=== PATIENT | female | born 1950 | race Caucasian/White ===

== ENCOUNTER → 2021-04-11 | Outpatient (CLI) | payer MEDICARE ==
[2021-04-11 15:46] LABS: U Amphetamine Screen Not Detected; U Barbituate Screen Not Detected; U Benzodiazapine Screen Not Detected; U Buprenorphine Screen Not Detected; U Cannabinoids Screen Not Detected; U Cocaine Screen Not Detected; U Methadone Screen Not Detected; U Methamphetamine Screen Not Detected; U Opiates Screen Not Detected; U Oxycodone Screen Not Detected; U Phencyclidine Screen Not Detected; U Propoxyphene Screen Not Detected
== END | disposition home or self-care (01) ==
LOC: LAB 12:45 → LAB SHORT 12:45
PROVIDERS: Family Medicine
DX: Z51.81 Encounter for therapeutic drug level monitoring (principal); Z79.891 Long term (current) use of opiate analgesic

== ENCOUNTER → 2021-10-27 | Outpatient (CLI) | payer MEDICARE, BC ==
[2021-10-27 11:51] LABS: U Amphetamine Screen Not Detected; U Barbituate Screen Not Detected; U Benzodiazapine Screen Not Detected; U Buprenorphine Screen Not Detected; U Cannabinoids Screen Not Detected; U Cocaine Screen Not Detected; U Methadone Screen Not Detected; U Methamphetamine Screen Not Detected; U Opiates Screen DETECTED; U Oxycodone Screen Not Detected; U Phencyclidine Screen Not Detected; U Propoxyphene Screen Not Detected
== END | disposition home or self-care (01) ==
LOC: LAB SHORT 10:05
PROVIDERS: Family Medicine
DX: Z51.81 Encounter for therapeutic drug level monitoring (principal); Z79.899 Other long term (current) drug therapy

== ENCOUNTER → 2022-02-03 | Outpatient (CLI) | payer MEDICARE, BC ==
[2022-02-03 18:37] LABS: Free Thyroxine 1.03 ng/dL (0.70-1.60)
[2022-02-03 18:42] LABS: Thyroid Stimulating Hormone 0.521 uIU/mL (0.360-4.800)
== END | disposition home or self-care (01) ==
LOC: LAB 10:45 → LAB SHORT 10:45 → LAB FUT 02-03 13:25 → EDSTATUS 02-03 13:25
PROVIDERS: Family Medicine
DX: E03.9 Hypothyroidism, unspecified (principal)
CPT/HCPCS: 84439; 84443

== ENCOUNTER → 2022-04-06 | Outpatient (CLI) | payer MEDICARE, BC ==
[2022-04-06 15:35] LABS: Percent Saturation 6.5 % (15.0-50.0)
[2022-04-06 16:03] LABS: BASOPHILS ABSOLUTE AUTO 0.09 K/mm3 (0.00-0.23); BASOPHILS PERCENT AUTO 1 % (0-2); EOSINOPHILS ABSOLUTE AUTO 0.28 K/mm3 (0.00-0.68); EOSINOPHILS PERCENT AUTO 5 % (0-6); Hematocrit 37.1 % (33.0-51.0); Hemoglobin 11.6 g/dL (11.5-16.0); IMMATURE GRAN ABSOLUTE AUTO 0.02 K/mm3 (0.00-0.10); IMMATURE GRAN PERCENT AUTO 0 % (0-1); LYMPHOCYTES ABSOLUTE AUTO 1.28 K/mm3 (0.84-5.20); LYMPHOCYTES PERCENT AUTO 21 % (21-46); MONOCYTES ABSOLUTE AUTO 0.59 K/mm3 (0.16-1.47); MONOCYTES PERCENT AUTO 10 % (4-13); Mean Corpuscular HGB 26.5 pg (26.0-34.0); Mean Corpuscular HGB Conc 31.3 g/dL (31.5-36.5); Mean Corpuscular Volume 85 fL (80-100); Mean Platelet Volume 11.1 fL (9.1-12.4); NEUTROPHILS ABSOLUTE AUTO 3.96 K/mm3 (1.96-9.15); NEUTROPHILS PERCENT AUTO 64 % (41-73); Platelet Count 429 K/mm3 (150-400); RDW Coefficient Variation 15.5 % (11.7-14.2); RDW Standard Deviation 47.9 fL (35.1-46.3); Red Blood Cell Count 4.38 M/mm3 (3.80-5.20); White Blood Cell Count 6.22 K/mm3 (4.00-11.30)
== END | disposition home or self-care (01) ==
LOC: LAB 13:03 → LAB SHORT 13:03
PROVIDERS: Family Medicine
DX: D50.9 Iron deficiency anemia, unspecified (principal); E03.9 Hypothyroidism, unspecified; R53.83 Other fatigue
CPT/HCPCS: 82728; 83540; 83550; 85025

== ENCOUNTER 2022-06-08 12:50 | Day surgery (SDC) | payer MEDICARE, BC ==
[~2022-06-08] VITALS: Ht 170.2 cm; Wt 98.3 kg
[2022-06-08] MEDS ORDERED: FLUO10 (13:45)
[2022-06-08] MEDS ORDERED: METO25ER (13:46)
[2022-06-08] MEDS ORDERED: LOSA25 (13:46)
[2022-06-08] MEDS ORDERED: PRAM.5 (13:47)
[2022-06-08] MEDS ORDERED: ACETAMIN-CODE12.5 M3 (13:47)
[2022-06-08] MEDS ORDERED: PREG100 (13:47)
[2022-06-08] MEDS ORDERED: FURO20 (13:47)
[2022-06-08] MEDS ORDERED: TIZA4 (13:48)
[2022-06-08] MEDS ORDERED: AMBIEN10 MG (13:48)
== END 2022-06-08 15:33 | disposition home or self-care (01) ==
LOC: ORSCSDS 12:50
PROVIDERS: Internal Medicine Gastroenterology
PROC: 0DB68ZX Excision of Stomach, Via Natural or Artificial Opening Endoscopic, Diagnostic (ICD-10-PCS; principal; 2022-06-08 14:30)
PROC: 0DB88ZX Excision of Small Intestine, Via Natural or Artificial Opening Endoscopic, Diagnostic (ICD-10-PCS; principal; 2022-06-08 14:30)
DX: D50.9 Iron deficiency anemia, unspecified (principal); R10.11 Right upper quadrant pain; Z98.84 Bariatric surgery status; K29.70 Gastritis, unspecified, without bleeding; Z79.899 Other long term (current) drug therapy
CPT/HCPCS: 88305; 88342; J0330; J0461; J2405; J2704; J7120

== ENCOUNTER → 2022-09-10 | Outpatient (CLI) | payer MEDICARE, BC ==
[~2022-09-10] MED LIST: ACETAMIN-CODE12.5 M3; AMBIEN10 MG; FLUO10; FURO20; LOSA25; METO25ER; PRAM.5; PREG100; TIZA4
== END ==
LOC: PLD 12:39 → LAB SHORT 12:39
DX: D48.5 Neoplasm of uncertain behavior of skin (principal)
CPT/HCPCS: 88305

== ENCOUNTER 2022-12-13 14:23 | Inpatient (IN) | payer MEDICARE, BC ==
[~2022-12-13] VITALS: Ht 170.2 cm; Wt 76.6 kg
[~2022-12-13 14:23] MED LIST changes: -Acetaminophen650 M1 PO; -FURO20 PO; -HYDROCODONE-AC1 EAC7 PO; -LEVOFLOXACIN250 M1 PO; -METO50ER PO; -NYSTRIT TOP; -PHOS-NAK PO; -PREGABALIN100 MG PO; -Prozac40 MG PO; -TRAZ100 PO; -VALSARTAN160 MG PO; -VISBIOME 112.51 EACH PO; -ZANAFLEX413 PO
[2022-12-13] MEDS ORDERED: ZANAFLEX413 PO (14:47)
[2022-12-13] MEDS ORDERED: PREGABALIN100 MG PO (14:47)
[2022-12-13] MEDS ORDERED: NYSTRIT TOP (14:48)
[2022-12-13] MEDS ORDERED: VALSARTAN160 MG PO (14:48)
[2022-12-13] MEDS ORDERED: TRAZ100 PO (14:48)
[2022-12-13] MEDS ORDERED: METO50ER PO (14:49)
[2022-12-13] MEDS ORDERED: HYDROCODONE-AC1 EAC7 PO (14:49)
[2022-12-13 17:15] LABS: Source, Urine Straight Cath
[2022-12-13 17:18] LABS: Appearance, Urine Hazy (Clear); Bilirubin, Urine Neg (Neg); Blood, Urine 1+ (Neg); Color, Urine Yellow (P-Yellow); Glucose Qualitative, Urine Neg (Neg); Ketones, Urine Neg (Neg); Leukocyte Esterase, Urine 2+ (Neg); Nitrite, Urine Pos (Neg); Protein, Urine 2+ (Neg); Urobilinogen, Urine NORM (Normal)
[2022-12-13 17:30] LABS: White Blood Cells, Urine 25-50 /hpf (0-5)
[2022-12-13 17:31] LABS: Bacteria Many /hpf; Hyaline Casts 0-2 /lpf (0-2); Squamous Epithelial Cells Rare /hpf (Few)
[2022-12-13] MEDS ORDERED: FURO20 PO (20:36)
[2022-12-13] MEDS ORDERED: Prozac40 MG PO (20:42)
[2022-12-13 22:01] VITALS: BP 117/77
[2022-12-13 22:07] LABS: Thyroid Stimulating Hormone 0.217 uIU/mL (0.360-4.800)
--- NOTE | 2022-12-14 03:33 | NUR ---
SHIFT SUMMARY NOC ADMIT FROM ED WITH DX OF CLARA/UTI. PT EXPERIENCED GROUND LEVEL FALL YESTERDAY AFTER HAVING DIZZYNESS/WEAKNESS FOR PAST 3 WEEKS. PT FELL AND BRACED WITH R ARM/HAND. IMAGING WAS NEGATIVE FOR FX. PT HAS HX OF MS SINCE 1996 AND HAS N/T IN ALL EXTREMETIES. PT ALSO HAS HX OF DVT AND D DIMER OF 3230 AND HAS LOWER VENOUS DUPLEX BL SCHEDULED FOR TODAY. PALLIATIVE CARE AND PT/OT CONSULTS ALSO SCHEDULED. PT POTASSIUM WAS 2.7 AND POOR RENAL FUNCTION LABS. PT IS A/O X 3-4 CAN BE FORGETFUL AT TIMES. PT IS 2PA TO BSC AND IS UNSTEADY OF FEET. PT HAS NS INFUSING @ 100 MLS/HR. PT DISCHARGE PENDING DIAGNOSTIC TEST AND LABS AFTER FLUID RECUSITATION AND POTASSIUM REPLACEMENT. DR QUINN FOLLOWS PT. PT IS CURRENTLY RESTING WITH BED ALARM ON, BED IN LOWEST POSITION, AND CALL LIGHT WITHIN REACH.
[2022-12-14 03:54] VITALS: BP 88/58
[2022-12-14 04:01] VITALS: BP 126/71
[2022-12-14 05:33] LABS: Albumin, Blood 3.1 g/dL (3.4-5.0); Anion Gap 5 mmol/L (6-16); Blood Urea Nitrogen 50 mg/dL (8-24); Bun/Creatinine Ratio 23.4 (12.0-20.0); CO2, Blood 24 mmol/L (21-32); Calcium, Blood 7.7 mg/dL (8.5-10.1); Chloride, Blood 115 mmol/L (98-108); Creatinine, Blood 2.14 mg/dL (0.40-1.00); Glomerular Filtration Rate 24 (60-); Glucose, Blood 107 mg/dL (70-99); Phosphorus, Blood 4.4 mg/dL (2.5-4.9); Potassium, Blood 3.8 mmol/L (3.5-5.5); Sodium, Blood 144 mmol/L (136-145)
[2022-12-14 07:46] VITALS: BP 94/60
--- NOTE | 2022-12-14 09:35 | NUR ---
pt laying in bed watching tv, a/ox3, pleasant and cooperative with care, follows commands well, denies pain at this time, lungs are clear t/o, resp even and unlabored, no cough noted, hrr, +1 edema noted to b/l le, ppp faint, cap refill <3sec, vs stable, afebrile, iv site to left fa, site has slight puffiness, and stops infusing, will place second iv later, +1 edema noted to b/l le, voids without diff, skin frail with bruising, coccyx is red but blanchable, has a right shoulder fx, arm is sore and can't move, refugio, call light in reach, Dr. Yang in to see pt, will keep one more day, may go home tomorrow.
[2022-12-14 19:19] VITALS: BP 123/78
--- NOTE | 2022-12-14 19:20 | NUR ---
Pt has had neck pain, provided rolled towel under neck for support which helped a bit, lost iv x2, infiltrated, charge nurse was not able to place power glide as veins are too small, notified Dr. she ok to stop fluid and change abx to oral, no further changes this shift, makes needs known, call light in reach.
--- NOTE | 2022-12-15 04:26 | NUR ---
SHIFT SUMMARY NO ACUTE CHANGES THIS SHIFT. PT CALLS WELL AND MAKES HER NEEDS KNOWN. SLEPT THROUGHOUT THE NIGHT COMFORTABLY. EAGER TO GO HOME. WILL REPORT TO ONCOMING NURSE.
[2022-12-15 06:04] LABS: Albumin, Blood 2.5 g/dL (3.4-5.0); Anion Gap 5 mmol/L (6-16); Blood Urea Nitrogen 29 mg/dL (8-24); Bun/Creatinine Ratio 22.5 (12.0-20.0); CO2, Blood 22 mmol/L (21-32); Chloride, Blood 117 mmol/L (98-108); Creatinine, Blood 1.29 mg/dL (0.40-1.00); Glomerular Filtration Rate 45 (60-); Glucose, Blood 87 mg/dL (70-99); Phosphorus, Blood 2.2 mg/dL (2.5-4.9); Potassium, Blood 3.6 mmol/L (3.5-5.5); Sodium, Blood 144 mmol/L (136-145)
[2022-12-15 06:25] VITALS: BP 90/67
[2022-12-15 07:41] VITALS: BP 93/76
[2022-12-15] MEDS ORDERED: Acetaminophen650 M1 PO (08:39)
[2022-12-15] MEDS ORDERED: LEVOFLOXACIN250 M1 PO (08:40)
[2022-12-15] MEDS ORDERED: VISBIOME 112.51 EACH PO (08:44)
[2022-12-15] MEDS ORDERED: PHOS-NAK PO (08:44)
--- NOTE | 2022-12-15 10:20 | NUR ---
PT AWAKE DURING SHIFT REPORT, SITTING UP IN BED. PT REQUESTED ASSIST TO BTHRM; SBA USING FWW. NO IV ACCESS AT START OF SHIFT. PT'S MEDS CHANGED TO PO FOR D/C HOME TODAY. D/C ORDERS PLACED. MEDS FAXED TO [facility], PER PT REQUEST. D/C INSTRUCTIONS AND MEDICATIONS REVIEWED WITH PT; VERBALIZED UNDERSTANDING. PT ABLE TO DRESS HERSELF AND NOTIFIED OF D/C. PT CALLED FOR ASSIST TO GO OUT VIA W/C WHEN AT ENTRANCE. ALL BELONGINGS WENT WITH PT.
== END 2022-12-15 09:50 | disposition home health service (06) | DRG 683 ==
LOC: ER 14:23 → MEDS 20:00 → ENPENDDIS 12-15 08:08 → MEDS 12-15 09:50
PROVIDERS: Emergency Medicine; Nurse Practitioner Acute Care; ADMIT Internal Medicine
DX: N17.9 Acute kidney failure, unspecified (principal); I47.1 Supraventricular tachycardia; I47.20 Ventricular tachycardia, unspecified; N39.0 Urinary tract infection, site not specified; Z51.5 Encounter for palliative care; Z66 Do not resuscitate; N18.31 Chronic kidney disease, stage 3a; I95.9 Hypotension, unspecified; I12.9 Hypertensive chronic kidney disease with stage 1 through stage 4 chronic kidney disease, or unspecified chronic kidney disease; G35 Multiple sclerosis; E86.1 Hypovolemia; R79.1 Abnormal coagulation profile; M25.531 Pain in right wrist; I87.2 Venous insufficiency (chronic) (peripheral); R63.4 Abnormal weight loss; B96.20 Unspecified Escherichia coli [E. coli] as the cause of diseases classified elsewhere; D63.1 Anemia in chronic kidney disease; R13.10 Dysphagia, unspecified; E87.6 Hypokalemia; D50.9 Iron deficiency anemia, unspecified; K25.9 Gastric ulcer, unspecified as acute or chronic, without hemorrhage or perforation; W18.30XA Fall on same level, unspecified, initial encounter; Z87.891 Personal history of nicotine dependence; Z68.25 Body mass index [BMI] 25.0-25.9, adult; Z96.611 Presence of right artificial shoulder joint; Z86.718 Personal history of other venous thrombosis and embolism; Z98.84 Bariatric surgery status; Z98.1 Arthrodesis status; Z79.899 Other long term (current) drug therapy; Z79.2 Long term (current) use of antibiotics; Z79.01 Long term (current) use of anticoagulants; Z79.891 Long term (current) use of opiate analgesic
CPT/HCPCS: 36415; 71045; 73090; 73110; 76770; 80069; 81001; 82550; 84443; 87077; 87086; 87186; 93005; 93010; 93970; 94760; 96361; 96365; 96375; 97110; 97166; 97535; 99285-25; A9270; J0696; J1644; J3480; J7030; P9612

== ENCOUNTER → 2022-12-13 | Outpatient (CLI) | payer MEDICARE, BC ==
[~2022-12-13] MED LIST changes: +Acetaminophen650 M1 PO; +FURO20 PO; +HYDROCODONE-AC1 EAC7 PO; +LEVOFLOXACIN250 M1 PO; +METO50ER PO; +NYSTRIT TOP; +PHOS-NAK PO; +PREGABALIN100 MG PO; +Prozac40 MG PO; +TRAZ100 PO; +VALSARTAN160 MG PO; +VISBIOME 112.51 EACH PO; +ZANAFLEX413 PO
[2022-12-13 13:26] LABS: BASOPHILS ABSOLUTE AUTO 0.07 K/mm3 (0.00-0.23); BASOPHILS PERCENT AUTO 1 % (0-2); EOSINOPHILS ABSOLUTE AUTO 0.13 K/mm3 (0.00-0.68); EOSINOPHILS PERCENT AUTO 1 % (0-6); Hematocrit 42.2 % (33.0-51.0); Hemoglobin 14.1 g/dL (11.5-16.0); IMMATURE GRAN ABSOLUTE AUTO 0.05 K/mm3 (0.00-0.10); IMMATURE GRAN PERCENT AUTO 1 % (0-1); LYMPHOCYTES ABSOLUTE AUTO 1.85 K/mm3 (0.84-5.20); LYMPHOCYTES PERCENT AUTO 20 % (21-46); MONOCYTES ABSOLUTE AUTO 0.58 K/mm3 (0.16-1.47); MONOCYTES PERCENT AUTO 6 % (4-13); Mean Corpuscular HGB 30.1 pg (26.0-34.0); Mean Corpuscular HGB Conc 33.4 g/dL (31.5-36.5); Mean Corpuscular Volume 90 fL (80-100); Mean Platelet Volume 10.4 fL (9.1-12.4); NEUTROPHILS ABSOLUTE AUTO 6.64 K/mm3 (1.96-9.15); NEUTROPHILS PERCENT AUTO 71 % (41-73); Platelet Count 322 K/mm3 (150-400); RDW Coefficient Variation 13.3 % (11.7-14.2); RDW Standard Deviation 43.8 fL (35.1-46.3); Red Blood Cell Count 4.68 M/mm3 (3.80-5.20); White Blood Cell Count 9.32 K/mm3 (4.00-11.30)
[2022-12-13 13:44] LABS: Albumin, Blood 3.7 g/dL (3.4-5.0); Albumin/Globulin Ratio 1.1 (0.8-1.8); Bilirubin, Total 0.4 mg/dL (0.1-1.0); Bun/Creatinine Ratio 14.7 (12.0-20.0); Calcium, Blood 8.4 mg/dL (8.5-10.1); Creatinine, Blood 4.09 mg/dL (0.40-1.00); Globulin, Blood 3.3 g/dL (2.2-4.0); Potassium, Blood 2.7 mmol/L (3.5-5.5)
== END | disposition home or self-care (01) ==
LOC: LAB 13:21 → LAB SHORT 13:21
PROVIDERS: Physician Assistant
DX: R55 Syncope and collapse (principal)
CPT/HCPCS: 80053; 84484; 85025; 85379

== ENCOUNTER → 2022-12-28 | Outpatient (CLI) | payer MEDICARE, BC ==
[~2022-12-28] MED LIST changes: +Acetaminophen650 M1 PO; +FURO20 PO; +HYDROCODONE-AC1 EAC7 PO; +LEVOFLOXACIN250 M1 PO; +METO50ER PO; +NYSTRIT TOP; +PHOS-NAK PO; +PREGABALIN100 MG PO; +Prozac40 MG PO; +TRAZ100 PO; +VALSARTAN160 MG PO; +VISBIOME 112.51 EACH PO; +ZANAFLEX413 PO
[2022-12-28 11:09] LABS: BASOPHILS ABSOLUTE AUTO 0.07 K/mm3 (0.00-0.23); BASOPHILS PERCENT AUTO 1 % (0-2); EOSINOPHILS ABSOLUTE AUTO 0.15 K/mm3 (0.00-0.68); EOSINOPHILS PERCENT AUTO 3 % (0-6); Hematocrit 41.3 % (33.0-51.0); Hemoglobin 13.7 g/dL (11.5-16.0); IMMATURE GRAN ABSOLUTE AUTO 0.01 K/mm3 (0.00-0.10); IMMATURE GRAN PERCENT AUTO 0 % (0-1); LYMPHOCYTES ABSOLUTE AUTO 1.28 K/mm3 (0.84-5.20); LYMPHOCYTES PERCENT AUTO 22 % (21-46); MONOCYTES ABSOLUTE AUTO 0.31 K/mm3 (0.16-1.47); MONOCYTES PERCENT AUTO 5 % (4-13); Mean Corpuscular HGB 30.6 pg (26.0-34.0); Mean Corpuscular HGB Conc 33.2 g/dL (31.5-36.5); Mean Corpuscular Volume 92 fL (80-100); Mean Platelet Volume 10.1 fL (9.1-12.4); NEUTROPHILS ABSOLUTE AUTO 4.09 K/mm3 (1.96-9.15); NEUTROPHILS PERCENT AUTO 69 % (41-73); Platelet Count 270 K/mm3 (150-400); RDW Coefficient Variation 14.5 % (11.7-14.2); RDW Standard Deviation 48.7 fL (35.1-46.3); Red Blood Cell Count 4.47 M/mm3 (3.80-5.20); White Blood Cell Count 5.91 K/mm3 (4.00-11.30)
[2022-12-28 11:25] LABS: Albumin, Blood 3.7 g/dL (3.4-5.0); Bilirubin, Total 0.5 mg/dL (0.1-1.0); Bun/Creatinine Ratio 10.9 (12.0-20.0); Calcium, Blood 8.7 mg/dL (8.5-10.1); Creatinine, Blood 1.19 mg/dL (0.40-1.00); Globulin, Blood 3.6 g/dL (2.2-4.0); Potassium, Blood 3.3 mmol/L (3.5-5.5); Total Protein, Blood 7.3 g/dL (6.4-8.2)
== END | disposition home or self-care (01) ==
LOC: LAB SHORT 11:05 → LAB 11:05
PROVIDERS: Family Medicine
DX: N18.4 Chronic kidney disease, stage 4 (severe) (principal)
CPT/HCPCS: 80053; 85025

== ENCOUNTER 2023-04-08 15:34 | Emergency (ER) | payer MEDICARE, BC ==
[~2023-04-08] VITALS: Ht 170.2 cm; Wt 75.8 kg
[2023-04-08] MEDS ORDERED: OXAYDO5 M1 PO (17:47)
[2023-04-08] MEDS ORDERED: DOC250 PO (17:49)
[2023-04-08 19:39] VITALS: BP 97/66
== END 2023-04-08 19:40 | disposition home or self-care (01) ==
LOC: ER 15:34
DX: S82.61XA Displaced fracture of lateral malleolus of right fibula, initial encounter for closed fracture (principal); W18.30XA Fall on same level, unspecified, initial encounter; Z79.899 Other long term (current) drug therapy; Z87.891 Personal history of nicotine dependence
CPT/HCPCS: 27788; 73610; 96372-59; 99283-25; A9270; J3010

== ENCOUNTER 2023-12-07 14:14 | Inpatient (IN) | payer MEDICARE, BC ==
[2023-12-07] VITALS (13 sets, daily range): BP systolic 82–137; BP diastolic 70–112
[~2023-12-07] VITALS: Ht 167.6 cm; Wt 64.0 kg
[~2023-12-07 14:14] MED LIST changes: +DOC250 PO; +OXAYDO5 M1 PO
[2023-12-07] MEDS ORDERED: NS IV ONE (14:40)
[2023-12-07] MEDS ORDERED: FOSPHENYTOIN PE IV ONE (14:40)
[2023-12-07 14:42] LABS: BASOPHILS ABSOLUTE AUTO 0.12 K/mm3 (0.00-0.23); BASOPHILS PERCENT AUTO 1 % (0-2); EOSINOPHILS ABSOLUTE AUTO 0.18 K/mm3 (0.00-0.68); EOSINOPHILS PERCENT AUTO 1 % (0-6); Hematocrit 42.7 % (33.0-51.0); Hemoglobin 13.6 g/dL (11.5-16.0); IMMATURE GRAN ABSOLUTE AUTO 0.09 K/mm3 (0.00-0.10); IMMATURE GRAN PERCENT AUTO 1 % (0-1); LYMPHOCYTES ABSOLUTE AUTO 3.35 K/mm3 (0.84-5.20); LYMPHOCYTES PERCENT AUTO 19 % (21-46); MONOCYTES ABSOLUTE AUTO 0.45 K/mm3 (0.16-1.47); MONOCYTES PERCENT AUTO 3 % (4-13); Mean Corpuscular HGB 30.1 pg (26.0-34.0); Mean Corpuscular HGB Conc 31.9 g/dL (31.5-36.5); Mean Corpuscular Volume 95 fL (80-100); Mean Platelet Volume 9.6 fL (9.1-12.4); NEUTROPHILS ABSOLUTE AUTO 13.55 K/mm3 (1.96-9.15); NEUTROPHILS PERCENT AUTO 76 % (41-73); Platelet Count 487 K/mm3 (150-400); RDW Coefficient Variation 14.9 % (11.7-14.2); RDW Standard Deviation 52.7 fL (35.1-46.3); Red Blood Cell Count 4.52 M/mm3 (3.80-5.20); White Blood Cell Count 17.74 K/mm3 (4.00-11.30)
[2023-12-07 15:00] LABS: Ethanol (Alcohol), Blood, Med <3 mg/dL
[2023-12-07 15:03] LABS: Alanine Aminotransfer (ALT/SGP 67 U/L (12-78); Albumin, Blood 3.8 g/dL (3.4-5.0); Albumin/Globulin Ratio 1.2 (0.8-1.8); Alk Phos 149 U/L (50-136); Anion Gap 17 mmol/L (3-11); Aspartate Aminotrans (AST/SGOT 56 U/L (12-37); Bilirubin, Total 0.5 mg/dL (0.1-1.0); Blood Urea Nitrogen 21 mg/dL (8-24); Bun/Creatinine Ratio 13.8 (12.0-20.0); CO2, Blood 14 mmol/L (21-32); Calcium, Blood 8.7 mg/dL (8.5-10.1); Chloride, Blood 108 mmol/L (98-108); Creatinine, Blood 1.52 mg/dL (0.40-1.00); Globulin, Blood 3.3 g/dL (2.2-4.0); Glomerular Filtration Rate 36 (60-); Glucose, Blood 283 mg/dL (70-99); Sodium, Blood 135 mmol/L (136-145); Total Protein, Blood 7.1 g/dL (6.4-8.2)
[2023-12-07 15:50] LABS: U Amphetamine Screen Not Detected; U Barbituate Screen Not Detected; U Benzodiazapine Screen Not Detected; U Buprenorphine Screen Not Detected; U Cannabinoids Screen Not Detected; U Cocaine Screen Not Detected; U Methadone Screen Not Detected; U Methamphetamine Screen Not Detected; U Opiates Screen Not Detected; U Oxycodone Screen Not Detected; U Phencyclidine Screen Not Detected
[2023-12-07] MEDS ORDERED: NS 1,000 ML IV SCH ×2 (15:50→17:35)
[2023-12-07] MEDS ORDERED: Acetaminophen 500 MG Tab PO ONE (15:50)
[2023-12-07 15:53] LABS: Source, Urine Straight Cath
[2023-12-07 15:56] LABS: Appearance, Urine Cloudy (Clear); Bilirubin, Urine Neg (Neg); Blood, Urine 2+ (Neg); Color, Urine Yellow (P-Yellow); Glucose Qualitative, Urine Neg (Neg); Ketones, Urine Neg (Neg); Leukocyte Esterase, Urine 1+ (Neg); Nitrite, Urine Neg (Neg); Protein, Urine 4+ (Neg); Urobilinogen, Urine NORM (Normal)
[2023-12-07 16:03] LABS: Bacteria Many /hpf; Squamous Epithelial Cells Many /hpf (Few)
[2023-12-07 16:04] LABS: Amorphous Light (0-Heavy); Red Blood Cells, Urine 0-2 /hpf (0-2)
[2023-12-07] MEDS ORDERED: CHOLESTYRAMI239.4 G1 PO (16:14)
[2023-12-07] MEDS ORDERED: PRAMIPEXOLE D0.25 M1 PO (16:14)
[2023-12-07] MEDS ORDERED: CALCITRIOL0.25 MC4 PO (16:14)
[2023-12-07] MEDS ORDERED: MIRT15ST PO (16:15)
[2023-12-07] MEDS ORDERED: TOPROL XL50 MG PO (16:15)
[2023-12-07] MEDS ORDERED: Ondansetron HCl 2 MG / ML 2ML Vial IV PRN (17:35)
[2023-12-07] MEDS ORDERED: Acetaminophen 325 MG TABLET PO PRN (17:35)
[2023-12-07] MEDS ORDERED: LORazepam 2 MG/ML 1ML Injection IV ONE (18:00)
[2023-12-07] MEDS ORDERED: NS 1,000 ML IV ONE ×2 (18:00→18:20)
[2023-12-07] MEDS ORDERED: levETIRAcetam 500 MG in NS 100 ML IV SCH (18:00)
[2023-12-07] MEDS ORDERED: LORazepam 2 MG/ML 1ML Injection IV PRN (18:00)
--- NOTE | 2023-12-07 18:04 | NUR ---
Telephone report from CATRINA Cordova RN. Pt will be coming to PCU 9 shortly. MRI pending.
[2023-12-07] MEDS ORDERED: Mirtazapine 15 MG SoluTab PO ONE (20:25)
[2023-12-07] MEDS ORDERED: Pramipexole DI-HCL 0.25 MG Tab PO SCH (21:00)
[2023-12-07] MEDS ORDERED: Pregabalin 50 MG Capsule PO SCH (21:00)
[2023-12-07] MEDS ORDERED: Heparin Sodium,Porcine 5,000 UNIT/0.5 ML SDV SC SCH (21:00)
[2023-12-07] MEDS ORDERED: TraZODone HCl 100 MG Tab PO SCH (21:00)
[2023-12-07] MEDS ORDERED: MIRTAZAPINE 7.5 MG PO SCH (21:00)
[2023-12-07] MEDS ORDERED: Mirtazapine 15 MG Tab PO SCH (21:00)
[2023-12-08] VITALS (32 sets, daily range): BP systolic 53–188; BP diastolic 33–102
[2023-12-08] MEDS ORDERED: Prozac20 MG PO (04:48)
[2023-12-08 06:08] LABS: Hemoglobin 11.9 g/dL (11.5-16.0); Mean Corpuscular HGB 29.6 pg (26.0-34.0); Mean Corpuscular HGB Conc 32.2 g/dL (31.5-36.5); Mean Corpuscular Volume 92 fL (80-100); Platelet Count 388 K/mm3 (150-400); RDW Coefficient Variation 15.6 % (11.7-14.2); RDW Standard Deviation 52.7 fL (35.1-46.3); Red Blood Cell Count 4.02 M/mm3 (3.80-5.20); White Blood Cell Count 9.14 K/mm3 (4.00-11.30)
[2023-12-08 06:35] LABS: Bun/Creatinine Ratio 14.8 (12.0-20.0); Calcium, Blood 8.1 mg/dL (8.5-10.1); Creatinine, Blood 1.42 mg/dL (0.40-1.00); Potassium, Blood 3.8 mmol/L (3.5-5.5)
--- NOTE | 2023-12-08 06:41 | NUR ---
SHIFT SUMMARY PATIENT ALERT AND ORIENTED X3, WAS CONFUSED AT BEGINNING OF SHIFT BUT MENTATION HAS BEEN CLEARING THE NIGHT HAS GONE ON. PATIENT IS WEAK AND UNSTEADY ON HER FEET, REQUIRING A 2 PERSON ASSIST TO THE BEDSIDE COMMODE. PATIENT IS ON ROOM AIR WITH SPO2 >90%. VITAL SIGNS STABLE, SINUS RHYTHM ON TELE. WILL CONTINUE TO MONITOR. CALL LIGHT WITHIN REACH.
[2023-12-08] MEDS ORDERED: Enoxaparin 40 MG/0.4 ML SYR SC SCH (09:00)
[2023-12-08] MEDS ORDERED: TiZANidine HCl 4 MG Tab PO SCH (09:00)
[2023-12-08] MEDS ORDERED: Calcitriol 0.25 MCG Cap PO SCH (09:00)
[2023-12-08] MEDS ORDERED: FLUoxetine HCL 20 MG CAP PO SCH (09:00)
[2023-12-08] MEDS ORDERED: Metoprolol Succinate 50 MG TABCR PO SCH (09:00)
[2023-12-08] MEDS ORDERED: Lactated Ringer's 1,000 ML IV ONE ×2 (09:08→09:10)
[2023-12-08] MEDS ORDERED: CefTRIAXone Sodium 1,000 MG in NS 100 ML IV SCH (09:22)
[2023-12-08] MEDS ORDERED: Cosyntropin 0.25 MG / ML 1ML Vial IV ONE (09:25)
[2023-12-08] MEDS ORDERED: NS 500 ML IV ONE (10:15)
--- NOTE | 2023-12-08 10:26 | NUR ---
AM NOTE AT APPROXIMATELY 0849 PT BEGAN COMPLAINING OF DIZZINESS. BP WAS TAKEN AND WAS 69/57, BP RETAKEN ON OTHER ARM WAS SHOWN TO BE 58/47. DR. NAIDU WAS CALLED AND PRESENTED TO ROOM, PT WAS PLACED IN TRENDELENBERG POSITION AND 1L BOLUS WAS STARTED. PT'S MENTATION HAD CHANGED TO DROWSY AND DIFFICULT TO WAKE. BP'S REMAINED SOFT. WITH BOLUS PT BEGAN TO REPORT FEELING BETTER AND APPEARED TO BE MORE WAKEFUL. WAS ALSO NOTIFIED BY TELE THAT PT HAD QTC PROLONGATION AT 6.06. PER BALAJI AGUILERA TO BE HELD. EKG COMPLETED. LABS DRAWN. PT CURRENTLY GETTING ECHO.
--- NOTE | 2023-12-08 12:00 | NUR ---
Pt is quite alert, oriented, and appropriate in conversation. Vital signs are stable. NS infusing now at 100 cc/hour. Bill at the bedside. Pt states she is not very hungry. States 50 pound weight loss since September this year.
[2023-12-08] MEDS ORDERED: Calcium Chloride 10% 1,000 MG in NS 50 ML IV SCH (13:00)
[2023-12-08] MEDS ORDERED: VALPROATE SODIUM IV SCH (13:00)
[2023-12-08] MEDS ORDERED: NS IV SCH (13:00)
[2023-12-08 13:33] LABS: Free Thyroxine 1.1 ng/dL (0.70-1.60); Triiodothyronine, Free 1.2 pg/mL (2.18-3.98)
--- NOTE | 2023-12-08 13:33 | NUR ---
Pt repositioned. B/P remains stable, and the pt is feeling well. She requested that the wick be removed, next time she would prefer to use the BSC. Assisted to reposition to her right side.
--- NOTE | 2023-12-08 14:20 | NUR ---
Pt continues to be alert, oriented and mentating well. Her vital signs remain stable.
--- NOTE | 2023-12-08 14:22 | NUR ---
MRI pending. sales service technician states they requested stat medical records re: her loop recorder from [facility] in [place], [place] in order to proceed.
[2023-12-08] MEDS ORDERED: NS 250 ML IV PRN (17:40)
--- NOTE | 2023-12-08 18:07 | NUR ---
SHIFT SUMMARY NO ACUTE CHANGES SINCE AM NOTE. PT HAS REMAINED A&O X4, BP REMAINED STABLE, NO C/O DIZZINESS, SOB, OR CP. PUREWICK IN PLACE, DRAINING CLEAR YELLOW URINE. SPO2 >90% ON RA. PT IS RESTING COMFORTABLY, CALL LIGHT WITHIN REACH, BED IN LOWEST POSITION, BREATHING EVEN AND UNLABORED.
[2023-12-09] VITALS (12 sets, daily range): BP systolic 85–159; BP diastolic 64–99
[2023-12-09 05:09] LABS: BASOPHILS ABSOLUTE AUTO 0.05 K/mm3 (0.00-0.23); BASOPHILS PERCENT AUTO 1 % (0-2); EOSINOPHILS ABSOLUTE AUTO 0.06 K/mm3 (0.00-0.68); EOSINOPHILS PERCENT AUTO 1 % (0-6); Hematocrit 33.2 % (33.0-51.0); Hemoglobin 10.4 g/dL (11.5-16.0); IMMATURE GRAN ABSOLUTE AUTO 0.04 K/mm3 (0.00-0.10); IMMATURE GRAN PERCENT AUTO 0 % (0-1); LYMPHOCYTES ABSOLUTE AUTO 2.31 K/mm3 (0.84-5.20); LYMPHOCYTES PERCENT AUTO 21 % (21-46); MONOCYTES ABSOLUTE AUTO 0.71 K/mm3 (0.16-1.47); MONOCYTES PERCENT AUTO 7 % (4-13); Mean Corpuscular HGB 29.5 pg (26.0-34.0); Mean Corpuscular HGB Conc 31.3 g/dL (31.5-36.5); Mean Corpuscular Volume 94 fL (80-100); Mean Platelet Volume 10.2 fL (9.1-12.4); NEUTROPHILS ABSOLUTE AUTO 7.81 K/mm3 (1.96-9.15); NEUTROPHILS PERCENT AUTO 71 % (41-73); Platelet Count 330 K/mm3 (150-400); RDW Coefficient Variation 16.1 % (11.7-14.2); RDW Standard Deviation 55.7 fL (35.1-46.3); Red Blood Cell Count 3.52 M/mm3 (3.80-5.20); White Blood Cell Count 10.98 K/mm3 (4.00-11.30)
[2023-12-09 05:56] LABS: Valproic Acid 41.3 ug/mL (50.0-100.0)
[2023-12-09 05:57] LABS: Alanine Aminotransfer (ALT/SGP 34 U/L (12-78); Albumin, Blood 2.9 g/dL (3.4-5.0); Albumin/Globulin Ratio 1.1 (0.8-1.8); Alk Phos 101 U/L (50-136); Anion Gap 13 mmol/L (3-11); Aspartate Aminotrans (AST/SGOT 21 U/L (12-37); Bilirubin, Total 0.2 mg/dL (0.1-1.0); Blood Urea Nitrogen 18 mg/dL (8-24); Bun/Creatinine Ratio 11.8 (12.0-20.0); CO2, Blood 18 mmol/L (21-32); Calcium, Blood 8.1 mg/dL (8.5-10.1); Chloride, Blood 118 mmol/L (98-108); Creatinine, Blood 1.53 mg/dL (0.40-1.00); Globulin, Blood 2.7 g/dL (2.2-4.0); Glomerular Filtration Rate 36 (60-); Glucose, Blood 78 mg/dL (70-99); Potassium, Blood 3.2 mmol/L (3.5-5.5); Sodium, Blood 146 mmol/L (136-145); Total Protein, Blood 5.6 g/dL (6.4-8.2)
--- NOTE | 2023-12-09 06:35 | NUR ---
SHIFT SUMMARY PATIENT ALERT AND ORIENTED X4. HAD NO COMPLAINTS OF PAIN OR SHORTNESS OF BREATH. ON ROOM AIR WITH SPO2 >90%. VITAL SIGNS STABLE, SINUS RHYTHM ON TELE. NO ACUTE ISSUES NOTED OVERNIGHT. WILL CONTINUE TO MONITOR. CALL LIGHT WITHIN REACH.
[2023-12-09] MEDS ORDERED: Potassium Chloride 10 Meq Tablet SA PO ONE (07:00)
--- NOTE | 2023-12-09 07:50 | NUR ---
AM ASSESSMENT: Pt resting in bed. Wakes to verbal stimulus. LS clear, HR reg. BT positive. Denies CP or SOB. BP stable this am. Pt is A/O x4. Updated on plan of care. Denies questions. WIll continue to monitor, call light in reach.
[2023-12-09] MEDS ORDERED: Divalproex Sodium 125 MG CAP PO SCH (09:00)
[2023-12-09] MEDS ORDERED: FLUoxetine HCL 20 MG CAP PO SCH (09:00)
[2023-12-09] MEDS ORDERED: Lactated Ringer's 1,000 ML IV ONE ×2 (11:01→11:10)
[2023-12-09 11:25] LABS: Bun/Creatinine Ratio 11.3 (12.0-20.0); Calcium, Blood 7.7 mg/dL (8.5-10.1); Creatinine, Blood 1.5 mg/dL (0.40-1.00); Potassium, Blood 3.9 mmol/L (3.5-5.5)
[2023-12-09 11:37] LABS: Hematocrit 27.2 % (33.0-51.0); Hemoglobin 8.8 g/dL (11.5-16.0)
[2023-12-09 12:34] LABS: BASOPHILS ABSOLUTE AUTO 0.05 K/mm3 (0.00-0.23); BASOPHILS PERCENT AUTO 1 % (0-2); EOSINOPHILS ABSOLUTE AUTO 0.11 K/mm3 (0.00-0.68); EOSINOPHILS PERCENT AUTO 1 % (0-6); Hematocrit 27.3 % (33.0-51.0); Hemoglobin 8.6 g/dL (11.5-16.0); IMMATURE GRAN ABSOLUTE AUTO 0.03 K/mm3 (0.00-0.10); IMMATURE GRAN PERCENT AUTO 0 % (0-1); LYMPHOCYTES PERCENT AUTO 20 % (21-46); MONOCYTES ABSOLUTE AUTO 0.58 K/mm3 (0.16-1.47); MONOCYTES PERCENT AUTO 7 % (4-13); Mean Corpuscular HGB 30.3 pg (26.0-34.0); Mean Corpuscular HGB Conc 31.5 g/dL (31.5-36.5); Mean Corpuscular Volume 96 fL (80-100); Mean Platelet Volume 10.2 fL (9.1-12.4); NEUTROPHILS PERCENT AUTO 72 % (41-73); Platelet Count 267 K/mm3 (150-400); RDW Coefficient Variation 16.1 % (11.7-14.2); RDW Standard Deviation 56.8 fL (35.1-46.3); Red Blood Cell Count 2.84 M/mm3 (3.80-5.20); White Blood Cell Count 8.67 K/mm3 (4.00-11.30)
[2023-12-09 12:38] LABS: Bun/Creatinine Ratio 12.2 (12.0-20.0); Calcium, Blood 7.4 mg/dL (8.5-10.1); Creatinine, Blood 1.48 mg/dL (0.40-1.00)
--- NOTE | 2023-12-09 16:37 | NUR ---
[facility] visit conducted. I visited with patient's spouse in the hallway yesterday and with the patient today. We talk about how the patient was deeply concerned about her yesterday but today some friends from [place] arrived to help both of them through this season. Patient is so pleasant and thoughtful. She talks at length about her life; the places they have lived the careers they have had and the friends they have met along the way. She tells me about her hobbies and the places that inspire and fill her. I normalize her fears and feelings, and provide therapeutic listening and a calming presence. Patient voices her appreciation for the visit.
[2023-12-09 17:29] LABS: Hematocrit 32.9 % (33.0-51.0); Hemoglobin 10.5 g/dL (11.5-16.0)
--- NOTE | 2023-12-09 18:10 | NUR ---
SHIFT SUMMARY: Pt was hypotensive this afternoon and required a 1L bolus of LR. This brought BP back up to within normal range. Pt was not symptomatic with the low BP. Denied dizziness or lightheadedness. Pt had EEG today as wall as CT scan of chest, abd and pelvis. No s/s of siezure activity today. No other changes. Stable at this time. Will report to night RN.
[2023-12-09] MEDS ORDERED: TraZODone HCl 50 MG Tab PO SCH (21:00)
[2023-12-09] MEDS ORDERED: Lactobacil 2-S.Thermo-Bifido 1 1 Cap PO SCH (21:00)
[2023-12-10] VITALS (10 sets, daily range): BP systolic 117–185; BP diastolic 70–117
[2023-12-10 04:11] LABS: Hematocrit 34.5 % (33.0-51.0); Hemoglobin 11.1 g/dL (11.5-16.0)
--- NOTE | 2023-12-10 06:04 | NUR ---
SHIFT SUMMARY NO ACUTE CHANGES THIS SHIFT. VSS. REMAINS AXO4, NO SEIZURE LIKE EVENTS THIS SHIFT. BP STABLE. REMAINS ON RA. QT ACCORDING TO TELE IS 470. CONTINUING TO AVOID PROLONGING AGENTS. PT HAS RESTED OFF AND ON THIS SHIFT. HAS HAD A FEW LOOSE STOOLS AND OTHERWISE NOT CALLED MUCH. BED ALARM ON AND CALL LIGHT WTHIN REACH.
[2023-12-10 08:03] LABS: Calcium, Blood 8.4 mg/dL (8.5-10.1); Creatinine, Blood 1.43 mg/dL (0.40-1.00); Potassium, Blood 4.2 mmol/L (3.5-5.5)
[2023-12-10] MEDS ORDERED: TiZANidine HCl 4 MG Tab PO SCH (09:00)
--- NOTE | 2023-12-10 09:42 | NUR ---
PT TO MRI AT THIS TIME.
--- NOTE | 2023-12-10 10:56 | NUR ---
AM NOTE: THIS RN ASSUMED CARE OF PT AT APPROX 0700. PT ALERT, ORIENTED X4 THIS AM. ABLE TO CALL APPROPRIATELY & COMMUNICATE NEEDS. UP TO CHAIR FOR BREAKFAST. HR 80'S, SINUS ON TELE. SBP 170'S, MD AWARE. DENIES CHEST PAIN/PRESSURE. SPO2 >95% ON RA, DENIES SOB. MRI COMPLETED THIS AM. PT W/ VISITORS AT BEDSIDE AT THIS TIME. SEE ASSESSMENT FOR FURTHER DETAILS. CALL LIGHT IN REACH.
[2023-12-10 12:16] LABS: Stool Occult Bld Immuno 1 Negative (NEGATIVE)
[2023-12-10 17:08] LABS: Bun/Creatinine Ratio 15.7 (12.0-20.0); Calcium, Blood 8.8 mg/dL (8.5-10.1); Creatinine, Blood 1.59 mg/dL (0.40-1.00); Potassium, Blood 4.3 mmol/L (3.5-5.5)
--- NOTE | 2023-12-10 17:35 | NUR ---
END OF SHIFT NOTE: NO ACUTE EVENTS THIS SHIFT. PT LETHARGIC THIS AFTERNOON. ORIENTED X4, ABLE TO CALL APPROPRIATELY & COMMUNICATE NEEDS. HR 70-80'S, SINUS ON TELE. SBP 140-170'S. SPO2 >95% ON RA. MRI COMPLETED THIS SHIFT. NO S/SX OF SEIZURE ACTIVITY. PT ABLE TO WORK W/ PHYSICAL THERAPY THIS AFTERNOON & AMBULATE W/ FWW INTO HALLWAY. ABLE TO REPOSITION IN BED INDEPENDENTLY, 1P SBA TO BATHROOM. ADEQUATE PO INTAKE THIS SHIFT. DENIES N/V. NO OTHER NEEDS AT THIS TIME. PT RESTING IN BED W/ CALL LIGHT IN REACH.
--- NOTE | 2023-12-10 17:55 | NUR ---
PHYSICIAN CONTACT: PT'S SBP 180'S THIS EVENING. CALL TO MD NAIDU. ORDERS RECEIVED TO START METOPROLOL NOW, SEE EMAR.
[2023-12-10] MEDS ORDERED: Metoprolol Tartrate 25 MG Tab PO SCH ×2 (18:00→21:00)
--- NOTE | 2023-12-10 18:31 | NUR ---
PT MOVED FROM PCU-9 TO PCU-15.
[2023-12-10] MEDS ORDERED: HydrALAZINE HCl 20 MG / ML 1ML Vial IV ONE (21:15)
[2023-12-11 03:40] VITALS: BP 146/85
--- NOTE | 2023-12-11 04:47 | NUR ---
SHIFT SUMMARY PATIENT ALERT AND ORIENTED x4. ABLE TO MAKE NEEDS KNOWN TO STAFF. NO SEIZURE LIKE ACTIVITY NOTED THIS SHIFT. TELE READING SR 70s DURING THE NIGHT. PATIENT HYPERTENSIVE BUT RESPONDED WELL TO OT PRN DOSE OF HYDRALAZINE. REMAINED ON RA WITH SPO2 >90%. PATIENT AMBULATING INTO BATHROOM STANDBY ASSIST USING A WALKER. NO OTHER SIGNIFICANT CHANGES DURING THE NIGHT. WILL REPORT TO DAY SHIFT RN.
[2023-12-11 06:52] LABS: Albumin, Blood 2.9 g/dL (3.4-5.0); Albumin/Globulin Ratio 1.1 (0.8-1.8); Bilirubin, Total 0.3 mg/dL (0.1-1.0); Bun/Creatinine Ratio 15.9 (12.0-20.0); Calcium, Blood 8.3 mg/dL (8.5-10.1); Creatinine, Blood 1.38 mg/dL (0.40-1.00); Globulin, Blood 2.6 g/dL (2.2-4.0); Potassium, Blood 3.7 mmol/L (3.5-5.5); Total Protein, Blood 5.5 g/dL (6.4-8.2)
[2023-12-11 07:01] LABS: BASOPHILS ABSOLUTE AUTO 0.05 K/mm3 (0.00-0.23); BASOPHILS PERCENT AUTO 1 % (0-2); EOSINOPHILS ABSOLUTE AUTO 0.37 K/mm3 (0.00-0.68); EOSINOPHILS PERCENT AUTO 6 % (0-6); Hematocrit 34.5 % (33.0-51.0); Hemoglobin 11.2 g/dL (11.5-16.0); IMMATURE GRAN ABSOLUTE AUTO 0.03 K/mm3 (0.00-0.10); IMMATURE GRAN PERCENT AUTO 1 % (0-1); LYMPHOCYTES ABSOLUTE AUTO 1.71 K/mm3 (0.84-5.20); LYMPHOCYTES PERCENT AUTO 29 % (21-46); MONOCYTES ABSOLUTE AUTO 0.47 K/mm3 (0.16-1.47); MONOCYTES PERCENT AUTO 8 % (4-13); Mean Corpuscular HGB 30.1 pg (26.0-34.0); Mean Corpuscular HGB Conc 32.5 g/dL (31.5-36.5); Mean Corpuscular Volume 93 fL (80-100); Mean Platelet Volume 10.2 fL (9.1-12.4); NEUTROPHILS ABSOLUTE AUTO 3.22 K/mm3 (1.96-9.15); NEUTROPHILS PERCENT AUTO 55 % (41-73); Platelet Count 312 K/mm3 (150-400); RDW Coefficient Variation 16.6 % (11.7-14.2); RDW Standard Deviation 56.2 fL (35.1-46.3); Red Blood Cell Count 3.72 M/mm3 (3.80-5.20); White Blood Cell Count 5.85 K/mm3 (4.00-11.30)
[2023-12-11 07:34] VITALS: BP 142/90
[2023-12-11] MEDS ORDERED: FentaNYL Citrate 50 MCG/ML 2 ML Injection IV PRN (09:00)
--- NOTE | 2023-12-11 10:18 | NUR ---
UPDATE PROVIDED TO PT'S , FAINA. DISCUSSED POTENTIAL DISCHARGE THIS PM. FAINA WILL BE PT'S RIDE HOME, REQUESTS CALL WHEN DISCHARGE IS NEAR.
--- NOTE | 2023-12-11 10:36 | NUR ---
AM NOTE: THIS RN ASSUMED CARE OF PT AT APPROX 0700. PT ALERT, ORIENTED X4 THIS AM. ABLE TO CALL APPROPRIATELY & COMMUNICATE NEEDS. C/O HEADACHE W/ 04/18 PAIN, MEDICATED PER EMAR. HR 80'S, SINUS ON TELE. SBP 140'S, DENIES CHEST PAIN/PRESSURE. SPO2 >95% ON RA, DENIES SOB. PER MD, PLANS TO POSSIBLY DISCHARGE THIS AFTERNOON IF MIGRAINE RESOLVES. UP TO BATHROOM W/ FWW & SBA, 1 BM. NO OTHER NEEDS AT THIS TIME, CALL LIGHT IN REACH.
[2023-12-11 11:55] VITALS: BP 144/89
[2023-12-11] MEDS ORDERED: DIVA500ER PO (13:59)
[2023-12-11] MEDS ORDERED: VISBIOME 112.51 EACH PO (14:00)
[2023-12-11] MEDS ORDERED: Cefpodoxime Pr100 MG PO (14:02)
--- NOTE | 2023-12-11 15:23 | NUR ---
DISCHARGE NOTE: PT WAS DISCHARGED AT 1500. NO ACUTE EVENTS THIS SHIFT PRIOR TO DISCHARGE. PT STATES HEADACHE HAS RESOLVED FOLLOWING MEDICATION ADMINISTRATION PER EMAR. VSS. POWERGLIDE REMOVED W/O DIFFICULTY. DISCHARGE INSTRUCTIONS REVIEWED W/ PATIENT AND FAMILY BY THIS RN; PT EXPRESSES UNDERSTANDING. EDUCATION PROVIDED. PT ASSISTED W/ CHANGING BY FAMILY MEMBER PER PT REQUEST. WHEELED OUT TO PRIVATE VEHICLE BY STAFF W/ ALL PERSONAL BELONGINGS.
== END 2023-12-11 15:08 | disposition home or self-care (01) | DRG 100 ==
LOC: ER 14:14 → MEDS 14:15 → PCU 18:32
PROVIDERS: Emergency Medicine; Family Medicine; Internal Medicine; Nurse Practitioner Acute Care; Student in an Organized Health Care Education/Training Program; ADMIT Family Medicine
PROC: 3E033XZ Introduction of Vasopressor into Peripheral Vein, Percutaneous Approach (ICD-10-PCS; principal; 2023-12-08)
PROC: 30233N1 Transfusion of Nonautologous Red Blood Cells into Peripheral Vein, Percutaneous Approach (ICD-10-PCS; 2023-12-08)
DX: G40.409 Other generalized epilepsy and epileptic syndromes, not intractable, without status epilepticus (principal); G92.8 Other toxic encephalopathy; E87.20 Acidosis, unspecified; N39.0 Urinary tract infection, site not specified; I47.20 Ventricular tachycardia, unspecified; N18.30 Chronic kidney disease, stage 3 unspecified; Z66 Do not resuscitate; D63.1 Anemia in chronic kidney disease; E83.51 Hypocalcemia; I95.9 Hypotension, unspecified; G35 Multiple sclerosis; R94.31 Abnormal electrocardiogram [ECG] [EKG]; I12.9 Hypertensive chronic kidney disease with stage 1 through stage 4 chronic kidney disease, or unspecified chronic kidney disease; D50.9 Iron deficiency anemia, unspecified; E04.9 Nontoxic goiter, unspecified; Z86.718 Personal history of other venous thrombosis and embolism; Z79.899 Other long term (current) drug therapy; Z87.891 Personal history of nicotine dependence; Z98.890 Other specified postprocedural states
CPT/HCPCS: 36415; 70450; 70551; 71045; 71260; 74177; 80048; 80053; 80164; 80400; 81001; 82274; 82330; 82533; 82550; 82947; 83735; 84439; 84443; 84481; 85014; 85018; 85025; 85027; 86850; 86900; 86901; 86923; 87077; 87086; 87186; 93005; 93010; 93306; 94762; 95819; 96361; 96365; 96367; 96372; 96375; 97112; 97116; 97162; 99285-25; A9270; G0378; J0360; J0696; J0834; J1644; J1953; J3010; J7030; J7040; J7050; J7120; Q2009; Q9967

== ENCOUNTER → 2023-12-16 | Outpatient (CLI) | payer MEDICARE, BC ==
[~2023-12-16] MED LIST changes: +CALCITRIOL0.25 MC4 PO; +CHOLESTYRAMI239.4 G1 PO; +Cefpodoxime Pr100 MG PO; +DIVA500ER PO; +MIRT15ST PO; +PRAMIPEXOLE D0.25 M1 PO; +Prozac20 MG PO; +TOPROL XL50 MG PO
[2023-12-16 16:59] LABS: Source, Urine Clean Catch
[2023-12-16 18:45] LABS: Appearance, Urine Cloudy (Clear); Bilirubin, Urine Neg (Neg); Blood, Urine 4+ (Neg); Color, Urine Yellow (P-Yellow); Glucose Qualitative, Urine Neg (Neg); Ketones, Urine 1+ (Neg); Leukocyte Esterase, Urine 3+ (Neg); Nitrite, Urine Neg (Neg); Protein, Urine 2+ (Neg); Urobilinogen, Urine NORM (Normal)
[2023-12-16 19:04] LABS: Bacteria Many /hpf; Hyaline Casts 0-2 /lpf (0-2); Yeast/Fungi Urine Many /hpf
[2023-12-16 19:05] LABS: Calcium Oxalate Crystals Mod /hpf; Squamous Epithelial Cells Mod /hpf (Few); White Blood Cells, Urine 50-100 /hpf (0-5)
== END ==
LOC: LAB SHORT 10:30 → LAB 10:30
PROVIDERS: Nurse Practitioner Family
DX: N39.0 Urinary tract infection, site not specified (principal)
CPT/HCPCS: 81001; 87086

== ENCOUNTER → 2024-04-05 | Outpatient (CLI) | payer MEDICARE, BC ==
[2024-04-06 14:44] LABS: Adenovirus F 40/41 Not Detected (NOT DETECT); Astrovirus Not Detected (NOT DETECT); Campylobacter Sp Not Detected (NOT DETECT); Cryptosporidium Not Detected (NOT DETECT); Cyclospora Cayetanensis Not Detected (NOT DETECT); E. Coli O157 Not Detected (NOT DETECT); Entamoeba Histolytica Not Detected (NOT DETECT); Enteroaggregative E. coli-EAEC Not Detected (NOT DETECT); Enteropathogenic E. coli-EPEC Not Detected (NOT DETECT); Enterotoxigenic E. coli-ETEC Not Detected (NOT DETECT); Giardia Lamblia Not Detected (NOT DETECT); Norovirus GI/GII Not Detected (NOT DETECT); Plesiomonas Shigelloides Not Detected (NOT DETECT); Rotavirus A Not Detected (NOT DETECT); Salmonella Sp Not Detected (NOT DETECT); Sapovirus Not Detected (NOT DETECT); Shiga Toxin-prod E. coli-STEC Not Detected (NOT DETECT); Shigella/Enteroin E. coli-EIEC Not Detected (NOT DETECT); Vibrio Cholerae Not Detected (NOT DETECT); Vibrio Sp Not Detected (NOT DETECT); Yersinia Enterocolitica Not Detected (NOT DETECT)
[2024-04-09 12:23] LABS: PANCREATIC ELASTASE,FECAL 61 ug/g (>=100)
== END ==
LOC: LAB 20:00 → LAB SHORT 20:00
PROVIDERS: Internal Medicine Endocrinology, Diabetes & Metabolism
DX: K52.9 Noninfective gastroenteritis and colitis, unspecified (principal)
CPT/HCPCS: 82653; 87507

== ENCOUNTER 2024-04-23 04:35 | Emergency (ER) | payer MEDICARE, BC ==
[~2024-04-23] VITALS: Ht 170.2 cm; Wt 59.0 kg
[2024-04-23] MEDS ORDERED: Ondansetron HCl 2 MG / ML 2ML Vial IV PRN (04:55)
[2024-04-23] MEDS ORDERED: Ipratropium/Albuterol SulF 2.5-0.5MG/3 ML Amp INH ONE (05:15)
[2024-04-23 05:49] LABS: Albumin, Blood 3.3 g/dL (3.4-5.0); Albumin/Globulin Ratio 0.9 (0.8-1.8); Bilirubin, Total 0.5 mg/dL (0.1-1.0); Bun/Creatinine Ratio 16.8 (12.0-20.0); Creatinine, Blood 1.31 mg/dL (0.40-1.00); Globulin, Blood 3.6 g/dL (2.2-4.0); Potassium, Blood 4.7 mmol/L (3.5-5.5); Total Protein, Blood 6.9 g/dL (6.4-8.2)
[2024-04-23] MEDS ORDERED: Ondansetron HCl 2 MG / ML 2ML Vial IV ONE (06:20)
[2024-04-23] MEDS ORDERED: Morphine Sulfate 4 MG/1 ML Injection IV ONE (06:20)
[2024-04-23] MEDS ORDERED: NS 1,000 ML IV SCH ×2 (06:20→10:50)
[2024-04-23 06:36] LABS: BASOPHILS ABSOLUTE AUTO 0.07 K/mm3 (0.00-0.23); BASOPHILS PERCENT AUTO 1 % (0-2); EOSINOPHILS ABSOLUTE AUTO 0.29 K/mm3 (0.00-0.68); EOSINOPHILS PERCENT AUTO 4 % (0-6); Hematocrit 30.7 % (33.0-51.0); Hemoglobin 9.9 g/dL (11.5-16.0); IMMATURE GRAN ABSOLUTE AUTO 0.02 K/mm3 (0.00-0.10); IMMATURE GRAN PERCENT AUTO 0 % (0-1); LYMPHOCYTES ABSOLUTE AUTO 1.81 K/mm3 (0.84-5.20); LYMPHOCYTES PERCENT AUTO 27 % (21-46); MONOCYTES ABSOLUTE AUTO 0.64 K/mm3 (0.16-1.47); MONOCYTES PERCENT AUTO 9 % (4-13); Mean Corpuscular HGB 30.7 pg (26.0-34.0); Mean Corpuscular HGB Conc 32.2 g/dL (31.5-36.5); Mean Corpuscular Volume 95 fL (80-100); Mean Platelet Volume 10.3 fL (9.1-12.4); NEUTROPHILS ABSOLUTE AUTO 3.95 K/mm3 (1.96-9.15); NEUTROPHILS PERCENT AUTO 58 % (41-73); Platelet Count 292 K/mm3 (150-400); RDW Coefficient Variation 14.3 % (11.7-14.2); RDW Standard Deviation 49.5 fL (35.1-46.3); Red Blood Cell Count 3.23 M/mm3 (3.80-5.20); White Blood Cell Count 6.78 K/mm3 (4.00-11.30)
[2024-04-23] MEDS ORDERED: Prochlorperazine Edisylate 10 mg Vial IV ONE (07:35)
[2024-04-23 08:04] LABS: Source, Urine Clean Catch
[2024-04-23 08:12] LABS: Appearance, Urine Clear (Clear); Bilirubin, Urine Neg (Neg); Blood, Urine Neg (Neg); Color, Urine Yellow (P-Yellow); Glucose Qualitative, Urine Neg (Neg); Ketones, Urine Neg (Neg); Leukocyte Esterase, Urine Neg (Neg); Nitrite, Urine Neg (Neg); Protein, Urine 1+ (Neg); Specific Gravity, Urine 1.015 (1.003-1.022); Urobilinogen, Urine NORM (Normal)
[2024-04-23] MEDS ORDERED: Doxycycline Hyclate 100 MG TAB PO ONE ×2 (08:45→13:20)
[2024-04-23] MEDS ORDERED: DOXY100 PO ×2 (08:52)
[2024-04-23 13:15] VITALS: BP 101/90
[2024-05-25] MEDS ORDERED: OMEP20ER PO ×2 (07:27)
[2024-05-25] MEDS ORDERED: BACLOFEN10 M4 PO ×2 (07:31)
[2024-05-25] MEDS ORDERED: ONDANSETRON ODT16 MG PO ×2 (07:44)
[2024-05-25] MEDS ORDERED: ZONI100 PO ×2 (07:45)
[2024-05-25] MEDS ORDERED: LOSARTAN POTASS25 M2 PO ×2 (07:48)
[2024-05-25] MEDS ORDERED: DOXEPIN HCL3 MG PO ×2 (07:50)
[2024-05-29] MEDS ORDERED: PANT40 PO ×2 (12:40)
[2024-05-29] MEDS ORDERED: FOLIC ACID0.8 MG PO ×2 (16:01)
[2024-05-29] MEDS ORDERED: LEVE500 PO ×2 (16:01)
== END 2024-04-23 13:29 | disposition home or self-care (01) ==
LOC: ER 04:35
PROVIDERS: Student in an Organized Health Care Education/Training Program
DX: A04.8 Other specified bacterial intestinal infections (principal); I12.9 Hypertensive chronic kidney disease with stage 1 through stage 4 chronic kidney disease, or unspecified chronic kidney disease; N18.30 Chronic kidney disease, stage 3 unspecified; Z87.891 Personal history of nicotine dependence; Z79.899 Other long term (current) drug therapy
CPT/HCPCS: 71045; 74177; 80053; 83690; 85025; 93005; 93010; 96361; 96374-59; 96375; 99285-25; A9270; J0780; J2270; J2405; J7030; Q9967

== ENCOUNTER 2024-05-24 06:52 | Inpatient (IN) | payer MEDICARE, BC ==
[2024-05-24] VITALS (7 sets, daily range): BP systolic 95–189; BP diastolic 59–105
[~2024-05-24] VITALS: Ht 170.2 cm; Wt 62.2 kg
[~2024-05-24 06:52] MED LIST changes: +DOXY100 PO
[2024-05-24] MEDS ORDERED: Ondansetron HCl 2 MG / ML 2ML Vial IV ONE (07:05)
[2024-05-24 07:09] LABS: BASOPHILS ABSOLUTE AUTO 0.07 K/mm3 (0.00-0.23); BASOPHILS PERCENT AUTO 1 % (0-2); EOSINOPHILS ABSOLUTE AUTO 0.13 K/mm3 (0.00-0.68); EOSINOPHILS PERCENT AUTO 2 % (0-6); Hemoglobin 10.3 g/dL (11.5-16.0); IMMATURE GRAN ABSOLUTE AUTO 0.02 K/mm3 (0.00-0.10); IMMATURE GRAN PERCENT AUTO 0 % (0-1); LYMPHOCYTES ABSOLUTE AUTO 1.71 K/mm3 (0.84-5.20); LYMPHOCYTES PERCENT AUTO 30 % (21-46); MONOCYTES PERCENT AUTO 11 % (4-13); Mean Corpuscular HGB 29.9 pg (26.0-34.0); Mean Corpuscular HGB Conc 31.2 g/dL (31.5-36.5); Mean Corpuscular Volume 96 fL (80-100); Mean Platelet Volume 10.2 fL (9.1-12.4); NEUTROPHILS ABSOLUTE AUTO 3.11 K/mm3 (1.96-9.15); NEUTROPHILS PERCENT AUTO 55 % (41-73); Platelet Count 297 K/mm3 (150-400); RDW Coefficient Variation 14.7 % (11.7-14.2); RDW Standard Deviation 50.9 fL (35.1-46.3); Red Blood Cell Count 3.45 M/mm3 (3.80-5.20); White Blood Cell Count 5.64 K/mm3 (4.00-11.30)
[2024-05-24] MEDS ORDERED: FentaNYL Citrate 50 MCG/ML 2 ML Injection IV ONE (07:20)
[2024-05-24 07:36] LABS: Albumin, Blood 3.2 g/dL (3.4-5.0); Bilirubin, Total 0.3 mg/dL (0.1-1.0); Bun/Creatinine Ratio 14.2 (12.0-20.0); Calcium, Blood 8.9 mg/dL (8.5-10.1); Creatinine, Blood 1.62 mg/dL (0.40-1.00); Globulin, Blood 3.1 g/dL (2.2-4.0); Potassium, Blood 4.1 mmol/L (3.5-5.5); Total Protein, Blood 6.3 g/dL (6.4-8.2)
[2024-05-24] MEDS ORDERED: Morphine Sulfate 4 MG/1 ML Injection IV ONE (07:50)
[2024-05-24] MEDS ORDERED: Ketorolac Tromethamine 30mg Vial IV ONE (07:50)
[2024-05-24] MEDS ORDERED: Atropine/Scopalam/Hyoscam/PB 5 ML UDC PO ONE (08:25)
[2024-05-24 08:50] LABS: Beta-hydroxybutyrate 10.5 mg/dL (0.2-2.8); Ethanol (Alcohol), Blood, Med <3 mg/dL
[2024-05-24 09:21] LABS: Base Excess Venous -10.2 mmol/L; Bicarbonate Venous 16.7 mmol/L (24.0-30.0); PCO2 Venous 38.3 mmHg (38-42); pH Blood Venous 7.25 (7.34-7.37)
[2024-05-24 09:54] LABS: Source, Urine Clean Catch
[2024-05-24 09:56] LABS: Appearance, Urine Clear (Clear); Bilirubin, Urine Neg (Neg); Blood, Urine Neg (Neg); Color, Urine Yellow (P-Yellow); Glucose Qualitative, Urine Neg (Neg); Ketones, Urine Neg (Neg); Leukocyte Esterase, Urine Neg (Neg); Nitrite, Urine Neg (Neg); Protein, Urine 1+ (Neg); Specific Gravity, Urine 1.015 (1.003-1.022); Urobilinogen, Urine NORM (Normal)
[2024-05-24] MEDS ORDERED: HYDROmorphone HCl/Pf 1MG SYR IV ONE (10:15)
[2024-05-24] MEDS ORDERED: Mag Hydrox/AL Hydrox/Simeth 30 ML UDC PO ONE (10:25)
[2024-05-24] MEDS ORDERED: Pantoprazole Sodium 40 MG Injection IV ONE (10:25)
[2024-05-24] MEDS ORDERED: Nitroglycerin 0.4 MG SUBL SL ONE (12:30)
[2024-05-24] MEDS ORDERED: Nitroglycerin/D5W 250 ML IV SCH (12:30)
[2024-05-24] MEDS ORDERED: Aspirin 325 MG Tab PO ONE (12:30)
[2024-05-24 12:34] LABS: Base Excess Venous -7.4 mmol/L; Bicarbonate Venous 18.9 mmol/L (24.0-30.0); PCO2 Venous 33.5 mmHg (38-42); pH Blood Venous 7.35 (7.34-7.37)
[2024-05-24 13:04] LABS: Anti-Xa UFH, PHA Monitoring <0.10 IU/mL; Prothrombin Time Results 10.7 Sec (9.7-11.5)
[2024-05-24] MEDS ORDERED: Heparin Sodium,Porcine/0.5 NS 500 ML IV SCH (13:40)
[2024-05-24] MEDS ORDERED: NS 1,000 ML IV SCH (13:40)
[2024-05-24] MEDS ORDERED: Heparin Sodium 5000 Units/ML 1ML MDV IV ONE (13:40)
[2024-05-24] MEDS ORDERED: FLU VACC TS2024-25(6MOS UP)/PF 45 MCG/0.5 ML SYRINGE IM SCH (13:40)
[2024-05-24] MEDS ORDERED: Ondansetron HCl 2 MG / ML 2ML Vial IV PRN (13:40)
[2024-05-24] MEDS ORDERED: Prochlorperazine Edisylate 10 mg Vial IV PRN (14:00)
[2024-05-24] MEDS ORDERED: NS 1,000 ML IV ONE (14:52)
[2024-05-24] MEDS ORDERED: Nitroglycerin 1 INCH/GM PKT TOP SCH (15:55)
[2024-05-24] MEDS ORDERED: Pantoprazole Sodium 40 MG Tab PO SCH (16:30)
--- NOTE | 2024-05-24 18:33 | NUR ---
SHIFT SUMMARY: - LETHARGIC UPON ADMISSION, AROUSABLE TO VERBAL STIMULI - VERY ANXIOUS AND SCATTERED WHILE AWAKE - COMPLAINING OF HIP PAIN ON ARRIVAL TO PCU BUT IS UNABLE TO VERBALIZE QUANTITY OR QUALITY OF PAIN BEFORE FALLING BACK ASLEEP. - HTN NOTED, LAST BP - PUREWICK IN PLACE - HEPARIN GTT - ELEVATED TROPONINS - NPO @ MIDNIGHT - CARDIOLOGY TO SEE PATIENT IN AM - ENDORSES NAUSEA. NO VOMITING OR DIARRHEA SINCE ARRIVAL FROM ED
--- NOTE | 2024-05-24 19:45 | NUR ---
ATTEMPTED TO NOTIFY RESIDENT OF HEPARIN GTT RUNNING ON PT WITH C/O BLACK STOOLS. NO ANSWER AT THIS TIME. INSPECTOR MACHINED PARTS NOTIFIED.
[2024-05-24] MEDS ORDERED: TraZODone HCl 100 MG Tab PO SCH (21:00)
[2024-05-24] MEDS ORDERED: Pramipexole DI-HCL 0.25 MG Tab PO SCH (21:00)
[2024-05-24] MEDS ORDERED: Divalproex Sodium 500 MG TABCR PO SCH (21:00)
[2024-05-24 21:14] LABS: Hematocrit 26.7 % (33.0-51.0); Hemoglobin 8.4 g/dL (11.5-16.0)
[2024-05-24 21:25] LABS: Base Excess Venous -8.8 mmol/L; Bicarbonate Venous 17.2 mmol/L (24.0-30.0); PCO2 Venous 43.7 mmHg (38-42); pH Blood Venous 7.24 (7.34-7.37)
--- NOTE | 2024-05-24 21:43 | NUR ---
ATTEMPTED TO NOTIFY RESIDENT OF HEMAGLOBIN TREND AND CRITICAL PH, NO ANSWER AT THIS TIME.
--- NOTE | 2024-05-24 22:37 | NUR ---
ATTEMPTED TO NOTIFY RESIDENT, NO ANSWER.
[2024-05-25] VITALS (18 sets, daily range): BP systolic 58–181; BP diastolic 37–106
--- NOTE | 2024-05-25 00:14 | NUR ---
PT'S MAP 44, NITRO PAST REMOVED, PT PLACED IN [place], RESIDENT NOTIFIED. REPEATED VITALS.
[2024-05-25 00:28] LABS: Hematocrit 27.1 % (33.0-51.0); Hemoglobin 8.4 g/dL (11.5-16.0)
[2024-05-25 04:10] LABS: Base Excess Venous -7.9 mmol/L; Bicarbonate Venous 18.4 mmol/L (24.0-30.0); PCO2 Venous 38.6 mmHg (38-42); pH Blood Venous 7.29 (7.34-7.37)
[2024-05-25 04:16] LABS: BASOPHILS ABSOLUTE AUTO 0.04 K/mm3 (0.00-0.23); BASOPHILS PERCENT AUTO 1 % (0-2); EOSINOPHILS ABSOLUTE AUTO 0.15 K/mm3 (0.00-0.68); EOSINOPHILS PERCENT AUTO 3 % (0-6); Hematocrit 26.2 % (33.0-51.0); Hemoglobin 8.2 g/dL (11.5-16.0); IMMATURE GRAN ABSOLUTE AUTO 0.02 K/mm3 (0.00-0.10); IMMATURE GRAN PERCENT AUTO 0 % (0-1); LYMPHOCYTES ABSOLUTE AUTO 1.18 K/mm3 (0.84-5.20); LYMPHOCYTES PERCENT AUTO 22 % (21-46); MONOCYTES ABSOLUTE AUTO 0.41 K/mm3 (0.16-1.47); MONOCYTES PERCENT AUTO 8 % (4-13); Mean Corpuscular HGB 29.3 pg (26.0-34.0); Mean Corpuscular HGB Conc 31.3 g/dL (31.5-36.5); Mean Corpuscular Volume 94 fL (80-100); Mean Platelet Volume 10.2 fL (9.1-12.4); NEUTROPHILS ABSOLUTE AUTO 3.51 K/mm3 (1.96-9.15); NEUTROPHILS PERCENT AUTO 66 % (41-73); Platelet Count 264 K/mm3 (150-400); RDW Coefficient Variation 14.5 % (11.7-14.2); RDW Standard Deviation 49.5 fL (35.1-46.3); White Blood Cell Count 5.31 K/mm3 (4.00-11.30)
[2024-05-25 04:35] LABS: Albumin, Blood 2.7 g/dL (3.4-5.0); Albumin/Globulin Ratio 1.2 (0.8-1.8); Bilirubin, Total 0.3 mg/dL (0.1-1.0); Bun/Creatinine Ratio 12.2 (12.0-20.0); Calcium, Blood 7.6 mg/dL (8.5-10.1); Creatinine, Blood 1.47 mg/dL (0.40-1.00); Globulin, Blood 2.3 g/dL (2.2-4.0)
[2024-05-25] MEDS ORDERED: Dose Adjust by Pharmacy XX STA (04:48)
[2024-05-25] MEDS ORDERED: Potassium Chl 20MEQ/Water100ML 100 ML IV ONE (05:45)
[2024-05-25 06:08] LABS: Magnesium, Blood 1.8 mg/dL (1.6-2.4)
--- NOTE | 2024-05-25 06:40 | NUR ---
SHIFT SUMMARY NEURO: WNL, AT BASELINE WEAKNESS D/T HX OF MS. DECREASED MENTATION NOTED AFTER NITRO ADMINISTRATION ACCOMPANIED WITH LOW BLOOD PRESSURES. LUNGS: PERIODS OF SLEEP APNEA, OTHERWISE WNL CARDIAC: HEPARIN GTT RUNNING. PT HAS INTERMITTENT JAW PAIN. TROPONINS PEAKED. BLE +2 EDEMA. SEVERE HYPOTENSION WITH NITRO PASTE ADMINISTRATION- PROVIDER AWARE. DAMATI TO BEDSIDE, PCI CONSENT OBTAINED AND PLACED IN CHART. GI/: PT REPORTS DARK STOOLS A FEW DAYS AGO AND CONSTAND ABD PAIN. HGB TRENDED THIS SHIFT. PT HAS BEEN NPO SINCE MIDNIGHT. PUREWICK IN PLACE, DRAINING YELLOW URINE. SKIN: SCATTERED BRUISING
[2024-05-25] MEDS ORDERED: OMEP20ER PO (07:27)
[2024-05-25] MEDS ORDERED: BACLOFEN10 M4 PO (07:31)
[2024-05-25] MEDS ORDERED: TIZANIDINE HCL213 PO (07:35)
[2024-05-25] MEDS ORDERED: ONDANSETRON ODT16 MG PO (07:44)
[2024-05-25] MEDS ORDERED: ZONI100 PO (07:45)
[2024-05-25] MEDS ORDERED: LOSARTAN POTASS25 M2 PO (07:48)
[2024-05-25] MEDS ORDERED: DOXEPIN HCL3 MG PO (07:50)
--- NOTE | 2024-05-25 08:15 | NUR ---
AM ASSESSMENT: Pt resting in bed with at bedside. States that she is having some Abd pain, describes it as a burning pain as well as some jaw pain that she describes as an ache. Will notify physician and treat per orders. LS clear. HR reg. Bt positive. Pulses palp. +2 edema in BLE. States that this swelling is a lot worse then normal for her. Pt speach is slow, states that he feels it is slurred. Pt states this is because her mouth is dry. No facial droop, smile equal. Pupiles equal and reactive. Pt is oriented x 4. Pt order for NPO being changed and patient given some ice chips and water. Speech seems to improve. Call light in reach. Will monitor.
[2024-05-25] MEDS ORDERED: HYDROmorphone HCl/Pf 1MG SYR IV PRN (08:25)
[2024-05-25] MEDS ORDERED: Lactated Ringer's 1,000 ML IV SCH (08:25)
[2024-05-25] MEDS ORDERED: LevETIRAcetam 500 MG Tab PO SCH (09:00)
[2024-05-25] MEDS ORDERED: Calcitriol 0.25 MCG Cap PO SCH (09:00)
[2024-05-25] MEDS ORDERED: Aspirin 81 MG TabEC PO SCH (09:00)
[2024-05-25] MEDS ORDERED: Potassium Chl 20MEQ/Water100ML 100 ML IV SCH (09:00)
[2024-05-25] MEDS ORDERED: Metoprolol Succinate 25 MG TABCR PO SCH (09:00)
[2024-05-25] MEDS ORDERED: Sodium Bicarb 8.4% Inj 75 MEQ in Sodium Chloride 0.45% 1,000 ML IV SCH (12:30)
--- NOTE | 2024-05-25 18:20 | NUR ---
SHIFT SUMMARY: Pt resting in bed. Has had c/o jaw and abd pain on and off throughout the shift. Medicated per orders. BP has improved since this AM. HR has remained in NSR, no changes on tele. Plan for stress test tomorrow. NPO after midnight. Pt denies questions and verbalized understanding of this. WIll report to night RN.
[2024-05-26 03:06] VITALS: BP 101/64
[2024-05-26 04:31] LABS: Base Excess Venous -1.9 mmol/L; Bicarbonate Venous 22.8 mmol/L (24.0-30.0); PCO2 Venous 38.8 mmHg (38-42); pH Blood Venous 7.38 (7.34-7.37)
[2024-05-26 04:49] LABS: BASOPHILS ABSOLUTE AUTO 0.03 K/mm3 (0.00-0.23); BASOPHILS PERCENT AUTO 0 % (0-2); EOSINOPHILS ABSOLUTE AUTO 0.32 K/mm3 (0.00-0.68); EOSINOPHILS PERCENT AUTO 4 % (0-6); Hematocrit 26.9 % (33.0-51.0); Hemoglobin 8.6 g/dL (11.5-16.0); IMMATURE GRAN ABSOLUTE AUTO 0.02 K/mm3 (0.00-0.10); IMMATURE GRAN PERCENT AUTO 0 % (0-1); LYMPHOCYTES ABSOLUTE AUTO 1.22 K/mm3 (0.84-5.20); LYMPHOCYTES PERCENT AUTO 16 % (21-46); MONOCYTES ABSOLUTE AUTO 0.59 K/mm3 (0.16-1.47); MONOCYTES PERCENT AUTO 8 % (4-13); Mean Corpuscular HGB 29.4 pg (26.0-34.0); Mean Corpuscular Volume 92 fL (80-100); Mean Platelet Volume 10.1 fL (9.1-12.4); NEUTROPHILS ABSOLUTE AUTO 5.28 K/mm3 (1.96-9.15); NEUTROPHILS PERCENT AUTO 71 % (41-73); Platelet Count 276 K/mm3 (150-400); RDW Coefficient Variation 14.6 % (11.7-14.2); RDW Standard Deviation 49.5 fL (35.1-46.3); Red Blood Cell Count 2.93 M/mm3 (3.80-5.20); White Blood Cell Count 7.46 K/mm3 (4.00-11.30)
--- NOTE | 2024-05-26 05:12 | NUR ---
SHIFT SUMMARY PT A&O X4, ABLE TO MAKE NEEDS KNOWN. VSS, AFEBRILE, SPO2 >93% ON RA WHILE AWAKE, PT DESAT TO 88% WHILE ASLEEP SO 1-3L NC WAS APPLIED TO KEEP SPO2 >92%. PT NPO AT MIDNIGHT FOR STRESS TEST ON 05/26. PT HAD SOME COMPLAINT OF ABDOMINAL, NECK, AND JAW PAIN, MEDICATED PER EMAR. PT DENIES SOB OR CP/ PRESSURE. PW IN PLACE. NO ACUTE EVENTS THIS SHIFT. PT IS RESTING QUIETLY IN BED, BREATHING IS EVEN AND UNLABORED, CALL LIGHT IN REACH.
[2024-05-26 05:19] LABS: Bun/Creatinine Ratio 16.3 (12.0-20.0); Creatinine, Blood 1.41 mg/dL (0.40-1.00); Potassium, Blood 4.1 mmol/L (3.5-5.5)
[2024-05-26 07:20] VITALS: BP 148/97
[2024-05-26] MEDS ORDERED: Losartan Potassium 25 MG Tab PO SCH (09:00)
[2024-05-26] MEDS ORDERED: Regadenoson 0.4 MG/5 ML SYRINGE ONE (13:29)
[2024-05-26] MEDS ORDERED: Caffeine Citrated 60 MG/3 ML Vial ONE (13:30)
[2024-05-26 16:47] VITALS: BP 152/103
--- NOTE | 2024-05-26 18:32 | NUR ---
Summary. Assumed care at approximately 1430. Physical exam agrees with previous assessment. Pt alert and oriented, rested in bed this afternoon. Taken to complete cardiac stress test with nuclear medicine at 1500 this afternoon. Results reported to Dr. Valdovinos. Pt remains painful, PRN pain meds given. No acute events this afternoon. See chart for further details.
[2024-05-26 19:56] VITALS: BP 156/96
[2024-05-27 00:09] VITALS: BP 141/88
[2024-05-27 04:07] VITALS: BP 136/82
[2024-05-27 04:36] LABS: Base Excess Venous 3.1 mmol/L; Bicarbonate Venous 26.9 mmol/L (24.0-30.0); pH Blood Venous 7.46 (7.34-7.37)
[2024-05-27 05:04] LABS: Bun/Creatinine Ratio 20.7 (12.0-20.0); Calcium, Blood 8.3 mg/dL (8.5-10.1); Creatinine, Blood 1.4 mg/dL (0.40-1.00); Potassium, Blood 4.5 mmol/L (3.5-5.5)
--- NOTE | 2024-05-27 06:21 | NUR ---
SHIFT SUMMARY ASSUMED CARE OF PT AT 1900. PT A&O4, COOPERATIVE IN CARE AND ABLE TO EXPRESS SELF APPROPRIATELY. VSS AND ONLY COMPLAINED OF JAW AND ABDOMINAL PAIN THAT PT STATES IS FROM A GASTRIC ULCER OTHERWISE NO ACUTE EVENTS OVERNIGHT. PT'S BED IN LOWEST POSITION AND CALL LIGHT WITHIN REACH.
[2024-05-27 07:15] VITALS: BP 146/83
[2024-05-27] MEDS ORDERED: HYDROcodone 5-APAP 325 TAB PO PRN (10:05)
[2024-05-27 12:22] VITALS: BP 145/96
--- NOTE | 2024-05-27 12:41 | NUR ---
ASSUMPTION OF CARE PT ALERT AND ORIENTED TO ALL, SHE IS CALM, COOPERATIVE TO CARE, SHE IS ABLE TO EXPRESS NEEDS. SCATTERED BRUISING T/O. SINUS RHYTHM, 80'S, SBP 140'S, DENIES CP/PRESSURE, NUMB/TINGLING OF THE BLE. L/S CLEAR T/O, 02 >92% ON RA. PT REPORTS PAIN/NUMB/TINGLING OF BLE, ELEVATED WITH PILLOWS, AND PAIN OF STOMACH, MEDICATED PER EMAR. PROVIDER TO BESIDE TO DISCUSS PLAN OF CARE WITH PT. STATUS CHANGE TO MED NO TELE. PT/OT TO WORK WITH PT TO REGAIN BASELINE STRENGTH, AND DISCHARGE TO SNF FOR REHAB. CHANGED IV PAIN MEDS TO PO MEDS. PT AGREEABLE TO PLAN, NO QUESTIONS OR CONCERNS AT THIS TIME. WILL MONITOR PT.
[2024-05-27 16:48] VITALS: BP 155/97
--- NOTE | 2024-05-27 17:30 | NUR ---
SHIFT SUMMARY PT ALERT AND ORIENTED TO ALL. HR IN THE 80'S, SBP STABLE, O2 >92% ON RA. PT MEDICAL STATUS WITH NO TELE. PT TO STAY AND WORK WITH PT/OT AND THEN DISCHARGE TO SNF FOR REHAB. PT AGREEABLE TO PLAN. NO ACUTE CHANGES T/O SHIFT. SHE DENIES QUESTIONS OR CONCERNS AT THIS TIME. WILL CONTINUE TO MONIITOR AND REPORT TO TAP OUT OPERATOR RN.
[2024-05-27 22:00] VITALS: BP 138/95
[2024-05-28 04:11] LABS: Base Excess Venous 3.8 mmol/L; Bicarbonate Venous 27.9 mmol/L (24.0-30.0); PCO2 Venous 30.7 mmHg (38-42); pH Blood Venous 7.54 (7.34-7.37)
--- NOTE | 2024-05-28 04:38 | NUR ---
SHIFT SUMMARY 73 YR F ADMITTED ON 05/24/24. DNR. NO ACUTE CHANGES THIS SHIFT. PT IS A&O X 4 AND PLEASANT AND COOPERATIVE WITH CARE. PER LAB, PT HAD A CRITICAL PH LEVEL OF 7.54 @ 0400. RESIDENT NOTIFIED. PT HAS SLEPT FOR MOST OF THIS SHIFT. PLAN IS FOR DISCHARGE TO SNF FOR REHAB.
[2024-05-28 04:47] VITALS: BP 145/90
[2024-05-28 04:57] LABS: BASOPHILS ABSOLUTE AUTO 0.04 K/mm3 (0.00-0.23); BASOPHILS PERCENT AUTO 1 % (0-2); EOSINOPHILS ABSOLUTE AUTO 0.29 K/mm3 (0.00-0.68); EOSINOPHILS PERCENT AUTO 6 % (0-6); Hematocrit 27.1 % (33.0-51.0); Hemoglobin 8.7 g/dL (11.5-16.0); IMMATURE GRAN ABSOLUTE AUTO 0.02 K/mm3 (0.00-0.10); IMMATURE GRAN PERCENT AUTO 0 % (0-1); LYMPHOCYTES ABSOLUTE AUTO 1.31 K/mm3 (0.84-5.20); LYMPHOCYTES PERCENT AUTO 26 % (21-46); MONOCYTES ABSOLUTE AUTO 0.51 K/mm3 (0.16-1.47); MONOCYTES PERCENT AUTO 10 % (4-13); Mean Corpuscular HGB 29.8 pg (26.0-34.0); Mean Corpuscular HGB Conc 32.1 g/dL (31.5-36.5); Mean Corpuscular Volume 93 fL (80-100); Mean Platelet Volume 10.7 fL (9.1-12.4); NEUTROPHILS ABSOLUTE AUTO 2.81 K/mm3 (1.96-9.15); NEUTROPHILS PERCENT AUTO 57 % (41-73); Platelet Count 270 K/mm3 (150-400); RDW Coefficient Variation 14.4 % (11.7-14.2); RDW Standard Deviation 48.7 fL (35.1-46.3); Red Blood Cell Count 2.92 M/mm3 (3.80-5.20); White Blood Cell Count 4.98 K/mm3 (4.00-11.30)
[2024-05-28 05:24] LABS: Bun/Creatinine Ratio 23.8 (12.0-20.0); Calcium, Blood 8.4 mg/dL (8.5-10.1); Creatinine, Blood 1.43 mg/dL (0.40-1.00); Potassium, Blood 4.2 mmol/L (3.5-5.5)
--- NOTE | 2024-05-28 05:45 | NUR ---
TRANSFER FROM PCU TO SURGICAL FLOOR PT ARRIVED FROM PCU VIA HOSPITAL BED AT APPROX 0445. VBG PH 7.54, PROVIDER NOTIFIED PRIOR TO UNIT TRANSFER BY COMMUNITY WORKER. PT A/OX4 WITH VSS. DENIES PAIN/DISCOMFORT, SOB, CP, N/V. LUNG SOUNDS CLEAR. PT CURRENTLY UP IN BED DRINKING HOT TEA WITH CALL LIGHT IN REACH. PLAN TO WORK WITH THERAPY TODAY AND POSSIBLE D/C TO SNF WHEN ABLE. WILL CONTINUE TO CARE FOR PATIENT UNTIL SHIFT CHANGE AND REPORT GIVEN TO ONCOMING RN.
[2024-05-28 07:05] VITALS: BP 119/81
[2024-05-28 13:54] LABS: Percent Saturation 8.6 % (15.0-50.0)
[2024-05-28 14:24] VITALS: BP 105/73
[2024-05-28 19:21] VITALS: BP 114/80
[2024-05-28] MEDS ORDERED: TraZODone HCl 50 MG Tab PO SCH (21:00)
--- NOTE | 2024-05-29 04:42 | NUR ---
SHIFT SUMMARY PT WITH ABD PAIN S/T NSTEMI. PT REPORTS, "I AM FEELING SO MUCH BETTER THAN BEFORE". PAIN MANAGED UTILIZING NPIS AND PER EMAR. SBA USING FWW TO BATHROOM. A&OX4. APPROPRIATE & PLEASANT. PT ABLE TO REST DURING SHIFT. PT VOICED UNDERSTANDING OF PLAN OF CARE. DENIES QUESTIONS/CONCERNS AT THIS TIME.
[2024-05-29 05:13] LABS: Bun/Creatinine Ratio 26.1 (12.0-20.0); Calcium, Blood 8.5 mg/dL (8.5-10.1); Creatinine, Blood 1.65 mg/dL (0.40-1.00)
[2024-05-29 07:06] VITALS: BP 122/82
--- NOTE | 2024-05-29 11:02 | NUR ---
PHYS THERAPY IN TO SEE PT.
[2024-05-29] MEDS ORDERED: Iron Dextran 50 MG / ML 2ML Vial IV ONE (12:00)
[2024-05-29] MEDS ORDERED: PANT40 PO (12:40)
[2024-05-29] MEDS ORDERED: Iron Dextran 975 MG in NS 250 ML IV ONE (13:30)
--- NOTE | 2024-05-29 14:27 | NUR ---
pt tolerated infed test dose w/o difficulty.
[2024-05-29] MEDS ORDERED: FOLIC ACID0.8 MG PO (16:01)
[2024-05-29] MEDS ORDERED: LEVE500 PO (16:01)
[2024-05-29 16:11] VITALS: BP 169/98
[2024-05-29 16:12] VITALS: BP 154/92
--- NOTE | 2024-05-29 16:54 | NUR ---
DISCHARGED REVIEWED DC INSTRUCTIONS W/PT; VERBALIZED UNDERSTANDING. PRESCRIPTIONS FAXED TO [facility] PER PT REQUEST. PT VSS. PT LEFT UNIT IN WC W/POSSESSIONS AND DC PAPERWORK IN HAND; MET SPOUSE OUTSIDE.
== END 2024-05-29 16:50 | disposition home or self-care (01) | DRG 280 ==
LOC: ER 06:52 → PCU 13:36 → SURS 05-28 05:12
PROVIDERS: Family Medicine; Nurse Practitioner Acute Care; Student in an Organized Health Care Education/Training Program; ADMIT Internal Medicine
DX: I21.4 Non-ST elevation (NSTEMI) myocardial infarction (principal); G92.8 Other toxic encephalopathy; E87.20 Acidosis, unspecified; I47.10 Supraventricular tachycardia, unspecified; E87.3 Alkalosis; N39.0 Urinary tract infection, site not specified; Z66 Do not resuscitate; G35 Multiple sclerosis; G70.00 Myasthenia gravis without (acute) exacerbation; I12.9 Hypertensive chronic kidney disease with stage 1 through stage 4 chronic kidney disease, or unspecified chronic kidney disease; E87.6 Hypokalemia; E03.9 Hypothyroidism, unspecified; E87.5 Hyperkalemia; R10.9 Unspecified abdominal pain; G40.909 Epilepsy, unspecified, not intractable, without status epilepticus; D63.1 Anemia in chronic kidney disease; N18.32 Chronic kidney disease, stage 3b; Z90.710 Acquired absence of both cervix and uterus; Z90.49 Acquired absence of other specified parts of digestive tract; Z98.890 Other specified postprocedural states; Z98.84 Bariatric surgery status; Z79.899 Other long term (current) drug therapy; Z87.19 Personal history of other diseases of the digestive system; Z86.718 Personal history of other venous thrombosis and embolism
CPT/HCPCS: 36415; 51798; 74177; 78452; 80048; 80053; 80320; 82010; 82272; 82607; 82728; 82746; 82803; 83540; 83550; 83605; 83690; 83735; 83930; 83970; 84100; 84439; 84443; 84484; 85014; 85018; 85025; 85520; 85610; 85730; 86850; 86900; 86901; 87086; 93005; 93010; 93017; 96374-59; 96375; 97110; 97116; 97162; 97165; 97530; 99285-25; A9270; A9500; G0480; J0706; J0780; J1170; J1644; J1750; J1885; J2270; J2405; J2470; J2785; J3010; J3480; J7030; J7050; J7120; Q9967

== ENCOUNTER → 2024-08-21 | Outpatient (CLI) | payer BC ==
[~2024-08-21] MED LIST changes: +BACLOFEN10 M4 PO; +DOXEPIN HCL3 MG PO; +FOLIC ACID0.8 MG PO; +LEVE500 PO; +LOSARTAN POTASS25 M2 PO; +OMEP20ER PO; +ONDANSETRON ODT16 MG PO; +PANT40 PO; +TIZANIDINE HCL213 PO; +ZONI100 PO
[2024-08-24 16:25] LABS: FAT, FECAL - NEUTRAL Normal (Normal); FAT, FECAL - SPLIT Increased (Normal)
[2024-08-25 11:12] LABS: PANCREATIC ELASTASE,FECAL 312 ug/g (>=100)
== END | disposition home or self-care (01) ==
LOC: LAB SHORT 21:45 → LAB 21:45
PROVIDERS: Physician Assistant
DX: E04.2 Nontoxic multinodular goiter (principal)
CPT/HCPCS: 82653; 82705

== ENCOUNTER → 2024-09-08 | Outpatient (CLI) | payer MEDICARE, BC | END | disposition home or self-care (01) | LOC: LAB 11:59 → LAB SHORT 11:59 | PROVIDERS: Physician Assistant | DX: R19.7 Diarrhea, unspecified (principal) | CPT/HCPCS: 82710 ==

== ENCOUNTER 2024-10-10 09:34 | Emergency (ER) | payer MEDICARE, BC ==
[~2024-10-10] VITALS: Ht 170.2 cm; Wt 54.4 kg
[2024-10-10 10:19] LABS: BASOPHILS ABSOLUTE AUTO 0.11 K/mm3 (0.00-0.23); BASOPHILS PERCENT AUTO 2 % (0-2); EOSINOPHILS ABSOLUTE AUTO 0.18 K/mm3 (0.00-0.68); EOSINOPHILS PERCENT AUTO 3 % (0-6); Hematocrit 34.5 % (33.0-51.0); IMMATURE GRAN ABSOLUTE AUTO 0.01 K/mm3 (0.00-0.10); IMMATURE GRAN PERCENT AUTO 0 % (0-1); LYMPHOCYTES PERCENT AUTO 22 % (21-46); MONOCYTES ABSOLUTE AUTO 0.62 K/mm3 (0.16-1.47); MONOCYTES PERCENT AUTO 11 % (4-13); Mean Corpuscular HGB 30.7 pg (26.0-34.0); Mean Corpuscular HGB Conc 31.9 g/dL (31.5-36.5); Mean Corpuscular Volume 96 fL (80-100); Mean Platelet Volume 9.7 fL (9.1-12.4); NEUTROPHILS ABSOLUTE AUTO 3.34 K/mm3 (1.96-9.15); NEUTROPHILS PERCENT AUTO 61 % (41-73); Platelet Count 306 K/mm3 (150-400); RDW Coefficient Variation 14.1 % (11.7-14.2); RDW Standard Deviation 49.4 fL (35.1-46.3); Red Blood Cell Count 3.58 M/mm3 (3.80-5.20); White Blood Cell Count 5.46 K/mm3 (4.00-11.30)
[2024-10-10 10:35] LABS: Albumin/Globulin Ratio 1.2 (0.8-1.8); Bilirubin, Total 0.5 mg/dL (0.1-1.0); Bun/Creatinine Ratio 14.9 (12.0-20.0); Calcium, Blood 8.7 mg/dL (8.5-10.1); Creatinine, Blood 1.01 mg/dL (0.40-1.00); Globulin, Blood 3.4 g/dL (2.2-4.0); Potassium, Blood 4.5 mmol/L (3.5-5.5); Total Protein, Blood 7.4 g/dL (6.4-8.2)
[2024-10-10] MEDS ORDERED: HYDROcodone 5-APAP 325 TAB PO ONE (11:25)
[2024-10-10] MEDS ORDERED: HYDROCODONE-AC1 EA10 PO (11:27)
[2024-10-10 11:30] VITALS: BP 160/98
== END 2024-10-10 11:55 | disposition home or self-care (01) ==
LOC: ER 09:34
PROVIDERS: Emergency Medicine
DX: R07.89 Other chest pain (principal); I12.9 Hypertensive chronic kidney disease with stage 1 through stage 4 chronic kidney disease, or unspecified chronic kidney disease; N18.30 Chronic kidney disease, stage 3 unspecified; I25.2 Old myocardial infarction; G40.909 Epilepsy, unspecified, not intractable, without status epilepticus; Z79.899 Other long term (current) drug therapy; Z87.891 Personal history of nicotine dependence
CPT/HCPCS: 71046; 80053; 83880; 84484; 85025; 93005; 93010; 99285-25; A9270

== ENCOUNTER → 2024-10-18 | Outpatient (CLI) | payer MEDICARE, BC ==
[~2024-10-18] MED LIST changes: +HYDROCODONE-AC1 EA10 PO
[2024-10-20 16:21] LABS: GIARDIA ANTIGEN BY EIA Negative (Negative)
[2024-10-20 16:22] LABS: CRYPTOSPORIDIUM ANTIGEN BY EIA Negative (Negative)
[2024-10-25 17:56] LABS: OVA AND PARASITE,FECAL INTERP Negative (Negative)
== END ==
LOC: LAB SHORT 13:40 → LAB 13:40
PROVIDERS: Physician Assistant
DX: R19.7 Diarrhea, unspecified (principal); R63.4 Abnormal weight loss
CPT/HCPCS: 87015; 87045; 87046; 87081; 87177; 87205; 87209; 87328; 87329; 87899

== ENCOUNTER → 2024-11-06 | Outpatient (CLI) | payer MEDICARE, BC ==
[2024-11-06 15:12] LABS: Appearance, Urine Clear (Clear); Bilirubin, Urine Neg (Neg); Blood, Urine Neg (Neg); Color, Urine Amber (P-Yellow); Glucose Qualitative, Urine Neg (Neg); Ketones, Urine Neg (Neg); Leukocyte Esterase, Urine 1+ (Neg); Nitrite, Urine Pos (Neg); Protein, Urine 2+ (Neg); Urobilinogen, Urine NORM (Normal)
[2024-11-06 15:30] LABS: Bacteria Many /hpf; Red Blood Cells, Urine 0-2 /hpf (0-2); Squamous Epithelial Cells Few /hpf (Few)
== END | disposition home or self-care (01) ==
LOC: LAB 11:00 → LAB SHORT 11:00
PROVIDERS: Hospitalist
DX: N18.31 Chronic kidney disease, stage 3a (principal); R39.9 Unspecified symptoms and signs involving the genitourinary system
CPT/HCPCS: 81001; 87077; 87086; 87186

== ENCOUNTER → 2024-11-21 | Outpatient (CLI) | payer MEDICARE, BC ==
[~2024-11-21] MED LIST changes: +ALPR1 PO; +AUBAGIO14 MG PO; +CREON DR 12,001 EACH PO; +FURO40 PO; +LOPE2C PO; +NUMBCREAM38 GM TOP; +ONDA4ODT MM; +POTA10T PO; +RIFA550T2 PO; +TIZA4 PO; +VITAMIN D5000 UNIT PO
[2024-11-21 13:46] LABS: Campylobacter Sp Not Detected (NOT DETECT); Cryptosporidium Not Detected (NOT DETECT); E. Coli O157 Not Detected (NOT DETECT); Enteroaggregative E. coli-EAEC Not Detected (NOT DETECT); Enteropathogenic E. coli-EPEC Not Detected (NOT DETECT); Enterotoxigenic E. coli-ETEC Not Detected (NOT DETECT); Plesiomonas Shigelloides Not Detected (NOT DETECT); Salmonella Sp Not Detected (NOT DETECT); Shiga Toxin-prod E. coli-STEC Not Detected (NOT DETECT); Shigella/Enteroin E. coli-EIEC Not Detected (NOT DETECT); Vibrio Cholerae Not Detected (NOT DETECT); Vibrio Sp Not Detected (NOT DETECT); Yersinia Enterocolitica Not Detected (NOT DETECT)
[2024-11-21 13:47] LABS: Adenovirus F 40/41 Not Detected (NOT DETECT); Astrovirus Not Detected (NOT DETECT); Cyclospora Cayetanensis Not Detected (NOT DETECT); Entamoeba Histolytica Not Detected (NOT DETECT); Giardia Lamblia Not Detected (NOT DETECT); Norovirus GI/GII Not Detected (NOT DETECT); Rotavirus A Not Detected (NOT DETECT); Sapovirus Not Detected (NOT DETECT)
[2024-11-23 14:38] LABS: FAT, FECAL - NEUTRAL Normal (Normal); FAT, FECAL - SPLIT Increased (Normal)
== END | disposition home or self-care (01) ==
LOC: LAB SHORT 00:30 → LAB 00:30
PROVIDERS: Nurse Practitioner Family
DX: K86.89 Other specified diseases of pancreas (principal); R19.7 Diarrhea, unspecified; R63.4 Abnormal weight loss
CPT/HCPCS: 82705; 87507

== ENCOUNTER 2024-12-14 05:45 | Day surgery (SDC) | payer MEDICARE, BC ==
[~2024-12-14] VITALS: Ht 170.2 cm; Wt 49.7 kg
[2024-12-14] VITALS (14 sets, daily range): BP systolic 99–135; BP diastolic 65–86
[2024-12-14] MEDS ORDERED: ZENPEP DR 25,01 EAC1 PO (06:32)
[2024-12-14] MEDS ORDERED: CeFAZolin Sodium 2,000 MG in NS 100 ML IV SCH (06:55)
[2024-12-14] MEDS ORDERED: Lactated Ringer's 1,000 ML IV SCH (06:55)
[2024-12-14] MEDS ORDERED: Bupivacaine 0.5% HCl 5 MG/ML 30MLVIAL ONE (07:11)
[2024-12-14] MEDS ORDERED: Etomidate 2MG / ML 10ML Vial ONE (07:24)
[2024-12-14] MEDS ORDERED: FentaNYL Citrate 50 MCG/ML 2 ML Injection ONE ×2 (07:27→07:34)
[2024-12-14] MEDS ORDERED: propofoL 20 ML IV ONE (07:34)
[2024-12-14] MEDS ORDERED: Ondansetron HCl 2 MG / ML 2ML Vial ONE (07:43)
[2024-12-14] MEDS ORDERED: Dexamethasone Sod Phos 10 MG/ML 1ML VIAL ONE (07:43)
[2024-12-14] MEDS ORDERED: FentaNYL Citrate 50 MCG/ML 2 ML Injection IV PRN ×2 (07:50→07:55)
[2024-12-14] MEDS ORDERED: HYDROmorphone HCl/Pf 1MG SYR IV PRN (07:50)
[2024-12-14] MEDS ORDERED: Morphine Sulfate 4 MG/1 ML Injection IV PRN (07:50)
[2024-12-14] MEDS ORDERED: Ondansetron HCl 2 MG / ML 2ML Vial IV PRN (07:55)
[2024-12-14] MEDS ORDERED: Albuterol 2.5 MG/3 ML VIAL INH PRN (07:55)
[2024-12-14] MEDS ORDERED: Sugammadex Sodium 200 MG/2ML SDV (100 MG/ML) ONE (08:46)
--- NOTE | 2024-12-14 09:30 | NUR ---
PATIENT ARRIVED TO ROOM 210 FROM PACU, REPORT RECEIVED FROM DONAL MANE. PATIENT IS A/OX4 AND DENIES ANY PAIN OR NAUSEA AT THIS TIME. INCISION TO LLQ ABDOMEN WELL APPROXIMATED AND CLOSED WITH TOPICAL ADHESIVE. PATIENT ORIENTED TO ROOM AND USE OF CALL LIGHT. SCD'S APPLIED AND SAFETY DISCUSSED.
[2024-12-14] MEDS ORDERED: OxyCODONE 5 mg/Acetamin 325 mg TABLET PO PRN (10:10)
[2024-12-14] MEDS ORDERED: TiZANidine HCl 4 MG Tab PO PRN (10:30)
[2024-12-14] MEDS ORDERED: Ondansetron 4 MG SoluTab MM PRN (10:30)
[2024-12-14] MEDS ORDERED: TraZODone HCl 50 MG Tab PO PRN (10:30)
[2024-12-14] MEDS ORDERED: Loperamide HCl 2 MG Cap PO PRN (10:30)
[2024-12-14] MEDS ORDERED: TraMADol HCl 50 MG Tab PO PRN (10:35)
[2024-12-14] MEDS ORDERED: Midazolam HCl 1MG / ML 2ML Vial ONE (10:35)
[2024-12-14] MEDS ORDERED: Acetaminophen 500 MG Tab PO PRN (10:35)
[2024-12-14] MEDS ORDERED: [UNRECOGNIZED DRUG - REMARK] PO SCH ×2 (12:30→13:00)
--- NOTE | 2024-12-14 16:37 | NUR ---
PATIENT A/OX4, UP WITH FWW AND SBA TO RESTROOM. INGUINAL HERNIA REPAIR THIS AM WITH DR PEDROZA, LLQ INCISION REMAINS C/D/I. VSS, ON RA. PATIENT TOLERATING REGULAR DIET. IMMODIUM GIVEN TO TREAT CHRONIC DIARRHEA, NO BM TODAY. PERCOCET GIVEN TO TREAT PAIN WITH STATED CONTROL. HEEL PRICKER AT BEDSIDE TO DISCUSS DIET AND SIGNIFICANT WEIGHT LOSS. USES CALL LIGHT APPROPRIATELY FOR ASSISTANCE, ABLE TO MAKE NEEDS KNOWN.
[2024-12-14] MEDS ORDERED: LevETIRAcetam 500 MG Tab PO SCH (21:00)
[2024-12-14] MEDS ORDERED: DiphenhydrAMINE HCL 25 MG Cap PO ONE (23:50)
[2024-12-15 00:19] VITALS: BP 100/71
[2024-12-15 04:10] VITALS: BP 76/58
[2024-12-15 04:31] VITALS: BP 91/54
--- NOTE | 2024-12-15 04:56 | NUR ---
SHIFT SUMMARY AYALA WAS ALERT AND FULLY ORIENED ON ASSESSMENT. PT PAIN MODERATELY WELL CONTROLLED. INCISION SITE C/D/I. SBA TO BR, VOIDING APPROPRIATELY. PULSES PRESENT ALL DISTAL EXTS. PT HYPOTENSIVE THIS MORNING, CONTINUING TO MONITOR. NO OTHER EVENTS TONIGHT.
[2024-12-15 07:42] VITALS: BP 116/84
[2024-12-15] MEDS ORDERED: Cholecalciferol 1000 Unit Tablet (=25MCG) PO SCH (09:00)
[2024-12-15] MEDS ORDERED: Furosemide 40 MG Tab PO SCH (09:00)
[2024-12-15] MEDS ORDERED: Metoprolol Succinate 50 MG TABCR PO SCH (09:00)
[2024-12-15] MEDS ORDERED: Potassium Chloride 10 Meq Tablet SA PO SCH (09:00)
[2024-12-15] MEDS ORDERED: TERIFLUNOMIDE 14 MG TAB PO SCH ×2 (09:00→11:30)
[2024-12-15] MEDS ORDERED: DiphenhydrAMINE HCL 25 MG Cap PO ONE (10:20)
--- NOTE | 2024-12-15 16:32 | NUR ---
DISCHARGE PT DISCHARGED HOME WITH SPOUSE. ALL BELONGINGS WITH PT AND EDUCATION PROVIDED.
[2024-12-16] MEDS ORDERED: Calcitriol 0.25 MCG Cap PO SCH (09:00)
[2024-12-17 10:59] LABS: 5-HIAA URINE - PER VOLUME 1.2 mg/L; 5-HIAA URINE - RATIO TO CRT 6 mg/gCR (0-14); CREATININE, URINE - PER VOLUME 21 mg/dL; HOURS COLLECTED 24 hr; TOTAL VOLUME Not Provided mL
[2024-12-18 09:55] LABS: CHROMOGRANIN IN SERUM 321 ng/mL (0-187)
[2024-12-18 10:01] LABS: GASTRIN 35 pg/mL (0-100)
[2024-12-20 14:46] LABS: SEROTONIN,SERUM 58 ng/mL (50-220)
== END 2024-12-15 16:31 | disposition home or self-care (01) ==
LOC: ORSCMMR 05:45 → ORD 07:30 → ORSCMMR 07:30 → SURS 09:26 → ORSCMMR 09:26 → SURS 13:24 → ORSCMMR 12-15 16:31 → SURS 12-15 16:31
PROVIDERS: Surgery
PROC: 0YU60JZ Supplement Left Inguinal Region with Synthetic Substitute, Open Approach (ICD-10-PCS; principal; 2024-12-14 07:30)
DX: K40.90 Unilateral inguinal hernia, without obstruction or gangrene, not specified as recurrent (principal); I12.9 Hypertensive chronic kidney disease with stage 1 through stage 4 chronic kidney disease, or unspecified chronic kidney disease; N18.9 Chronic kidney disease, unspecified; I25.2 Old myocardial infarction; G47.33 Obstructive sleep apnea (adult) (pediatric); G40.909 Epilepsy, unspecified, not intractable, without status epilepticus; Z79.899 Other long term (current) drug therapy
CPT/HCPCS: 36415; 82941; 83497; 84260; 86316; 94760; 97112; 97161; A9270; C1781; J0690; J1100; J2250; J2405; J2704; J3010; J7120

== ENCOUNTER 2025-02-21 02:24 | Day surgery (SDC) | payer MEDICARE, BC ==
[~2025-02-21 02:24] MED LIST changes: +ZENPEP DR 25,01 EAC1 PO
[2025-02-21 20:28] LABS: Alanine Aminotransfer (ALT/SGP 58 U/L (12-78); Albumin, Blood 2.9 g/dL (3.4-5.0); Albumin/Globulin Ratio 1.1 (0.8-1.8); Anion Gap 11 mmol/L (3-11); Aspartate Aminotrans (AST/SGOT 58 U/L (12-37); Bilirubin, Total 0.5 mg/dL (0.1-1.0); Blood Urea Nitrogen 35 mg/dL (8-24); CO2, Blood 20 mmol/L (21-32); Calcium, Blood 7.4 mg/dL (8.5-10.1); Chloride, Blood 111 mmol/L (98-108); Creatinine, Blood 1.92 mg/dL (0.40-1.00); Globulin, Blood 2.6 g/dL (2.2-4.0); Glucose, Blood 84 mg/dL (70-99); Magnesium, Blood 1.1 mg/dL (1.6-2.4); Phosphorus, Blood 5.2 mg/dL (2.5-4.9); Potassium, Blood 3.3 mmol/L (3.5-5.5); Sodium, Blood 139 mmol/L (136-145); Total Protein, Blood 5.5 g/dL (6.4-8.2); Triglycerides 63 mg/dL (30-160)
--- NOTE | 2025-02-22 13:53 | NUR ---
PICC insertion record and lab results from yesterday faxed to [facility].
== END 2025-02-21 17:45 | disposition home or self-care (01) ==
LOC: ATC 02:24
PROVIDERS: Hospitalist
DX: R63.4 Abnormal weight loss (principal); K86.81 Exocrine pancreatic insufficiency; N18.4 Chronic kidney disease, stage 4 (severe); E87.6 Hypokalemia; E03.9 Hypothyroidism, unspecified; Z68.1 Body mass index [BMI] 19.9 or less, adult; Z87.891 Personal history of nicotine dependence; Z79.82 Long term (current) use of aspirin; Z79.899 Other long term (current) drug therapy; Z91.018 Allergy to other foods; Z91.09 Other allergy status, other than to drugs and biological substances; Z90.49 Acquired absence of other specified parts of digestive tract
CPT/HCPCS: 36569; 80053; 83735; 84100; 84478; C1751

== ENCOUNTER → 2025-02-26 | Outpatient (CLI) | payer MEDICARE, BC ==
[2025-02-26 17:58] LABS: BASOPHILS ABSOLUTE AUTO 0.06 K/mm3 (0.00-0.23); BASOPHILS PERCENT AUTO 1 % (0-2); EOSINOPHILS ABSOLUTE AUTO 0.08 K/mm3 (0.00-0.68); EOSINOPHILS PERCENT AUTO 2 % (0-6); Hematocrit 25.5 % (33.0-51.0); Hemoglobin 8.0 g/dL (11.5-16.0); IMMATURE GRAN ABSOLUTE AUTO 0.02 K/mm3 (0.00-0.10); IMMATURE GRAN PERCENT AUTO 0 % (0-1); LYMPHOCYTES ABSOLUTE AUTO 0.96 K/mm3 (0.84-5.20); LYMPHOCYTES PERCENT AUTO 19 % (21-46); MONOCYTES ABSOLUTE AUTO 0.64 K/mm3 (0.16-1.47); MONOCYTES PERCENT AUTO 13 % (4-13); Mean Corpuscular HGB Conc 31.4 g/dL (31.5-36.5); Mean Corpuscular Volume 97 fL (80-100); NEUTROPHILS ABSOLUTE AUTO 3.18 K/mm3 (1.96-9.15); NEUTROPHILS PERCENT AUTO 64 % (41-73); NRBC ABSOLUTE 0.00 K/mm3 (0.00-0.02); NRBC Auto 0.0 /100 WBC (0.0-0.2); Platelet Count 214 K/mm3 (150-400); RDW Coefficient Variation 14.4 % (11.7-14.2); RDW Standard Deviation 50.7 fL (35.1-46.3)
[2025-02-26 18:51] LABS: Alanine Aminotransfer (ALT/SGP 99 U/L (12-78); Albumin, Blood 2.7 g/dL (3.4-5.0); Albumin/Globulin Ratio 1.1 (0.8-1.8); Anion Gap 8 mmol/L (3-11); Aspartate Aminotrans (AST/SGOT 122 U/L (12-37); Bilirubin, Total 0.3 mg/dL (0.1-1.0); Blood Urea Nitrogen 34 mg/dL (8-24); CO2, Blood 25 mmol/L (21-32); Calcium, Blood 7.4 mg/dL (8.5-10.1); Chloride, Blood 109 mmol/L (98-108); Creatinine, Blood 2.17 mg/dL (0.40-1.00); Globulin, Blood 2.5 g/dL (2.2-4.0); Glucose, Blood 92 mg/dL (70-99); Magnesium, Blood 2.0 mg/dL (1.6-2.4); Phosphorus, Blood 3.0 mg/dL (2.5-4.9); Potassium, Blood 4.5 mmol/L (3.5-5.5); Sodium, Blood 137 mmol/L (136-145); Total Protein, Blood 5.2 g/dL (6.4-8.2); Triglycerides 95 mg/dL (30-160)
== END ==
LOC: LAB 13:18 → LAB SHORT 13:18
PROVIDERS: Hospitalist
DX: I12.9 Hypertensive chronic kidney disease with stage 1 through stage 4 chronic kidney disease, or unspecified chronic kidney disease (principal)
CPT/HCPCS: 80053; 83735; 84100; 84478; 85025

== ENCOUNTER → 2025-03-06 | Outpatient (CLI) | payer MEDICARE, BC ==
[2025-03-06 15:19] LABS: BASOPHILS ABSOLUTE AUTO 0.08 K/mm3 (0.00-0.23); BASOPHILS PERCENT AUTO 1 % (0-2); EOSINOPHILS ABSOLUTE AUTO 0.13 K/mm3 (0.00-0.68); EOSINOPHILS PERCENT AUTO 2 % (0-6); Hematocrit 25.3 % (33.0-51.0); Hemoglobin 7.7 g/dL (11.5-16.0); IMMATURE GRAN ABSOLUTE AUTO 0.04 K/mm3 (0.00-0.10); IMMATURE GRAN PERCENT AUTO 1 % (0-1); LYMPHOCYTES ABSOLUTE AUTO 1.10 K/mm3 (0.84-5.20); LYMPHOCYTES PERCENT AUTO 19 % (21-46); MONOCYTES ABSOLUTE AUTO 0.55 K/mm3 (0.16-1.47); MONOCYTES PERCENT AUTO 9 % (4-13); Mean Corpuscular HGB Conc 30.4 g/dL (31.5-36.5); Mean Corpuscular Volume 100 fL (80-100); NEUTROPHILS ABSOLUTE AUTO 4.03 K/mm3 (1.96-9.15); NEUTROPHILS PERCENT AUTO 68 % (41-73); NRBC ABSOLUTE 0.00 K/mm3 (0.00-0.02); NRBC Auto 0.0 /100 WBC (0.0-0.2); Platelet Count 232 K/mm3 (150-400); RDW Coefficient Variation 13.9 % (11.7-14.2); RDW Standard Deviation 50.4 fL (35.1-46.3)
[2025-03-06 15:37] LABS: Alanine Aminotransfer (ALT/SGP 97 U/L (12-78); Albumin, Blood 2.7 g/dL (3.4-5.0); Albumin/Globulin Ratio 0.9 (0.8-1.8); Anion Gap 8 mmol/L (3-11); Aspartate Aminotrans (AST/SGOT 79 U/L (12-37); Bilirubin, Total 0.3 mg/dL (0.1-1.0); Blood Urea Nitrogen 30 mg/dL (8-24); CO2, Blood 30 mmol/L (21-32); Calcium, Blood 7.9 mg/dL (8.5-10.1); Chloride, Blood 104 mmol/L (98-108); Creatinine, Blood 1.71 mg/dL (0.40-1.00); Globulin, Blood 2.9 g/dL (2.2-4.0); Glucose, Blood 75 mg/dL (70-99); Magnesium, Blood 2.2 mg/dL (1.6-2.4); Phosphorus, Blood 4.1 mg/dL (2.5-4.9); Potassium, Blood 4.0 mmol/L (3.5-5.5); Sodium, Blood 138 mmol/L (136-145); Total Protein, Blood 5.6 g/dL (6.4-8.2); Triglycerides 98 mg/dL (30-160)
== END ==
LOC: LAB 13:35 → LAB SHORT 13:35
PROVIDERS: Hospitalist
DX: Z45.2 Encounter for adjustment and management of vascular access device (principal); R63.4 Abnormal weight loss; I12.9 Hypertensive chronic kidney disease with stage 1 through stage 4 chronic kidney disease, or unspecified chronic kidney disease
CPT/HCPCS: 80053; 83735; 84100; 84478; 85025

== ENCOUNTER → 2025-03-12 | Outpatient (CLI) | payer MEDICARE, BC ==
[2025-03-12 14:29] LABS: BASOPHILS ABSOLUTE AUTO 0.04 K/mm3 (0.00-0.23); BASOPHILS PERCENT AUTO 1 % (0-2); EOSINOPHILS ABSOLUTE AUTO 0.10 K/mm3 (0.00-0.68); EOSINOPHILS PERCENT AUTO 2 % (0-6); Hematocrit 25.8 % (33.0-51.0); Hemoglobin 8.0 g/dL (11.5-16.0); IMMATURE GRAN ABSOLUTE AUTO 0.02 K/mm3 (0.00-0.10); IMMATURE GRAN PERCENT AUTO 1 % (0-1); LYMPHOCYTES ABSOLUTE AUTO 0.61 K/mm3 (0.84-5.20); LYMPHOCYTES PERCENT AUTO 14 % (21-46); MONOCYTES ABSOLUTE AUTO 0.39 K/mm3 (0.16-1.47); MONOCYTES PERCENT AUTO 9 % (4-13); Mean Corpuscular HGB Conc 31.0 g/dL (31.5-36.5); Mean Corpuscular Volume 100 fL (80-100); NEUTROPHILS ABSOLUTE AUTO 3.20 K/mm3 (1.96-9.15); NEUTROPHILS PERCENT AUTO 73 % (41-73); NRBC ABSOLUTE 0.00 K/mm3 (0.00-0.02); NRBC Auto 0.0 /100 WBC (0.0-0.2); Platelet Count 253 K/mm3 (150-400); RDW Coefficient Variation 14.5 % (11.7-14.2); RDW Standard Deviation 52.4 fL (35.1-46.3)
[2025-03-12 14:34] LABS: Magnesium, Blood 2.4 mg/dL (1.6-2.4)
[2025-03-12 14:35] LABS: Alanine Aminotransfer (ALT/SGP 70 U/L (12-78); Albumin, Blood 2.9 g/dL (3.4-5.0); Albumin/Globulin Ratio 1.0 (0.8-1.8); Anion Gap 9 mmol/L (3-11); Aspartate Aminotrans (AST/SGOT 53 U/L (12-37); Bilirubin, Total 0.3 mg/dL (0.1-1.0); Blood Urea Nitrogen 42 mg/dL (8-24); CO2, Blood 27 mmol/L (21-32); Calcium, Blood 8.0 mg/dL (8.5-10.1); Chloride, Blood 105 mmol/L (98-108); Creatinine, Blood 1.50 mg/dL (0.40-1.00); Globulin, Blood 2.9 g/dL (2.2-4.0); Glucose, Blood 116 mg/dL (70-99); Phosphorus, Blood 4.8 mg/dL (2.5-4.9); Potassium, Blood 3.8 mmol/L (3.5-5.5); Sodium, Blood 137 mmol/L (136-145); Total Protein, Blood 5.8 g/dL (6.4-8.2); Triglycerides 108 mg/dL (30-160)
== END ==
LOC: LAB SHORT 10:35 → LAB 10:35
PROVIDERS: Hospitalist
DX: Z45.2 Encounter for adjustment and management of vascular access device (principal); N18.4 Chronic kidney disease, stage 4 (severe); Z87 Personal history of other diseases and conditions
CPT/HCPCS: 80053; 83735; 84100; 84478; 85025

== ENCOUNTER → 2025-03-19 | Outpatient (CLI) | payer MEDICARE, BC ==
[2025-03-19 10:59] LABS: BASOPHILS ABSOLUTE AUTO 0.06 K/mm3 (0.00-0.23); BASOPHILS PERCENT AUTO 1 % (0-2); EOSINOPHILS ABSOLUTE AUTO 0.25 K/mm3 (0.00-0.68); EOSINOPHILS PERCENT AUTO 4 % (0-6); Hematocrit 25.8 % (33.0-51.0); Hemoglobin 7.9 g/dL (11.5-16.0); IMMATURE GRAN ABSOLUTE AUTO 0.06 K/mm3 (0.00-0.10); IMMATURE GRAN PERCENT AUTO 1 % (0-1); LYMPHOCYTES ABSOLUTE AUTO 1.09 K/mm3 (0.84-5.20); LYMPHOCYTES PERCENT AUTO 19 % (21-46); MONOCYTES ABSOLUTE AUTO 1.03 K/mm3 (0.16-1.47); MONOCYTES PERCENT AUTO 18 % (4-13); Mean Corpuscular HGB Conc 30.6 g/dL (31.5-36.5); Mean Corpuscular Volume 99 fL (80-100); NEUTROPHILS ABSOLUTE AUTO 3.19 K/mm3 (1.96-9.15); NEUTROPHILS PERCENT AUTO 56 % (41-73); NRBC ABSOLUTE 0.00 K/mm3 (0.00-0.02); NRBC Auto 0.0 /100 WBC (0.0-0.2); Platelet Count 327 K/mm3 (150-400); RDW Coefficient Variation 14.4 % (11.7-14.2); RDW Standard Deviation 52.1 fL (35.1-46.3)
[2025-03-19 11:04] LABS: Prothrombin Time Results 10.2 Sec (9.7-11.5)
[2025-03-19 11:09] LABS: Alanine Aminotransfer (ALT/SGP 35 U/L (12-78); Albumin, Blood 2.1 g/dL (3.4-5.0); Albumin/Globulin Ratio 0.6 (0.8-1.8); Anion Gap 8 mmol/L (3-11); Aspartate Aminotrans (AST/SGOT 33 U/L (12-37); Bilirubin, Total 0.2 mg/dL (0.1-1.0); Blood Urea Nitrogen 41 mg/dL (8-24); CO2, Blood 31 mmol/L (21-32); Calcium, Blood 8.3 mg/dL (8.5-10.1); Chloride, Blood 103 mmol/L (98-108); Creatinine, Blood 1.67 mg/dL (0.40-1.00); Globulin, Blood 3.8 g/dL (2.2-4.0); Glucose, Blood 95 mg/dL (70-99); Magnesium, Blood 2.5 mg/dL (1.6-2.4); Phosphorus, Blood 3.4 mg/dL (2.5-4.9); Potassium, Blood 4.5 mmol/L (3.5-5.5); Sodium, Blood 137 mmol/L (136-145); Total Protein, Blood 5.9 g/dL (6.4-8.2); Triglycerides 169 mg/dL (30-160)
== END | disposition home or self-care (01) ==
LOC: LAB SHORT 09:15 → LAB 09:15
PROVIDERS: Hospitalist
DX: Z45.2 Encounter for adjustment and management of vascular access device (principal); I12.9 Hypertensive chronic kidney disease with stage 1 through stage 4 chronic kidney disease, or unspecified chronic kidney disease; N18.4 Chronic kidney disease, stage 4 (severe); E87.6 Hypokalemia
CPT/HCPCS: 80053; 83735; 84100; 84478; 85025; 85610

== ENCOUNTER → 2025-03-26 | Outpatient (CLI) | payer MEDICARE, BC ==
[2025-03-26 19:13] LABS: BASOPHILS ABSOLUTE AUTO 0.04 K/mm3 (0.00-0.23); BASOPHILS PERCENT AUTO 1 % (0-2); EOSINOPHILS ABSOLUTE AUTO 0.10 K/mm3 (0.00-0.68); EOSINOPHILS PERCENT AUTO 1 % (0-6); Hematocrit 26.1 % (33.0-51.0); Hemoglobin 8.2 g/dL (11.5-16.0); IMMATURE GRAN ABSOLUTE AUTO 0.10 K/mm3 (0.00-0.10); IMMATURE GRAN PERCENT AUTO 1 % (0-1); LYMPHOCYTES ABSOLUTE AUTO 1.62 K/mm3 (0.84-5.20); LYMPHOCYTES PERCENT AUTO 19 % (21-46); MONOCYTES ABSOLUTE AUTO 0.75 K/mm3 (0.16-1.47); MONOCYTES PERCENT AUTO 9 % (4-13); Mean Corpuscular HGB Conc 31.4 g/dL (31.5-36.5); Mean Corpuscular Volume 97 fL (80-100); NEUTROPHILS ABSOLUTE AUTO 5.74 K/mm3 (1.96-9.15); NEUTROPHILS PERCENT AUTO 69 % (41-73); NRBC ABSOLUTE 0.00 K/mm3 (0.00-0.02); NRBC Auto 0.0 /100 WBC (0.0-0.2); Platelet Count 630 K/mm3 (150-400); RDW Coefficient Variation 14.3 % (11.7-14.2); RDW Standard Deviation 50.7 fL (35.1-46.3)
[2025-03-26 22:21] LABS: Ferritin, Serum 326 ng/mL (8-252); Magnesium, Blood 2.2 mg/dL (1.6-2.4); Total Iron Binding Capacity 288 ug/dL (250-450)
[2025-03-26 22:22] LABS: Alanine Aminotransfer (ALT/SGP 30 U/L (12-78); Albumin, Blood 2.3 g/dL (3.4-5.0); Albumin/Globulin Ratio 0.6 (0.8-1.8); Anion Gap 12 mmol/L (3-11); Aspartate Aminotrans (AST/SGOT 41 U/L (12-37); Bilirubin, Total 0.3 mg/dL (0.1-1.0); Blood Urea Nitrogen 46 mg/dL (8-24); CO2, Blood 25 mmol/L (21-32); Calcium, Blood 8.3 mg/dL (8.5-10.1); Chloride, Blood 103 mmol/L (98-108); Creatinine, Blood 1.48 mg/dL (0.40-1.00); Globulin, Blood 3.9 g/dL (2.2-4.0); Glucose, Blood 104 mg/dL (70-99); Phosphorus, Blood 4.0 mg/dL (2.5-4.9); Potassium, Blood 4.2 mmol/L (3.5-5.5); Sodium, Blood 136 mmol/L (136-145); Total Protein, Blood 6.2 g/dL (6.4-8.2); Triglycerides 80 mg/dL (30-160)
== END | disposition home or self-care (01) ==
LOC: LAB SHORT 17:12 → LAB 17:12
PROVIDERS: Hospitalist
DX: I12.9 Hypertensive chronic kidney disease with stage 1 through stage 4 chronic kidney disease, or unspecified chronic kidney disease (principal); N18.9 Chronic kidney disease, unspecified; D63.1 Anemia in chronic kidney disease; E53.8 Deficiency of other specified B group vitamins; E87.6 Hypokalemia
CPT/HCPCS: 80053; 82607; 82728; 82746; 83540; 83550; 83735; 84100; 84478; 85025

== ENCOUNTER 2025-04-02 00:28 | Day surgery (SDC) | payer MEDICARE, BC ==
[~2025-04-02 00:28] MED LIST changes: -DIPATR PO; -FAMO20 PO; -FUROSEMIDE40 MG; -TIZANIDINE HCL213
[2025-04-02] MEDS ORDERED: Sod Ferric Gluc Complx/Sucrose 125 MG in NS 100 ML IV SCH (01:00)
[2025-04-02 16:01] VITALS: BP 124/93
== END 2025-04-02 16:57 | disposition home or self-care (01) ==
LOC: ATC 00:28
DX: I12.9 Hypertensive chronic kidney disease with stage 1 through stage 4 chronic kidney disease, or unspecified chronic kidney disease (principal); N18.4 Chronic kidney disease, stage 4 (severe); D63.1 Anemia in chronic kidney disease; E03.9 Hypothyroidism, unspecified; G35 Multiple sclerosis; K52.9 Noninfective gastroenteritis and colitis, unspecified; Z98.84 Bariatric surgery status; Z79.82 Long term (current) use of aspirin; Z79.899 Other long term (current) drug therapy; Z87.891 Personal history of nicotine dependence; Z91.018 Allergy to other foods; Z91.09 Other allergy status, other than to drugs and biological substances; Z90.710 Acquired absence of both cervix and uterus; Z90.49 Acquired absence of other specified parts of digestive tract; E87.6 Hypokalemia; Z45.2 Encounter for adjustment and management of vascular access device
CPT/HCPCS: 80053; 83735; 84100; 84478; 85025; 96365; J2916

== ENCOUNTER → 2025-04-02 | Outpatient (CLI) | payer MEDICARE, BC ==
[~2025-04-02] MED LIST changes: +DIPATR PO; +FAMO20 PO; +FUROSEMIDE40 MG; +TIZANIDINE HCL213
[2025-04-02 12:28] LABS: BASOPHILS ABSOLUTE AUTO 0.04 K/mm3 (0.00-0.23); BASOPHILS PERCENT AUTO 0 % (0-2); EOSINOPHILS ABSOLUTE AUTO 0.16 K/mm3 (0.00-0.68); EOSINOPHILS PERCENT AUTO 2 % (0-6); Hematocrit 25.4 % (33.0-51.0); Hemoglobin 7.8 g/dL (11.5-16.0); IMMATURE GRAN ABSOLUTE AUTO 0.07 K/mm3 (0.00-0.10); IMMATURE GRAN PERCENT AUTO 1 % (0-1); LYMPHOCYTES ABSOLUTE AUTO 1.37 K/mm3 (0.84-5.20); LYMPHOCYTES PERCENT AUTO 14 % (21-46); MONOCYTES ABSOLUTE AUTO 0.79 K/mm3 (0.16-1.47); MONOCYTES PERCENT AUTO 8 % (4-13); Mean Corpuscular HGB Conc 30.7 g/dL (31.5-36.5); Mean Corpuscular Volume 95 fL (80-100); NEUTROPHILS ABSOLUTE AUTO 7.19 K/mm3 (1.96-9.15); NEUTROPHILS PERCENT AUTO 75 % (41-73); NRBC ABSOLUTE 0.00 K/mm3 (0.00-0.02); NRBC Auto 0.0 /100 WBC (0.0-0.2); Platelet Count 603 K/mm3 (150-400); RDW Coefficient Variation 14.6 % (11.7-14.2); RDW Standard Deviation 50.7 fL (35.1-46.3)
[2025-04-02 13:17] LABS: Alanine Aminotransfer (ALT/SGP 14 U/L (12-78); Albumin, Blood 2.1 g/dL (3.4-5.0); Albumin/Globulin Ratio 0.5 (0.8-1.8); Anion Gap 12 mmol/L (3-11); Aspartate Aminotrans (AST/SGOT 18 U/L (12-37); Bilirubin, Total 0.2 mg/dL (0.1-1.0); Blood Urea Nitrogen 32 mg/dL (8-24); CO2, Blood 24 mmol/L (21-32); Calcium, Blood 8.6 mg/dL (8.5-10.1); Chloride, Blood 105 mmol/L (98-108); Creatinine, Blood 1.23 mg/dL (0.40-1.00); Globulin, Blood 4.1 g/dL (2.2-4.0); Glucose, Blood 107 mg/dL (70-99); Magnesium, Blood 2.4 mg/dL (1.6-2.4); Phosphorus, Blood 3.6 mg/dL (2.5-4.9); Potassium, Blood 4.9 mmol/L (3.5-5.5); Sodium, Blood 136 mmol/L (136-145); Total Protein, Blood 6.2 g/dL (6.4-8.2); Triglycerides 123 mg/dL (30-160)
== END ==
LOC: LAB 10:56 → LAB SHORT 10:56
PROVIDERS: Hospitalist
DX: N18.4 Chronic kidney disease, stage 4 (severe) (principal); E87.6 Hypokalemia; Z45.2 Encounter for adjustment and management of vascular access device; K52.9 Noninfective gastroenteritis and colitis, unspecified
CPT/HCPCS: 80053; 83735; 84100; 84478; 85025

== ENCOUNTER 2025-04-04 09:47 | Inpatient (IN) | payer MEDICARE, BC ==
[~2025-04-04] VITALS: Ht 170.2 cm; Wt 60.5 kg
[2025-04-04 11:17] LABS: BASOPHILS ABSOLUTE AUTO 0.05 K/mm3 (0.00-0.23); BASOPHILS PERCENT AUTO 0 % (0-2); EOSINOPHILS ABSOLUTE AUTO 0.16 K/mm3 (0.00-0.68); EOSINOPHILS PERCENT AUTO 1 % (0-6); Hematocrit 28.1 % (33.0-51.0); Hemoglobin 8.9 g/dL (11.5-16.0); IMMATURE GRAN ABSOLUTE AUTO 0.12 K/mm3 (0.00-0.10); IMMATURE GRAN PERCENT AUTO 1 % (0-1); LYMPHOCYTES ABSOLUTE AUTO 0.96 K/mm3 (0.84-5.20); LYMPHOCYTES PERCENT AUTO 7 % (21-46); MONOCYTES ABSOLUTE AUTO 0.70 K/mm3 (0.16-1.47); MONOCYTES PERCENT AUTO 5 % (4-13); Mean Corpuscular HGB Conc 31.7 g/dL (31.5-36.5); Mean Corpuscular Volume 94 fL (80-100); NEUTROPHILS ABSOLUTE AUTO 11.40 K/mm3 (1.96-9.15); NEUTROPHILS PERCENT AUTO 85 % (41-73); NRBC ABSOLUTE 0.00 K/mm3 (0.00-0.02); NRBC Auto 0.0 /100 WBC (0.0-0.2); Platelet Count 668 K/mm3 (150-400); RDW Coefficient Variation 14.9 % (11.7-14.2); RDW Standard Deviation 51.6 fL (35.1-46.3)
[2025-04-04 12:01] LABS: Alanine Aminotransfer (ALT/SGP 16.0 U/L (12-78); Albumin, Blood 2.5 g/dL (3.4-5.0); Albumin/Globulin Ratio 0.5 (0.8-1.8); Anion Gap 12.0 mmol/L (3-11); Aspartate Aminotrans (AST/SGOT 23.0 U/L (12-37); Bilirubin, Total 0.3 mg/dL (0.1-1.0); Blood Urea Nitrogen 30.0 mg/dL (8-24); CO2, Blood 24.0 mmol/L (21-32); Calcium, Blood 9.2 mg/dL (8.5-10.1); Chloride, Blood 103.0 mmol/L (98-108); Creatinine, Blood 1.34 mg/dL (0.40-1.00); Globulin, Blood 4.8 g/dL (2.2-4.0); Glucose, Blood 115.0 mg/dL (70-99); Potassium, Blood 4.7 mmol/L (3.5-5.5); Sodium, Blood 134.0 mmol/L (136-145); Total Protein, Blood 7.3 g/dL (6.4-8.2)
[2025-04-04] MEDS ORDERED: Piperacillin/Tazobactam Sod 3.375 GM in NS 100 ML IV ONE (12:10)
[2025-04-04] MEDS ORDERED: NS 1,000 ML IV SCH (12:10)
[2025-04-04] MEDS ORDERED: HYDROcodone 5-APAP 325 TAB PO ONE (12:25)
[2025-04-04 12:27] LABS: Source, Urine Voided
[2025-04-04 12:36] LABS: Bilirubin, Urine Neg (Neg); Color, Urine Yellow (P-Yellow); Glucose Qualitative, Urine Neg (Neg); Ketones, Urine Neg (Neg); Leukocyte Esterase, Urine 2+ (Neg); Protein, Urine 2+ (Neg); Specific Gravity, Urine 1.010 (1.003-1.022); Urobilinogen, Urine NORM (Normal)
[2025-04-04 12:43] LABS: Red Blood Cells, Urine Not Seen /hpf (0-2)
[2025-04-04 13:33] LABS: Influenza A, PCR NEGATIVE (NEGATIVE); Influenza B, PCR NEGATIVE (NEGATIVE); Resp Syncytial Virus, PCR NEGATIVE (NEGATIVE); SARS-Cov-2 (COVID-19) PCR, MMC NEGATIVE (NEGATIVE)
[2025-04-04] MEDS ORDERED: Vancomycin (Pharmacy Consult) IV SCH (15:15)
[2025-04-04] MEDS ORDERED: Amylase/Lipase/Protease DR Cap 12,000 PO SCH (17:30)
[2025-04-04 18:48] VITALS: BP 162/99
[2025-04-04] MEDS ORDERED: FUROSEMIDE40 MG (20:05)
[2025-04-04] MEDS ORDERED: TIZANIDINE HCL213 (20:09)
[2025-04-04] MEDS ORDERED: DIPATR PO (20:09)
[2025-04-04] MEDS ORDERED: FAMO20 PO (20:15)
[2025-04-04] MEDS ORDERED: Heparin Sodium,Porcine 5,000 UNIT/0.5 ML SDV SC SCH (21:00)
[2025-04-04] MEDS ORDERED: NS 250 ML IV PRN (21:35)
[2025-04-04] MEDS ORDERED: Piperacillin/Tazobactam Sod 4.5 GM in NS 100 ML IV SCH (22:00)
[2025-04-05 04:10] VITALS: BP 130/84
[2025-04-05 06:47] LABS: BASOPHILS ABSOLUTE AUTO 0.06 K/mm3 (0.00-0.23); BASOPHILS PERCENT AUTO 1 % (0-2); EOSINOPHILS ABSOLUTE AUTO 0.17 K/mm3 (0.00-0.68); EOSINOPHILS PERCENT AUTO 2 % (0-6); Hematocrit 25.6 % (33.0-51.0); Hemoglobin 7.9 g/dL (11.5-16.0); IMMATURE GRAN ABSOLUTE AUTO 0.11 K/mm3 (0.00-0.10); IMMATURE GRAN PERCENT AUTO 1 % (0-1); LYMPHOCYTES ABSOLUTE AUTO 1.59 K/mm3 (0.84-5.20); LYMPHOCYTES PERCENT AUTO 16 % (21-46); MONOCYTES ABSOLUTE AUTO 1.01 K/mm3 (0.16-1.47); MONOCYTES PERCENT AUTO 10 % (4-13); Mean Corpuscular HGB Conc 30.9 g/dL (31.5-36.5); Mean Corpuscular Volume 94 fL (80-100); NEUTROPHILS ABSOLUTE AUTO 6.82 K/mm3 (1.96-9.15); NEUTROPHILS PERCENT AUTO 70 % (41-73); NRBC ABSOLUTE 0.00 K/mm3 (0.00-0.02); NRBC Auto 0.0 /100 WBC (0.0-0.2); Platelet Count 581 K/mm3 (150-400); RDW Coefficient Variation 15.3 % (11.7-14.2); RDW Standard Deviation 51.8 fL (35.1-46.3)
[2025-04-05 07:10] LABS: Alanine Aminotransfer (ALT/SGP 18.0 U/L (12-78); Albumin, Blood 2.3 g/dL (3.4-5.0); Albumin/Globulin Ratio 0.5 (0.8-1.8); Anion Gap 10.0 mmol/L (3-11); Aspartate Aminotrans (AST/SGOT 31.0 U/L (12-37); Bilirubin, Total 0.4 mg/dL (0.1-1.0); Blood Urea Nitrogen 26.0 mg/dL (8-24); CO2, Blood 23.0 mmol/L (21-32); Calcium, Blood 8.2 mg/dL (8.5-10.1); Chloride, Blood 109.0 mmol/L (98-108); Creatinine, Blood 1.32 mg/dL (0.40-1.00); Globulin, Blood 4.4 g/dL (2.2-4.0); Glucose, Blood 94.0 mg/dL (70-99); Potassium, Blood 4.5 mmol/L (3.5-5.5); Sodium, Blood 137.0 mmol/L (136-145); Total Protein, Blood 6.7 g/dL (6.4-8.2)
[2025-04-05 07:43] VITALS: BP 123/77
[2025-04-05] MEDS ORDERED: Misc. Tablet PO SCH (09:00)
[2025-04-05 11:43] VITALS: BP 122/80
[2025-04-05 16:50] VITALS: BP 111/82
[2025-04-05 19:33] VITALS: BP 132/88
[2025-04-05 23:49] VITALS: BP 130/88
[2025-04-06 03:37] VITALS: BP 162/97
[2025-04-06 06:12] LABS: BASOPHILS ABSOLUTE AUTO 0.06 K/mm3 (0.00-0.23); BASOPHILS PERCENT AUTO 1 % (0-2); EOSINOPHILS ABSOLUTE AUTO 0.25 K/mm3 (0.00-0.68); EOSINOPHILS PERCENT AUTO 3 % (0-6); Hematocrit 26.2 % (33.0-51.0); Hemoglobin 7.9 g/dL (11.5-16.0); IMMATURE GRAN ABSOLUTE AUTO 0.10 K/mm3 (0.00-0.10); IMMATURE GRAN PERCENT AUTO 1 % (0-1); LYMPHOCYTES ABSOLUTE AUTO 1.59 K/mm3 (0.84-5.20); LYMPHOCYTES PERCENT AUTO 17 % (21-46); MONOCYTES ABSOLUTE AUTO 0.83 K/mm3 (0.16-1.47); MONOCYTES PERCENT AUTO 9 % (4-13); Mean Corpuscular HGB Conc 30.2 g/dL (31.5-36.5); Mean Corpuscular Volume 96 fL (80-100); NEUTROPHILS ABSOLUTE AUTO 6.50 K/mm3 (1.96-9.15); NEUTROPHILS PERCENT AUTO 70 % (41-73); NRBC ABSOLUTE 0.00 K/mm3 (0.00-0.02); NRBC Auto 0.0 /100 WBC (0.0-0.2); Platelet Count 597 K/mm3 (150-400); RDW Coefficient Variation 15.1 % (11.7-14.2); RDW Standard Deviation 53.1 fL (35.1-46.3)
[2025-04-06 06:21] LABS: Anion Gap 11.0 mmol/L (3-11); Blood Urea Nitrogen 20.0 mg/dL (8-24); CO2, Blood 21.0 mmol/L (21-32); Calcium, Blood 8.4 mg/dL (8.5-10.1); Chloride, Blood 110.0 mmol/L (98-108); Creatinine, Blood 1.31 mg/dL (0.40-1.00); Glucose, Blood 82.0 mg/dL (70-99); Potassium, Blood 4.6 mmol/L (3.5-5.5); Sodium, Blood 137.0 mmol/L (136-145)
[2025-04-06 07:13] VITALS: BP 153/93
[2025-04-06 11:07] VITALS: BP 138/91
[2025-04-06 15:29] LABS: Vancomycin, Trough 17.7 ug/mL (5.0-10.0)
[2025-04-06 16:08] VITALS: BP 138/88
[2025-04-06 19:38] VITALS: BP 123/79
[2025-04-07] VITALS (7 sets, daily range): BP systolic 115–154; BP diastolic 75–89
[2025-04-07 05:31] LABS: BASOPHILS ABSOLUTE AUTO 0.04 K/mm3 (0.00-0.23); BASOPHILS PERCENT AUTO 1 % (0-2); EOSINOPHILS ABSOLUTE AUTO 0.28 K/mm3 (0.00-0.68); EOSINOPHILS PERCENT AUTO 4 % (0-6); Hematocrit 23.6 % (33.0-51.0); Hemoglobin 7.2 g/dL (11.5-16.0); IMMATURE GRAN ABSOLUTE AUTO 0.06 K/mm3 (0.00-0.10); IMMATURE GRAN PERCENT AUTO 1 % (0-1); LYMPHOCYTES ABSOLUTE AUTO 1.49 K/mm3 (0.84-5.20); LYMPHOCYTES PERCENT AUTO 21 % (21-46); MONOCYTES ABSOLUTE AUTO 0.71 K/mm3 (0.16-1.47); MONOCYTES PERCENT AUTO 10 % (4-13); Mean Corpuscular HGB Conc 30.5 g/dL (31.5-36.5); Mean Corpuscular Volume 94 fL (80-100); NEUTROPHILS ABSOLUTE AUTO 4.60 K/mm3 (1.96-9.15); NEUTROPHILS PERCENT AUTO 64 % (41-73); NRBC ABSOLUTE 0.00 K/mm3 (0.00-0.02); NRBC Auto 0.0 /100 WBC (0.0-0.2); Platelet Count 571 K/mm3 (150-400); RDW Coefficient Variation 14.9 % (11.7-14.2); RDW Standard Deviation 52.0 fL (35.1-46.3)
[2025-04-07 06:03] LABS: Anion Gap 11.0 mmol/L (3-11); Blood Urea Nitrogen 16.0 mg/dL (8-24); CO2, Blood 22.0 mmol/L (21-32); Calcium, Blood 8.3 mg/dL (8.5-10.1); Chloride, Blood 109.0 mmol/L (98-108); Creatinine, Blood 1.46 mg/dL (0.40-1.00); Glucose, Blood 92.0 mg/dL (70-99); Potassium, Blood 3.8 mmol/L (3.5-5.5); Sodium, Blood 138.0 mmol/L (136-145)
[2025-04-08 04:13] VITALS: BP 103/74
[2025-04-08 05:52] LABS: BASOPHILS ABSOLUTE AUTO 0.05 K/mm3 (0.00-0.23); BASOPHILS PERCENT AUTO 1 % (0-2); EOSINOPHILS ABSOLUTE AUTO 0.30 K/mm3 (0.00-0.68); EOSINOPHILS PERCENT AUTO 4 % (0-6); Hematocrit 24.2 % (33.0-51.0); Hemoglobin 7.6 g/dL (11.5-16.0); IMMATURE GRAN ABSOLUTE AUTO 0.09 K/mm3 (0.00-0.10); IMMATURE GRAN PERCENT AUTO 1 % (0-1); LYMPHOCYTES ABSOLUTE AUTO 1.65 K/mm3 (0.84-5.20); LYMPHOCYTES PERCENT AUTO 20 % (21-46); MONOCYTES ABSOLUTE AUTO 0.71 K/mm3 (0.16-1.47); MONOCYTES PERCENT AUTO 9 % (4-13); Mean Corpuscular HGB Conc 31.4 g/dL (31.5-36.5); Mean Corpuscular Volume 92 fL (80-100); NEUTROPHILS ABSOLUTE AUTO 5.37 K/mm3 (1.96-9.15); NEUTROPHILS PERCENT AUTO 66 % (41-73); NRBC ABSOLUTE 0.00 K/mm3 (0.00-0.02); NRBC Auto 0.0 /100 WBC (0.0-0.2); Platelet Count 624 K/mm3 (150-400); RDW Coefficient Variation 15.0 % (11.7-14.2); RDW Standard Deviation 51.2 fL (35.1-46.3)
[2025-04-08 06:18] LABS: Anion Gap 11.0 mmol/L (3-11); Blood Urea Nitrogen 15.0 mg/dL (8-24); CO2, Blood 24.0 mmol/L (21-32); Calcium, Blood 8.6 mg/dL (8.5-10.1); Chloride, Blood 106.0 mmol/L (98-108); Creatinine, Blood 1.52 mg/dL (0.40-1.00); Glucose, Blood 94.0 mg/dL (70-99); Potassium, Blood 3.6 mmol/L (3.5-5.5); Sodium, Blood 137.0 mmol/L (136-145)
[2025-04-08 07:30] VITALS: BP 132/82
[2025-04-08 11:37] VITALS: BP 130/78
[2025-04-08 15:53] VITALS: BP 131/85
[2025-04-08 19:43] VITALS: BP 111/79
[2025-04-08 23:48] VITALS: BP 143/97
[2025-04-09 04:42] VITALS: BP 131/79
[2025-04-09 05:52] LABS: BASOPHILS ABSOLUTE AUTO 0.08 K/mm3 (0.00-0.23); BASOPHILS PERCENT AUTO 1 % (0-2); EOSINOPHILS ABSOLUTE AUTO 0.34 K/mm3 (0.00-0.68); EOSINOPHILS PERCENT AUTO 4 % (0-6); Hematocrit 25.8 % (33.0-51.0); Hemoglobin 7.9 g/dL (11.5-16.0); IMMATURE GRAN ABSOLUTE AUTO 0.17 K/mm3 (0.00-0.10); IMMATURE GRAN PERCENT AUTO 2 % (0-1); LYMPHOCYTES ABSOLUTE AUTO 1.93 K/mm3 (0.84-5.20); LYMPHOCYTES PERCENT AUTO 21 % (21-46); MONOCYTES ABSOLUTE AUTO 0.85 K/mm3 (0.16-1.47); MONOCYTES PERCENT AUTO 9 % (4-13); Mean Corpuscular HGB Conc 30.6 g/dL (31.5-36.5); Mean Corpuscular Volume 92 fL (80-100); NEUTROPHILS ABSOLUTE AUTO 5.80 K/mm3 (1.96-9.15); NEUTROPHILS PERCENT AUTO 63 % (41-73); NRBC ABSOLUTE 0.00 K/mm3 (0.00-0.02); NRBC Auto 0.0 /100 WBC (0.0-0.2); Platelet Count 676 K/mm3 (150-400); RDW Coefficient Variation 15.0 % (11.7-14.2); RDW Standard Deviation 50.4 fL (35.1-46.3)
[2025-04-09 06:16] LABS: Anion Gap 9.0 mmol/L (3-11); Blood Urea Nitrogen 17.0 mg/dL (8-24); CO2, Blood 23.0 mmol/L (21-32); Calcium, Blood 8.3 mg/dL (8.5-10.1); Chloride, Blood 106.0 mmol/L (98-108); Creatinine, Blood 1.64 mg/dL (0.40-1.00); Glucose, Blood 101.0 mg/dL (70-99); Potassium, Blood 3.1 mmol/L (3.5-5.5); Sodium, Blood 135.0 mmol/L (136-145)
[2025-04-09 07:16] VITALS: BP 122/74
[2025-04-09 11:32] VITALS: BP 111/77
[2025-04-09 15:36] LABS: Vancomycin, Trough 31.0 ug/mL (5.0-10.0)
[2025-04-09 16:11] VITALS: BP 115/82
[2025-04-09 20:37] VITALS: BP 139/85
[2025-04-09] MEDS ORDERED: Lactobacil 2-S.Thermo-Bifido 1 1 Cap PO SCH (21:00)
[2025-04-09 23:38] VITALS: BP 119/74
[2025-04-10 04:19] VITALS: BP 149/99
[2025-04-10 06:06] LABS: BASOPHILS ABSOLUTE AUTO 0.08 K/mm3 (0.00-0.23); BASOPHILS PERCENT AUTO 1 % (0-2); EOSINOPHILS ABSOLUTE AUTO 0.35 K/mm3 (0.00-0.68); EOSINOPHILS PERCENT AUTO 4 % (0-6); Hematocrit 24.7 % (33.0-51.0); Hemoglobin 7.8 g/dL (11.5-16.0); IMMATURE GRAN ABSOLUTE AUTO 0.18 K/mm3 (0.00-0.10); IMMATURE GRAN PERCENT AUTO 2 % (0-1); LYMPHOCYTES ABSOLUTE AUTO 2.11 K/mm3 (0.84-5.20); LYMPHOCYTES PERCENT AUTO 21 % (21-46); MONOCYTES ABSOLUTE AUTO 0.87 K/mm3 (0.16-1.47); MONOCYTES PERCENT AUTO 9 % (4-13); Mean Corpuscular HGB Conc 31.6 g/dL (31.5-36.5); Mean Corpuscular Volume 93 fL (80-100); NEUTROPHILS ABSOLUTE AUTO 6.39 K/mm3 (1.96-9.15); NEUTROPHILS PERCENT AUTO 64 % (41-73); NRBC ABSOLUTE 0.00 K/mm3 (0.00-0.02); NRBC Auto 0.0 /100 WBC (0.0-0.2); Platelet Count 739 K/mm3 (150-400); RDW Coefficient Variation 15.6 % (11.7-14.2); RDW Standard Deviation 51.9 fL (35.1-46.3)
[2025-04-10 06:55] LABS: Anion Gap 10 mmol/L (3-11); Blood Urea Nitrogen 16 mg/dL (8-24); CO2, Blood 22 mmol/L (21-32); Calcium, Blood 8.4 mg/dL (8.5-10.1); Chloride, Blood 107 mmol/L (98-108); Creatinine, Blood 1.33 mg/dL (0.40-1.00); Ferritin, Serum 593 ng/mL (8-252); Glucose, Blood 85 mg/dL (70-99); Potassium, Blood 3.4 mmol/L (3.5-5.5); Sodium, Blood 136 mmol/L (136-145); Total Iron Binding Capacity 251 ug/dL (250-450); Vancomycin, Random 24.1 ug/mL
[2025-04-10 07:19] VITALS: BP 147/99
[2025-04-10 15:22] VITALS: BP 128/87
[2025-04-10 19:19] VITALS: BP 144/79
[2025-04-10 23:48] VITALS: BP 121/76
[2025-04-11 04:27] VITALS: BP 140/81
[2025-04-11 06:21] LABS: BASOPHILS ABSOLUTE AUTO 0.10 K/mm3 (0.00-0.23); BASOPHILS PERCENT AUTO 1 % (0-2); EOSINOPHILS ABSOLUTE AUTO 0.43 K/mm3 (0.00-0.68); EOSINOPHILS PERCENT AUTO 5 % (0-6); Hematocrit 27.1 % (33.0-51.0); Hemoglobin 8.4 g/dL (11.5-16.0); IMMATURE GRAN ABSOLUTE AUTO 0.15 K/mm3 (0.00-0.10); IMMATURE GRAN PERCENT AUTO 2 % (0-1); LYMPHOCYTES ABSOLUTE AUTO 2.15 K/mm3 (0.84-5.20); LYMPHOCYTES PERCENT AUTO 23 % (21-46); MONOCYTES ABSOLUTE AUTO 0.69 K/mm3 (0.16-1.47); MONOCYTES PERCENT AUTO 7 % (4-13); Mean Corpuscular HGB Conc 31.0 g/dL (31.5-36.5); Mean Corpuscular Volume 95 fL (80-100); NEUTROPHILS ABSOLUTE AUTO 5.93 K/mm3 (1.96-9.15); NEUTROPHILS PERCENT AUTO 63 % (41-73); NRBC ABSOLUTE 0.00 K/mm3 (0.00-0.02); NRBC Auto 0.0 /100 WBC (0.0-0.2); Platelet Count 787 K/mm3 (150-400); RDW Coefficient Variation 15.9 % (11.7-14.2); RDW Standard Deviation 54.3 fL (35.1-46.3)
[2025-04-11 06:41] LABS: Anion Gap 13 mmol/L (3-11); Blood Urea Nitrogen 18 mg/dL (8-24); CO2, Blood 23 mmol/L (21-32); Calcium, Blood 8.9 mg/dL (8.5-10.1); Chloride, Blood 106 mmol/L (98-108); Creatinine, Blood 1.42 mg/dL (0.40-1.00); Glucose, Blood 85 mg/dL (70-99); Potassium, Blood 3.6 mmol/L (3.5-5.5); Sodium, Blood 138 mmol/L (136-145); Vancomycin, Trough 17.6 ug/mL (5.0-10.0)
[2025-04-11 07:23] VITALS: BP 129/95
[2025-04-11 13:03] VITALS: BP 118/86
[2025-04-11] MEDS ORDERED: OXAYDO5 M3 PO (14:17)
[2025-04-11] MEDS ORDERED: VANCOMYCIN HCL750 M1 IV (14:19)
[2025-04-11] MEDS ORDERED: PROBIOTIC1 EA14 PO (14:20)
== END 2025-04-11 14:55 | disposition home or self-care (01) | DRG 315 ==
LOC: ER 09:47 → MEDS 15:10 → ENPENDDIS 04-11 13:23 → MEDS 04-11 14:55
PROVIDERS: Emergency Medicine; Family Medicine; ADMIT Internal Medicine
DX: T80.211A Bloodstream infection due to central venous catheter, initial encounter (principal); E87.1 Hypo-osmolality and hyponatremia; E87.20 Acidosis, unspecified; Z68.1 Body mass index [BMI] 19.9 or less, adult; Z66 Do not resuscitate; N18.32 Chronic kidney disease, stage 3b; K86.89 Other specified diseases of pancreas; K52.9 Noninfective gastroenteritis and colitis, unspecified; R63.4 Abnormal weight loss; I12.9 Hypertensive chronic kidney disease with stage 1 through stage 4 chronic kidney disease, or unspecified chronic kidney disease; G40.909 Epilepsy, unspecified, not intractable, without status epilepticus; K21.9 Gastro-esophageal reflux disease without esophagitis; D63.1 Anemia in chronic kidney disease; E87.6 Hypokalemia; I25.10 Atherosclerotic heart disease of native coronary artery without angina pectoris; G35 Multiple sclerosis; G70.00 Myasthenia gravis without (acute) exacerbation; D50.9 Iron deficiency anemia, unspecified; G47.00 Insomnia, unspecified; F41.9 Anxiety disorder, unspecified; I73.9 Peripheral vascular disease, unspecified; Z98.84 Bariatric surgery status; Z90.49 Acquired absence of other specified parts of digestive tract; Z98.890 Other specified postprocedural states; Z87.891 Personal history of nicotine dependence; I25.2 Old myocardial infarction; Z87.19 Personal history of other diseases of the digestive system
CPT/HCPCS: 36415; 71046; 80048; 80053; 80202; 81001; 82607; 82728; 82746; 83540; 83550; 83605; 84145; 85025; 87040; 87070; 87077; 87086; 87186; 87637; 93005; 93010; 93306; 96365; 99284-25; A9270; C1751; J1644; J2543; J3373; J7030; J7050

== ENCOUNTER 2025-04-12 00:38 | Day surgery (SDC) | payer MEDICARE, BC ==
[~2025-04-12 00:38] MED LIST changes: +DIPATR PO; +FAMO20 PO; +FUROSEMIDE40 MG; +OXAYDO5 M3 PO; +PROBIOTIC1 EA14 PO; +TIZANIDINE HCL213; +VANCOMYCIN HCL750 M1 IV
--- NOTE | 2025-04-12 08:12 | NUR ---
Pt's powerglide not drawing blood today. Positional at times. Flushed and pt reports tasting the saline. Peripheral labs drawn from [facility]. Pt has appointment in [facility] this morning and will return for [facility] based on labs.
[2025-04-12 08:47] LABS: Creatinine, Blood 1.48 mg/dL (0.40-1.00); Vancomycin, Random 22.2 ug/mL
== END 2025-04-12 08:12 | disposition home or self-care (01) ==
LOC: ATC 00:38
PROVIDERS: Family Medicine
DX: T80.219A Unspecified infection due to central venous catheter, initial encounter (principal); R78.81 Bacteremia; I12.9 Hypertensive chronic kidney disease with stage 1 through stage 4 chronic kidney disease, or unspecified chronic kidney disease; N18.32 Chronic kidney disease, stage 3b; K21.9 Gastro-esophageal reflux disease without esophagitis; K90.9 Intestinal malabsorption, unspecified; R19.7 Diarrhea, unspecified; R63.4 Abnormal weight loss; Z66 Do not resuscitate; Z74.09 Other reduced mobility
CPT/HCPCS: 36415; 74250; 80202; 82565; 99211

== ENCOUNTER 2025-04-13 01:34 | Day surgery (SDC) | payer MEDICARE, BC ==
[2025-04-13 08:45] VITALS: BP 115/73
[2025-04-13 09:24] LABS: Creatinine, Blood 1.62 mg/dL (0.40-1.00); Vancomycin, Random 17.1 ug/mL
== END 2025-04-13 10:58 | disposition home or self-care (01) ==
LOC: ATC 01:34
PROVIDERS: Family Medicine
DX: T80.219A Unspecified infection due to central venous catheter, initial encounter (principal); R78.81 Bacteremia; I12.9 Hypertensive chronic kidney disease with stage 1 through stage 4 chronic kidney disease, or unspecified chronic kidney disease; N18.32 Chronic kidney disease, stage 3b; K21.9 Gastro-esophageal reflux disease without esophagitis; G40.909 Epilepsy, unspecified, not intractable, without status epilepticus; Z66 Do not resuscitate
CPT/HCPCS: 80202; 82565; 96365; J3373; J7050

== ENCOUNTER 2025-04-15 00:52 | Day surgery (SDC) | payer MEDICARE, BC ==
[2025-04-15 08:24] VITALS: BP 136/91
--- NOTE | 2025-04-15 09:05 | NUR ---
LAB VINICIUS VANCO RANDOM AND SERUM CREATININE FROM PT'S RIGHT AC THIS AM.
[2025-04-15 09:10] LABS: Creatinine, Blood 1.34 mg/dL (0.40-1.00); Vancomycin, Random 13.8 ug/mL
--- NOTE | 2025-04-15 11:13 | NUR ---
PT ESCORTED OUT WITH ALL BELONINGS VIA WHEELCHAIR PUSHED BY HER
== END 2025-04-15 11:07 | disposition home or self-care (01) ==
LOC: ATC 00:52
PROVIDERS: Family Medicine
DX: T80.219A Unspecified infection due to central venous catheter, initial encounter (principal); R78.81 Bacteremia; I12.9 Hypertensive chronic kidney disease with stage 1 through stage 4 chronic kidney disease, or unspecified chronic kidney disease; N18.32 Chronic kidney disease, stage 3b; K86.81 Exocrine pancreatic insufficiency; K21.9 Gastro-esophageal reflux disease without esophagitis; G35 Multiple sclerosis; I73.9 Peripheral vascular disease, unspecified; G40.909 Epilepsy, unspecified, not intractable, without status epilepticus; Z66 Do not resuscitate; Z98.84 Bariatric surgery status; Y81.3 Surgical instruments, materials and general- and plastic-surgery devices (including sutures) associated with adverse incidents
CPT/HCPCS: 36415; 80202; 82565; 96365; C1751; J2003; J3373; J7050

== ENCOUNTER 2025-04-17 02:23 | Day surgery (SDC) | payer MEDICARE, BC ==
[2025-04-17 08:15] VITALS: BP 149/88
[2025-04-17 09:00] LABS: Vancomycin, Random 13.3 ug/mL
== END 2025-04-17 10:54 | disposition home or self-care (01) ==
LOC: ATC 02:23
PROVIDERS: Family Medicine
DX: R78.81 Bacteremia (principal); I12.9 Hypertensive chronic kidney disease with stage 1 through stage 4 chronic kidney disease, or unspecified chronic kidney disease; N18.32 Chronic kidney disease, stage 3b; K21.9 Gastro-esophageal reflux disease without esophagitis; G35 Multiple sclerosis; G40.909 Epilepsy, unspecified, not intractable, without status epilepticus; I73.9 Peripheral vascular disease, unspecified; Z66 Do not resuscitate; K86.81 Exocrine pancreatic insufficiency; Z90.49 Acquired absence of other specified parts of digestive tract; Z90.710 Acquired absence of both cervix and uterus
CPT/HCPCS: 80202; 96365; J3373; J7050

== ENCOUNTER 2025-04-19 00:12 | Day surgery (SDC) | payer MEDICARE, BC ==
[2025-04-19 08:39] VITALS: BP 160/96
[2025-04-19 11:55] LABS: BASOPHILS ABSOLUTE AUTO 0.07 K/mm3 (0.00-0.23); BASOPHILS PERCENT AUTO 1 % (0-2); EOSINOPHILS ABSOLUTE AUTO 0.24 K/mm3 (0.00-0.68); EOSINOPHILS PERCENT AUTO 3 % (0-6); Hematocrit 28.4 % (33.0-51.0); Hemoglobin 8.8 g/dL (11.5-16.0); IMMATURE GRAN ABSOLUTE AUTO 0.04 K/mm3 (0.00-0.10); IMMATURE GRAN PERCENT AUTO 0 % (0-1); LYMPHOCYTES ABSOLUTE AUTO 1.78 K/mm3 (0.84-5.20); LYMPHOCYTES PERCENT AUTO 18 % (21-46); MONOCYTES ABSOLUTE AUTO 0.62 K/mm3 (0.16-1.47); MONOCYTES PERCENT AUTO 6 % (4-13); Mean Corpuscular HGB Conc 31.0 g/dL (31.5-36.5); Mean Corpuscular Volume 93 fL (80-100); NEUTROPHILS ABSOLUTE AUTO 6.95 K/mm3 (1.96-9.15); NEUTROPHILS PERCENT AUTO 72 % (41-73); NRBC ABSOLUTE 0.00 K/mm3 (0.00-0.02); NRBC Auto 0.0 /100 WBC (0.0-0.2); Platelet Count 638 K/mm3 (150-400); RDW Coefficient Variation 15.9 % (11.7-14.2); RDW Standard Deviation 54.8 fL (35.1-46.3)
[2025-04-19 12:29] LABS: Alanine Aminotransfer (ALT/SGP 14 U/L (12-78); Albumin, Blood 2.9 g/dL (3.4-5.0); Albumin/Globulin Ratio 0.7 (0.8-1.8); Anion Gap 12 mmol/L (3-11); Aspartate Aminotrans (AST/SGOT 18 U/L (12-37); Bilirubin, Total 0.5 mg/dL (0.1-1.0); Blood Urea Nitrogen 23 mg/dL (8-24); CO2, Blood 20 mmol/L (21-32); Calcium, Blood 8.5 mg/dL (8.5-10.1); Chloride, Blood 106 mmol/L (98-108); Creatinine, Blood 1.31 mg/dL (0.40-1.00); Globulin, Blood 4.2 g/dL (2.2-4.0); Glucose, Blood 113 mg/dL (70-99); Magnesium, Blood 2.0 mg/dL (1.6-2.4); Phosphorus, Blood 4.3 mg/dL (2.5-4.9); Potassium, Blood 4.3 mmol/L (3.5-5.5); Sodium, Blood 134 mmol/L (136-145); Total Protein, Blood 7.1 g/dL (6.4-8.2); Triglycerides 145 mg/dL (30-160)
== END 2025-04-19 11:34 | disposition home or self-care (01) ==
LOC: ATC 00:12
PROVIDERS: Hospitalist
DX: T80.219A Unspecified infection due to central venous catheter, initial encounter (principal); R78.81 Bacteremia; R63.4 Abnormal weight loss; K86.81 Exocrine pancreatic insufficiency; N18.32 Chronic kidney disease, stage 3b; E87.6 Hypokalemia; G40.909 Epilepsy, unspecified, not intractable, without status epilepticus; E03.9 Hypothyroidism, unspecified; Z79.82 Long term (current) use of aspirin; Z79.899 Other long term (current) drug therapy; Z91.018 Allergy to other foods; Z91.048 Other nonmedicinal substance allergy status; Z87.891 Personal history of nicotine dependence
CPT/HCPCS: 36569; 80053; 83735; 84100; 84478; 85025; 96365; C1751; J3373; J7050

== ENCOUNTER 2025-04-26 14:53 | Inpatient (IN) | payer MEDICARE, BC ==
[~2025-04-26] VITALS: Ht 170.2 cm; Wt 57.1 kg
[~2025-04-26 14:53] MED LIST changes: -PRAM.125 PO; -ZENPEP PO
[2025-04-26] MEDS ORDERED: Ondansetron HCl 2 MG / ML 2ML Vial IV ONE (17:25)
[2025-04-26] MEDS ORDERED: HYDROmorphone HCl/Pf 1MG SYR IV ONE (17:25)
[2025-04-26] MEDS ORDERED: Vancomycin (Pharmacy Consult) IV PRN (18:55)
[2025-04-26] MEDS ORDERED: Vancomycin (Pharmacy Consult) IV SCH (19:15)
[2025-04-26] MEDS ORDERED: FentaNYL Citrate 50 MCG/ML 2 ML Injection IV PRN ×2 (19:15→19:20)
[2025-04-26] MEDS ORDERED: FLU VACC TS2025-26(6MOS UP)/PF 45 MCG/0.5 ML SYRINGE IM ONE (19:20)
[2025-04-26] MEDS ORDERED: Ondansetron HCl 2 MG / ML 2ML Vial IV PRN (19:20)
[2025-04-26] MEDS ORDERED: Piperacillin/Tazobactam Sod 3.375 GM in NS 100 ML IV ONE (19:40)
[2025-04-26] MEDS ORDERED: NS 1,000 ML IV SCH (20:00)
[2025-04-26 21:09] LABS: Prothrombin Time Results 11.2 Sec (9.7-11.5)
[2025-04-26] MEDS ORDERED: HYDROmorphone HCl/Pf 1MG SYR IV PRN (22:10)
[2025-04-26] MEDS ORDERED: Naloxone HCl 0.4MG / ML 1ML Vial IV PRN (22:10)
[2025-04-26 23:21] VITALS: BP 141/91
[2025-04-27] MEDS ORDERED: TIZA4 PO (00:22)
[2025-04-27] MEDS ORDERED: PRAM.125 PO (00:23)
[2025-04-27] MEDS ORDERED: HYDROmorphone HCl/Pf 1MG SYR IV PRN (01:30)
[2025-04-27] MEDS ORDERED: Piperacillin/Tazobactam Sod 3.375 GM in NS 100 ML IV SCH (03:00)
[2025-04-27 03:15] VITALS: BP 142/80
[2025-04-27 05:32] LABS: BASOPHILS ABSOLUTE AUTO 0.06 K/mm3 (0.00-0.23); BASOPHILS PERCENT AUTO 1 % (0-2); EOSINOPHILS ABSOLUTE AUTO 0.41 K/mm3 (0.00-0.68); EOSINOPHILS PERCENT AUTO 6 % (0-6); Hematocrit 26.3 % (33.0-51.0); Hemoglobin 7.9 g/dL (11.5-16.0); IMMATURE GRAN ABSOLUTE AUTO 0.03 K/mm3 (0.00-0.10); IMMATURE GRAN PERCENT AUTO 0 % (0-1); LYMPHOCYTES ABSOLUTE AUTO 1.79 K/mm3 (0.84-5.20); LYMPHOCYTES PERCENT AUTO 27 % (21-46); MONOCYTES ABSOLUTE AUTO 0.61 K/mm3 (0.16-1.47); MONOCYTES PERCENT AUTO 9 % (4-13); Mean Corpuscular HGB Conc 30.0 g/dL (31.5-36.5); Mean Corpuscular Volume 94 fL (80-100); NEUTROPHILS ABSOLUTE AUTO 3.82 K/mm3 (1.96-9.15); NEUTROPHILS PERCENT AUTO 57 % (41-73); NRBC ABSOLUTE 0.00 K/mm3 (0.00-0.02); NRBC Auto 0.0 /100 WBC (0.0-0.2); Platelet Count 550 K/mm3 (150-400); RDW Coefficient Variation 16.6 % (11.7-14.2); RDW Standard Deviation 57.0 fL (35.1-46.3)
--- NOTE | 2025-04-27 05:42 | NUR ---
SHIFT SUMMARY JAMIE WAS ALERT AND FULLY ORIENTED WHEN SHE ARRIVED FROM THE ED. PT HAS A PAINFUL MASS ON L NECK THAT APPEARED OVERNIGHT PRIOR TO ADMIT. PT HAS PICC LINE TO ANA. RECENT HX OF SEPSIS. PT REPORTS WEAKNESS, AND WEIGHT LOSS. PT AWAITING MRI TO L HIP DUE TO FALL, PAINFUL/ DIFFICULT TO AMBULATE. STATES MINOR SOB WITH EXCERTION PAST FEW MONTHS. DENIES CHEST PAIN OR NAUSEA. NO ACUTE EVENTS TONIGHT. PAIN WELL MANAGED.
[2025-04-27 05:57] LABS: Alanine Aminotransfer (ALT/SGP 10.0 U/L (12-78); Albumin, Blood 2.5 g/dL (3.4-5.0); Albumin/Globulin Ratio 0.7 (0.8-1.8); Anion Gap 8.0 mmol/L (3-11); Aspartate Aminotrans (AST/SGOT 18.0 U/L (12-37); Bilirubin, Total 0.5 mg/dL (0.1-1.0); Blood Urea Nitrogen 26.0 mg/dL (8-24); CO2, Blood 24.0 mmol/L (21-32); Calcium, Blood 8.2 mg/dL (8.5-10.1); Chloride, Blood 108.0 mmol/L (98-108); Creatinine, Blood 1.45 mg/dL (0.40-1.00); Globulin, Blood 3.4 g/dL (2.2-4.0); Glucose, Blood 93.0 mg/dL (70-99); Potassium, Blood 4.3 mmol/L (3.5-5.5); Sodium, Blood 136.0 mmol/L (136-145); Total Protein, Blood 5.9 g/dL (6.4-8.2)
[2025-04-27 07:01] VITALS: BP 146/91
--- NOTE | 2025-04-27 10:51 | NUR ---
PT TAKEN VIA GURNEY TO IMAGING FOR ABSCESS DRAINAGE/FLUID COLLECTION.
[2025-04-27] MEDS ORDERED: ZENPEP PO (11:06)
[2025-04-27] MEDS ORDERED: Potassium Chloride 10 Meq Tablet SA PO SCH ×2 (11:56→21:00)
--- NOTE | 2025-04-27 11:57 | NUR ---
PT ARRIVED BACK FROM IMAGING. BANDAID IN PLACE ON R NECK FLUID ASPIRATION SITE. LAB NOTIFIED THIS RN THAT SPECIMEN WAS RECIEVED BUT NO ORDERS. THIS RN PLACED A CALL AND LEFT A MESSAGE WITH DR. PATEL. SECOND CALL PLACED AT 1155, SPOKE WITH DR. PATEL. HE STATED HE WILL PLACE ORDERS.
[2025-04-27 12:14] VITALS: BP 155/88
[2025-04-27] MEDS ORDERED: ZENPEP PO SCH (12:30)
[2025-04-27] MEDS ORDERED: Diphenoxylat/Atrop 2.5 / 0.025MG 1 Tab PO SCH (13:00)
[2025-04-27] MEDS ORDERED: TPN Consult Notification XX ONE (13:20)
[2025-04-27 14:31] VITALS: BP 141/87
[2025-04-27] MEDS ORDERED: SODIUM CHLORIDE IV SCH (17:00)
[2025-04-27] MEDS ORDERED: POTASSIUM CHLORIDE 50 MEQ IV SCH (17:00)
[2025-04-27] MEDS ORDERED: [UNRECOGNIZED DRUG - OTHER] IV SCH (17:00)
[2025-04-27] MEDS ORDERED: SODIUM ACETATE IV SCH (17:00)
[2025-04-27] MEDS ORDERED: NS 250 ML IV PRN (18:40)
--- NOTE | 2025-04-27 19:32 | NUR ---
SHIFT SUMMARY PT HAD A RADIOLOGY GUIDED ASPIRATION OF A LUMP ON HER NECK, PER DR. PATEL IT IS A SUSPECTED HEMATOMA. TPN STARTED TODAY. PT HAS BEEN ALERT/ORIENTED. PAIN MANAGED WITH PO PAIN [employer]ICAIT[employer]. SHE IS A 1 ASSIST FOR STAND PIVOT TRANSFERS. REPORT GIVEN TO [facility].
[2025-04-27 19:34] VITALS: BP 116/80
[2025-04-28 00:29] VITALS: BP 106/70
[2025-04-28 04:55] VITALS: BP 138/86
--- NOTE | 2025-04-28 05:07 | NUR ---
SHIFT SUMMARY JAMIE WAS ALERT AND FULLY ORIENTED ON ASSESSMENT. MASS ON NECK NOTED TO BE SMALLER THIS SHIFT THAN PREV NOC. PT STATES THAT SHE FEELS IT IS MIGRATING TO THE BACK OF HER SHOULDER, ON ASSESSMENT, BACK OF R SHOULD DOES APPEAR TO BE SOMEWHAT SWOLLEN. PAIN IMPROVED. HOSPITALIST UPDATED WITH TELE INFO, PT HAD A 12 BEAT RUN OF SVT ON DAY SHIFT YESTERDAY, AND A FEW PVCS EARLY THIS AM. NO CHANGES TO ORDERS. NO ACUTE EVENTS TONIGHT. NO OTHER CHANGES NOTED. PT DENIES SOB, NAUSEA, OR CHEST PAIN.
[2025-04-28 05:29] LABS: Magnesium, Blood 2.2 mg/dL (1.6-2.4)
[2025-04-28 05:30] LABS: Anion Gap 9 mmol/L (3-11); Blood Urea Nitrogen 24 mg/dL (8-24); CO2, Blood 27 mmol/L (21-32); Calcium, Blood 8.4 mg/dL (8.5-10.1); Chloride, Blood 107 mmol/L (98-108); Creatinine, Blood 1.61 mg/dL (0.40-1.00); Glucose, Blood 110 mg/dL (70-99); Phosphorus, Blood 3.4 mg/dL (2.5-4.9); Potassium, Blood 4.3 mmol/L (3.5-5.5); Sodium, Blood 139 mmol/L (136-145); Triglycerides 107 mg/dL (30-160); Vancomycin, Random 8.5 ug/mL
[2025-04-28 07:14] LABS: BASOPHILS ABSOLUTE AUTO 0.07 K/mm3 (0.00-0.23); BASOPHILS PERCENT AUTO 1 % (0-2); EOSINOPHILS ABSOLUTE AUTO 0.46 K/mm3 (0.00-0.68); EOSINOPHILS PERCENT AUTO 7 % (0-6); Hematocrit 26.7 % (33.0-51.0); Hemoglobin 8.1 g/dL (11.5-16.0); IMMATURE GRAN ABSOLUTE AUTO 0.03 K/mm3 (0.00-0.10); IMMATURE GRAN PERCENT AUTO 0 % (0-1); LYMPHOCYTES ABSOLUTE AUTO 1.56 K/mm3 (0.84-5.20); LYMPHOCYTES PERCENT AUTO 23 % (21-46); MONOCYTES ABSOLUTE AUTO 0.56 K/mm3 (0.16-1.47); MONOCYTES PERCENT AUTO 8 % (4-13); Mean Corpuscular HGB Conc 30.3 g/dL (31.5-36.5); Mean Corpuscular Volume 95 fL (80-100); NEUTROPHILS ABSOLUTE AUTO 4.09 K/mm3 (1.96-9.15); NEUTROPHILS PERCENT AUTO 61 % (41-73); NRBC ABSOLUTE 0.00 K/mm3 (0.00-0.02); NRBC Auto 0.0 /100 WBC (0.0-0.2); Platelet Count 571 K/mm3 (150-400); RDW Coefficient Variation 16.7 % (11.7-14.2); RDW Standard Deviation 57.5 fL (35.1-46.3)
[2025-04-28 07:46] VITALS: BP 147/87
[2025-04-28 11:31] VITALS: BP 118/75
--- NOTE | 2025-04-28 13:15 | NUR ---
DISCHARGE PT PROVIDED WITH WRITTEN AND VERBAL DISCHARGE INSTRUCTIONS, SHE VERBALIZED UNDERSTANDING. PRESCRIPTION SENT TO [facility] PER PT REQUEST. PAIN MANAGED AT TIME OF DISCHARGE. VSS. PT ASSISTED OUT IN W/C.
== END 2025-04-28 13:13 | disposition home or self-care (01) | DRG 555 ==
LOC: ER 14:53 → SURS 19:06 → ERHOLD 19:06 → SURS 23:24
PROVIDERS: Student in an Organized Health Care Education/Training Program; ADMIT Internal Medicine
PROC: 3E03329 Introduction of Other Anti-infective into Peripheral Vein, Percutaneous Approach (ICD-10-PCS; 2025-04-26)
PROC: 0W963ZX Drainage of Neck, Percutaneous Approach, Diagnostic (ICD-10-PCS; principal; 2025-04-27)
PROC: 3E0436Z Introduction of Nutritional Substance into Central Vein, Percutaneous Approach (ICD-10-PCS; 2025-04-27)
DX: M79.81 Nontraumatic hematoma of soft tissue (principal); E43 Unspecified severe protein-calorie malnutrition; N25.81 Secondary hyperparathyroidism of renal origin; N18.4 Chronic kidney disease, stage 4 (severe); Z68.1 Body mass index [BMI] 19.9 or less, adult; Z66 Do not resuscitate; K52.9 Noninfective gastroenteritis and colitis, unspecified; I12.9 Hypertensive chronic kidney disease with stage 1 through stage 4 chronic kidney disease, or unspecified chronic kidney disease; G40.909 Epilepsy, unspecified, not intractable, without status epilepticus; G35 Multiple sclerosis; M81.0 Age-related osteoporosis without current pathological fracture; K86.81 Exocrine pancreatic insufficiency; I25.10 Atherosclerotic heart disease of native coronary artery without angina pectoris; I25.5 Ischemic cardiomyopathy; G70.00 Myasthenia gravis without (acute) exacerbation; D63.1 Anemia in chronic kidney disease; G25.81 Restless legs syndrome; G89.29 Other chronic pain; M25.559 Pain in unspecified hip; R22.1 Localized swelling, mass and lump, neck; M79.89 Other specified soft tissue disorders; Z87.891 Personal history of nicotine dependence; Z79.891 Long term (current) use of opiate analgesic
CPT/HCPCS: 10030; 36415; 70491; 77085; 77091; 80048; 80053; 80202; 82947; 83735; 83880; 84100; 84478; 85025; 85610; 87040; 87070; 87075; 87205; 88108; 88305; 93005; 93010; 96374-59; 96375; 99284-25; A9270; J0612; J1171; J2405; J2543; J3373; J3411; J3475; J3480; J7030; J7050; J7131; Q9967

== ENCOUNTER → 2025-04-26 | Outpatient (CLI) | payer MEDICARE, BC ==
[~2025-04-26] MED LIST changes: +PRAM.125 PO; +ZENPEP PO
[2025-04-26 13:12] LABS: BASOPHILS ABSOLUTE AUTO 0.07 K/mm3 (0.00-0.23); BASOPHILS PERCENT AUTO 1 % (0-2); EOSINOPHILS ABSOLUTE AUTO 0.22 K/mm3 (0.00-0.68); EOSINOPHILS PERCENT AUTO 2 % (0-6); Hematocrit 27.6 % (33.0-51.0); Hemoglobin 8.7 g/dL (11.5-16.0); IMMATURE GRAN ABSOLUTE AUTO 0.03 K/mm3 (0.00-0.10); IMMATURE GRAN PERCENT AUTO 0 % (0-1); LYMPHOCYTES ABSOLUTE AUTO 1.60 K/mm3 (0.84-5.20); LYMPHOCYTES PERCENT AUTO 18 % (21-46); MONOCYTES ABSOLUTE AUTO 0.62 K/mm3 (0.16-1.47); MONOCYTES PERCENT AUTO 7 % (4-13); Mean Corpuscular HGB Conc 31.5 g/dL (31.5-36.5); Mean Corpuscular Volume 91 fL (80-100); NEUTROPHILS ABSOLUTE AUTO 6.50 K/mm3 (1.96-9.15); NEUTROPHILS PERCENT AUTO 72 % (41-73); NRBC ABSOLUTE 0.00 K/mm3 (0.00-0.02); NRBC Auto 0.0 /100 WBC (0.0-0.2); Platelet Count 609 K/mm3 (150-400); RDW Coefficient Variation 16.7 % (11.7-14.2); RDW Standard Deviation 54.7 fL (35.1-46.3)
[2025-04-26 13:23] LABS: Alanine Aminotransfer (ALT/SGP 14.0 U/L (12-78); Albumin, Blood 3.1 g/dL (3.4-5.0); Albumin/Globulin Ratio 0.8 (0.8-1.8); Anion Gap 17.0 mmol/L (3-11); Aspartate Aminotrans (AST/SGOT 22.0 U/L (12-37); Bilirubin, Total 0.5 mg/dL (0.1-1.0); Blood Urea Nitrogen 32.0 mg/dL (8-24); CO2, Blood 23.0 mmol/L (21-32); Calcium, Blood 8.7 mg/dL (8.5-10.1); Chloride, Blood 103.0 mmol/L (98-108); Creatinine, Blood 2.02 mg/dL (0.40-1.00); Globulin, Blood 4.1 g/dL (2.2-4.0); Glucose, Blood 99.0 mg/dL (70-99); Potassium, Blood 4.4 mmol/L (3.5-5.5); Sodium, Blood 139.0 mmol/L (136-145); Total Protein, Blood 7.2 g/dL (6.4-8.2)
== END ==
LOC: LAB SHORT 13:07 → LAB 13:07
DX: R22.1 Localized swelling, mass and lump, neck (principal)
CPT/HCPCS: 80053; 85025

== ENCOUNTER → 2025-05-07 | Outpatient (CLI) | payer MEDICARE, BC ==
[~2025-05-07] MED LIST changes: +PRAM.125 PO; +ZENPEP PO
[2025-05-07 13:54] LABS: BASOPHILS ABSOLUTE AUTO 0.06 K/mm3 (0.00-0.23); BASOPHILS PERCENT AUTO 1 % (0-2); EOSINOPHILS ABSOLUTE AUTO 0.20 K/mm3 (0.00-0.68); EOSINOPHILS PERCENT AUTO 3 % (0-6); Hematocrit 28.6 % (33.0-51.0); Hemoglobin 8.7 g/dL (11.5-16.0); IMMATURE GRAN ABSOLUTE AUTO 0.05 K/mm3 (0.00-0.10); IMMATURE GRAN PERCENT AUTO 1 % (0-1); LYMPHOCYTES ABSOLUTE AUTO 1.26 K/mm3 (0.84-5.20); LYMPHOCYTES PERCENT AUTO 16 % (21-46); MONOCYTES ABSOLUTE AUTO 0.66 K/mm3 (0.16-1.47); MONOCYTES PERCENT AUTO 8 % (4-13); Mean Corpuscular HGB Conc 30.4 g/dL (31.5-36.5); Mean Corpuscular Volume 91 fL (80-100); NEUTROPHILS ABSOLUTE AUTO 5.83 K/mm3 (1.96-9.15); NEUTROPHILS PERCENT AUTO 72 % (41-73); NRBC ABSOLUTE 0.00 K/mm3 (0.00-0.02); NRBC Auto 0.0 /100 WBC (0.0-0.2); Platelet Count 457 K/mm3 (150-400); RDW Coefficient Variation 16.7 % (11.7-14.2); RDW Standard Deviation 55.8 fL (35.1-46.3)
[2025-05-07 14:23] LABS: Alanine Aminotransfer (ALT/SGP 21 U/L (12-78); Albumin, Blood 3.0 g/dL (3.4-5.0); Albumin/Globulin Ratio 0.7 (0.8-1.8); Anion Gap 12 mmol/L (3-11); Aspartate Aminotrans (AST/SGOT 29 U/L (12-37); Bilirubin, Total 0.4 mg/dL (0.1-1.0); Blood Urea Nitrogen 31 mg/dL (8-24); CO2, Blood 24 mmol/L (21-32); Calcium, Blood 9.0 mg/dL (8.5-10.1); Chloride, Blood 102 mmol/L (98-108); Creatinine, Blood 1.33 mg/dL (0.40-1.00); Globulin, Blood 4.2 g/dL (2.2-4.0); Glucose, Blood 109 mg/dL (70-99); Magnesium, Blood 2.6 mg/dL (1.6-2.4); Phosphorus, Blood 4.0 mg/dL (2.5-4.9); Potassium, Blood 4.7 mmol/L (3.5-5.5); Sodium, Blood 133 mmol/L (136-145); Total Protein, Blood 7.2 g/dL (6.4-8.2); Triglycerides 80 mg/dL (30-160)
== END | disposition home or self-care (01) ==
LOC: LAB SHORT 11:17 → LAB 11:17
PROVIDERS: Hospitalist
DX: I12.9 Hypertensive chronic kidney disease with stage 1 through stage 4 chronic kidney disease, or unspecified chronic kidney disease (principal); N18.9 Chronic kidney disease, unspecified; E87.6 Hypokalemia; K86.81 Exocrine pancreatic insufficiency
CPT/HCPCS: 80053; 83735; 84100; 84478; 85025

== ENCOUNTER 2025-05-09 07:31 | Emergency (ER) | payer MEDICARE, BC ==
[~2025-05-09] VITALS: Ht 170.2 cm; Wt 54.4 kg
[2025-05-09 08:10] LABS: Source, Urine Clean Catch
[2025-05-09 08:21] LABS: BASOPHILS ABSOLUTE AUTO 0.06 K/mm3 (0.00-0.23); BASOPHILS PERCENT AUTO 1 % (0-2); EOSINOPHILS ABSOLUTE AUTO 0.31 K/mm3 (0.00-0.68); EOSINOPHILS PERCENT AUTO 3 % (0-6); Hematocrit 27.3 % (33.0-51.0); Hemoglobin 8.8 g/dL (11.5-16.0); IMMATURE GRAN ABSOLUTE AUTO 0.05 K/mm3 (0.00-0.10); IMMATURE GRAN PERCENT AUTO 1 % (0-1); LYMPHOCYTES ABSOLUTE AUTO 1.65 K/mm3 (0.84-5.20); LYMPHOCYTES PERCENT AUTO 16 % (21-46); MONOCYTES ABSOLUTE AUTO 0.84 K/mm3 (0.16-1.47); MONOCYTES PERCENT AUTO 8 % (4-13); Mean Corpuscular HGB Conc 32.2 g/dL (31.5-36.5); Mean Corpuscular Volume 89 fL (80-100); NEUTROPHILS ABSOLUTE AUTO 7.40 K/mm3 (1.96-9.15); NEUTROPHILS PERCENT AUTO 72 % (41-73); NRBC ABSOLUTE 0.00 K/mm3 (0.00-0.02); NRBC Auto 0.0 /100 WBC (0.0-0.2); RDW Coefficient Variation 16.6 % (11.7-14.2); RDW Standard Deviation 54.4 fL (35.1-46.3)
[2025-05-09 08:25] LABS: Bilirubin, Urine Neg (Neg); Color, Urine Yellow (P-Yellow); Glucose Qualitative, Urine Neg (Neg); Ketones, Urine Neg (Neg); Leukocyte Esterase, Urine Neg (Neg); Protein, Urine 1+ (Neg); Specific Gravity, Urine 1.010 (1.003-1.022); Urobilinogen, Urine NORM (Normal)
[2025-05-09 08:41] LABS: Alanine Aminotransfer (ALT/SGP 19.0 U/L (12-78); Albumin, Blood 2.9 g/dL (3.4-5.0); Albumin/Globulin Ratio 0.7 (0.8-1.8); Anion Gap 10.0 mmol/L (3-11); Aspartate Aminotrans (AST/SGOT 24.0 U/L (12-37); Bilirubin, Total 0.3 mg/dL (0.1-1.0); Blood Urea Nitrogen 32.0 mg/dL (8-24); CO2, Blood 24.0 mmol/L (21-32); Calcium, Blood 8.8 mg/dL (8.5-10.1); Chloride, Blood 106.0 mmol/L (98-108); Creatinine, Blood 1.26 mg/dL (0.40-1.00); Globulin, Blood 4.0 g/dL (2.2-4.0); Glucose, Blood 84.0 mg/dL (70-99); Magnesium, Blood 2.6 mg/dL (1.6-2.4); Potassium, Blood 4.3 mmol/L (3.5-5.5); Sodium, Blood 136.0 mmol/L (136-145); Total Protein, Blood 6.9 g/dL (6.4-8.2)
[2025-05-09 09:08] LABS: Influenza A, PCR NEGATIVE (NEGATIVE); Influenza B, PCR NEGATIVE (NEGATIVE); Resp Syncytial Virus, PCR NEGATIVE (NEGATIVE); SARS-Cov-2 (COVID-19) PCR, MMC NEGATIVE (NEGATIVE)
[2025-05-09 10:42] VITALS: BP 133/94
== END 2025-05-09 10:43 | disposition home or self-care (01) ==
LOC: ER 07:31
PROVIDERS: Emergency Medicine
DX: R50.9 Fever, unspecified (principal); I12.9 Hypertensive chronic kidney disease with stage 1 through stage 4 chronic kidney disease, or unspecified chronic kidney disease; N18.30 Chronic kidney disease, stage 3 unspecified; K21.9 Gastro-esophageal reflux disease without esophagitis; Z79.899 Other long term (current) drug therapy; Z87.891 Personal history of nicotine dependence
CPT/HCPCS: 36415; 71045; 80053; 83605; 83735; 85025; 87637; 99283-25; A9270

== ENCOUNTER → 2025-05-14 | Outpatient (CLI) | payer MEDICARE, BC ==
[2025-05-14 11:45] LABS: BASOPHILS ABSOLUTE AUTO 0.07 K/mm3 (0.00-0.23); BASOPHILS PERCENT AUTO 1 % (0-2); EOSINOPHILS ABSOLUTE AUTO 0.25 K/mm3 (0.00-0.68); EOSINOPHILS PERCENT AUTO 3 % (0-6); Hematocrit 26.0 % (33.0-51.0); Hemoglobin 8.2 g/dL (11.5-16.0); IMMATURE GRAN ABSOLUTE AUTO 0.03 K/mm3 (0.00-0.10); IMMATURE GRAN PERCENT AUTO 0 % (0-1); LYMPHOCYTES ABSOLUTE AUTO 1.37 K/mm3 (0.84-5.20); LYMPHOCYTES PERCENT AUTO 17 % (21-46); MONOCYTES ABSOLUTE AUTO 0.64 K/mm3 (0.16-1.47); MONOCYTES PERCENT AUTO 8 % (4-13); Mean Corpuscular HGB Conc 31.5 g/dL (31.5-36.5); Mean Corpuscular Volume 89 fL (80-100); NEUTROPHILS ABSOLUTE AUTO 5.91 K/mm3 (1.96-9.15); NEUTROPHILS PERCENT AUTO 72 % (41-73); NRBC ABSOLUTE 0.00 K/mm3 (0.00-0.02); NRBC Auto 0.0 /100 WBC (0.0-0.2); Platelet Count 487 K/mm3 (150-400); RDW Coefficient Variation 16.2 % (11.7-14.2); RDW Standard Deviation 53.5 fL (35.1-46.3)
[2025-05-14 12:01] LABS: Alanine Aminotransfer (ALT/SGP 25 U/L (12-78); Albumin, Blood 2.7 g/dL (3.4-5.0); Albumin/Globulin Ratio 0.7 (0.8-1.8); Anion Gap 12 mmol/L (3-11); Aspartate Aminotrans (AST/SGOT 24 U/L (12-37); Bilirubin, Total 0.3 mg/dL (0.1-1.0); Blood Urea Nitrogen 34 mg/dL (8-24); CO2, Blood 23 mmol/L (21-32); Calcium, Blood 8.3 mg/dL (8.5-10.1); Chloride, Blood 105 mmol/L (98-108); Creatinine, Blood 1.37 mg/dL (0.40-1.00); Globulin, Blood 4.1 g/dL (2.2-4.0); Glucose, Blood 93 mg/dL (70-99); Magnesium, Blood 2.4 mg/dL (1.6-2.4); Phosphorus, Blood 3.8 mg/dL (2.5-4.9); Potassium, Blood 4.6 mmol/L (3.5-5.5); Sodium, Blood 135 mmol/L (136-145); Total Protein, Blood 6.8 g/dL (6.4-8.2); Triglycerides 91 mg/dL (30-160)
== END ==
LOC: LAB 10:15 → LAB SHORT 10:15
PROVIDERS: Hospitalist
DX: E87.6 Hypokalemia (principal); I12.9 Hypertensive chronic kidney disease with stage 1 through stage 4 chronic kidney disease, or unspecified chronic kidney disease; R63.4 Abnormal weight loss; K86.81 Exocrine pancreatic insufficiency
CPT/HCPCS: 80053; 83735; 84100; 84478; 85025

== ENCOUNTER → 2025-05-21 | Outpatient (CLI) | payer MEDICARE, BC ==
[2025-05-22 08:29] LABS: BASOPHILS ABSOLUTE AUTO 0.06 K/mm3 (0.00-0.23); BASOPHILS PERCENT AUTO 1 % (0-2); EOSINOPHILS ABSOLUTE AUTO 0.10 K/mm3 (0.00-0.68); EOSINOPHILS PERCENT AUTO 1 % (0-6); Hematocrit 27.0 % (33.0-51.0); Hemoglobin 8.3 g/dL (11.5-16.0); IMMATURE GRAN ABSOLUTE AUTO 0.03 K/mm3 (0.00-0.10); IMMATURE GRAN PERCENT AUTO 0 % (0-1); LYMPHOCYTES ABSOLUTE AUTO 0.98 K/mm3 (0.84-5.20); LYMPHOCYTES PERCENT AUTO 11 % (21-46); MONOCYTES ABSOLUTE AUTO 0.61 K/mm3 (0.16-1.47); MONOCYTES PERCENT AUTO 7 % (4-13); Mean Corpuscular HGB Conc 30.7 g/dL (31.5-36.5); Mean Corpuscular Volume 89 fL (80-100); NEUTROPHILS ABSOLUTE AUTO 6.78 K/mm3 (1.96-9.15); NEUTROPHILS PERCENT AUTO 79 % (41-73); NRBC ABSOLUTE 0.00 K/mm3 (0.00-0.02); NRBC Auto 0.0 /100 WBC (0.0-0.2); Platelet Count 524 K/mm3 (150-400); RDW Coefficient Variation 16.5 % (11.7-14.2); RDW Standard Deviation 53.1 fL (35.1-46.3)
[2025-05-22 10:09] LABS: Albumin, Blood 2.7 g/dL (3.4-5.0); Albumin/Globulin Ratio 0.7 (0.8-1.8); Anion Gap 12 mmol/L (3-11); Aspartate Aminotrans (AST/SGOT 26 U/L (12-37); Bilirubin, Total 0.3 mg/dL (0.1-1.0); Blood Urea Nitrogen 38 mg/dL (8-24); CO2, Blood 21 mmol/L (21-32); Calcium, Blood 8.7 mg/dL (8.5-10.1); Chloride, Blood 108 mmol/L (98-108); Creatinine, Blood 1.30 mg/dL (0.40-1.00); Globulin, Blood 4.1 g/dL (2.2-4.0); Glucose, Blood 91 mg/dL (70-99); Magnesium, Blood 2.7 mg/dL (1.6-2.4); Phosphorus, Blood 3.8 mg/dL (2.5-4.9); Potassium, Blood 4.8 mmol/L (3.5-5.5); Sodium, Blood 136 mmol/L (136-145); Total Protein, Blood 6.8 g/dL (6.4-8.2); Triglycerides 74 mg/dL (30-160)
[2025-05-28 11:36] LABS: Alanine Aminotransfer (ALT/SGP 22 U/L (12-78)
== END ==
LOC: LAB SHORT 10:34 → LAB 10:34
PROVIDERS: Hospitalist
DX: E46 Unspecified protein-calorie malnutrition (principal); E87.6 Hypokalemia; I12.9 Hypertensive chronic kidney disease with stage 1 through stage 4 chronic kidney disease, or unspecified chronic kidney disease; K86.81 Exocrine pancreatic insufficiency; N18.9 Chronic kidney disease, unspecified
CPT/HCPCS: 80053; 83735; 84100; 84478; 85025

== ENCOUNTER → 2025-05-28 | Outpatient (CLI) | payer MEDICARE, BC ==
[2025-05-28 17:01] LABS: BASOPHILS ABSOLUTE AUTO 0.06 K/mm3 (0.00-0.23); BASOPHILS PERCENT AUTO 1 % (0-2); EOSINOPHILS ABSOLUTE AUTO 0.30 K/mm3 (0.00-0.68); EOSINOPHILS PERCENT AUTO 3 % (0-6); Hematocrit 28.6 % (33.0-51.0); Hemoglobin 8.7 g/dL (11.5-16.0); IMMATURE GRAN ABSOLUTE AUTO 0.13 K/mm3 (0.00-0.10); IMMATURE GRAN PERCENT AUTO 1 % (0-1); LYMPHOCYTES ABSOLUTE AUTO 1.95 K/mm3 (0.84-5.20); LYMPHOCYTES PERCENT AUTO 18 % (21-46); MONOCYTES ABSOLUTE AUTO 0.72 K/mm3 (0.16-1.47); MONOCYTES PERCENT AUTO 7 % (4-13); Mean Corpuscular HGB Conc 30.4 g/dL (31.5-36.5); Mean Corpuscular Volume 88 fL (80-100); NEUTROPHILS ABSOLUTE AUTO 7.48 K/mm3 (1.96-9.15); NEUTROPHILS PERCENT AUTO 70 % (41-73); NRBC ABSOLUTE 0.00 K/mm3 (0.00-0.02); NRBC Auto 0.0 /100 WBC (0.0-0.2); Platelet Count 596 K/mm3 (150-400); RDW Coefficient Variation 16.8 % (11.7-14.2); RDW Standard Deviation 54.5 fL (35.1-46.3)
[2025-05-28 19:20] LABS: Alanine Aminotransfer (ALT/SGP 30 U/L (12-78); Albumin, Blood 3.0 g/dL (3.4-5.0); Albumin/Globulin Ratio 0.8 (0.8-1.8); Anion Gap 12 mmol/L (3-11); Aspartate Aminotrans (AST/SGOT 38 U/L (12-37); Bilirubin, Total 0.3 mg/dL (0.1-1.0); Blood Urea Nitrogen 36 mg/dL (8-24); CO2, Blood 26 mmol/L (21-32); Calcium, Blood 8.6 mg/dL (8.5-10.1); Chloride, Blood 100 mmol/L (98-108); Creatinine, Blood 1.28 mg/dL (0.40-1.00); Globulin, Blood 3.8 g/dL (2.2-4.0); Glucose, Blood 86 mg/dL (70-99); Magnesium, Blood 2.1 mg/dL (1.6-2.4); Phosphorus, Blood 4.1 mg/dL (2.5-4.9); Potassium, Blood 4.3 mmol/L (3.5-5.5); Sodium, Blood 134 mmol/L (136-145); Total Protein, Blood 6.8 g/dL (6.4-8.2); Triglycerides 113 mg/dL (30-160)
== END ==
LOC: LAB 16:16 → LAB SHORT 16:16
PROVIDERS: Hospitalist
DX: E46 Unspecified protein-calorie malnutrition (principal); E87.6 Hypokalemia; I12.9 Hypertensive chronic kidney disease with stage 1 through stage 4 chronic kidney disease, or unspecified chronic kidney disease; K86.81 Exocrine pancreatic insufficiency
CPT/HCPCS: 80053; 83735; 84100; 84478; 85025

== ENCOUNTER → 2025-06-11 | Outpatient (CLI) | payer MEDICARE, BC ==
[2025-06-11 18:21] LABS: BASOPHILS ABSOLUTE AUTO 0.04 K/mm3 (0.00-0.23); BASOPHILS PERCENT AUTO 0 % (0-2); EOSINOPHILS ABSOLUTE AUTO 0.18 K/mm3 (0.00-0.68); EOSINOPHILS PERCENT AUTO 2 % (0-6); Hematocrit 30.2 % (33.0-51.0); Hemoglobin 9.3 g/dL (11.5-16.0); IMMATURE GRAN ABSOLUTE AUTO 0.04 K/mm3 (0.00-0.10); IMMATURE GRAN PERCENT AUTO 0 % (0-1); LYMPHOCYTES ABSOLUTE AUTO 1.59 K/mm3 (0.84-5.20); LYMPHOCYTES PERCENT AUTO 18 % (21-46); MONOCYTES ABSOLUTE AUTO 0.58 K/mm3 (0.16-1.47); MONOCYTES PERCENT AUTO 6 % (4-13); Mean Corpuscular HGB Conc 30.8 g/dL (31.5-36.5); Mean Corpuscular Volume 86 fL (80-100); NEUTROPHILS ABSOLUTE AUTO 6.68 K/mm3 (1.96-9.15); NEUTROPHILS PERCENT AUTO 73 % (41-73); NRBC ABSOLUTE 0.00 K/mm3 (0.00-0.02); NRBC Auto 0.0 /100 WBC (0.0-0.2); Platelet Count 569 K/mm3 (150-400); RDW Coefficient Variation 17.3 % (11.7-14.2); RDW Standard Deviation 54.8 fL (35.1-46.3)
[2025-06-11 18:59] LABS: Alanine Aminotransfer (ALT/SGP 35 U/L (12-78); Albumin, Blood 3.5 g/dL (3.4-5.0); Albumin/Globulin Ratio 0.8 (0.8-1.8); Anion Gap 13 mmol/L (3-11); Aspartate Aminotrans (AST/SGOT 32 U/L (12-37); Bilirubin, Direct <0.1 mg/dL (0.0-0.3); Bilirubin, Total 0.4 mg/dL (0.1-1.0); Blood Urea Nitrogen 36 mg/dL (8-24); C-REACTIVE PROTEIN, EXT RANGE 1.840 mg/dL (0.000-0.300); CO2, Blood 25 mmol/L (21-32); Calcium, Blood 8.8 mg/dL (8.5-10.1); Chloride, Blood 101 mmol/L (98-108); Globulin, Blood 4.2 g/dL (2.2-4.0); Glucose, Blood 90 mg/dL (70-99); Magnesium, Blood 2.4 mg/dL (1.6-2.4); Phosphorus, Blood 4.3 mg/dL (2.5-4.9); Potassium, Blood 3.8 mmol/L (3.5-5.5); Sodium, Blood 135 mmol/L (136-145); Total Iron Binding Capacity 384 ug/dL (250-450); Total Protein, Blood 7.7 g/dL (6.4-8.2); Triglycerides 77 mg/dL (30-160)
[2025-06-11 19:27] LABS: Creatinine, Blood 1.35 mg/dL (0.40-1.00); Ferritin, Serum 92 ng/mL (8-252); Prealbumin, Blood 29.1 mg/dL (20.0-40.0)
== END ==
LOC: LAB SHORT 14:25 → LAB 14:25
PROVIDERS: Hospitalist
DX: E46 Unspecified protein-calorie malnutrition (principal); E87.6 Hypokalemia; I12.9 Hypertensive chronic kidney disease with stage 1 through stage 4 chronic kidney disease, or unspecified chronic kidney disease; K86.81 Exocrine pancreatic insufficiency
CPT/HCPCS: 80053; 82248; 82607; 82728; 82746; 83540; 83550; 83735; 84100; 84134; 84478; 85025; 86140

== ENCOUNTER → 2025-06-25 | Outpatient (CLI) | payer MEDICARE, BC ==
[2025-06-25 14:48] LABS: BASOPHILS ABSOLUTE AUTO 0.07 K/mm3 (0.00-0.23); BASOPHILS PERCENT AUTO 1 % (0-2); EOSINOPHILS ABSOLUTE AUTO 0.42 K/mm3 (0.00-0.68); EOSINOPHILS PERCENT AUTO 4 % (0-6); Hematocrit 31.4 % (33.0-51.0); Hemoglobin 9.4 g/dL (11.5-16.0); IMMATURE GRAN ABSOLUTE AUTO 0.05 K/mm3 (0.00-0.10); IMMATURE GRAN PERCENT AUTO 1 % (0-1); LYMPHOCYTES ABSOLUTE AUTO 1.56 K/mm3 (0.84-5.20); LYMPHOCYTES PERCENT AUTO 15 % (21-46); MONOCYTES ABSOLUTE AUTO 0.69 K/mm3 (0.16-1.47); MONOCYTES PERCENT AUTO 7 % (4-13); Mean Corpuscular HGB Conc 29.9 g/dL (31.5-36.5); Mean Corpuscular Volume 86 fL (80-100); NEUTROPHILS ABSOLUTE AUTO 7.48 K/mm3 (1.96-9.15); NEUTROPHILS PERCENT AUTO 73 % (41-73); NRBC ABSOLUTE 0.00 K/mm3 (0.00-0.02); NRBC Auto 0.0 /100 WBC (0.0-0.2); Platelet Count 470 K/mm3 (150-400); RDW Coefficient Variation 17.1 % (11.7-14.2); RDW Standard Deviation 53.5 fL (35.1-46.3)
[2025-06-25 16:39] LABS: Alanine Aminotransfer (ALT/SGP 39 U/L (12-78); Albumin, Blood 3.1 g/dL (3.4-5.0); Albumin/Globulin Ratio 0.7 (0.8-1.8); Anion Gap 10 mmol/L (3-11); Aspartate Aminotrans (AST/SGOT 37 U/L (12-37); Bilirubin, Total 0.4 mg/dL (0.1-1.0); Blood Urea Nitrogen 36 mg/dL (8-24); CO2, Blood 25 mmol/L (21-32); Calcium, Blood 8.8 mg/dL (8.5-10.1); Chloride, Blood 106 mmol/L (98-108); Creatinine, Blood 1.12 mg/dL (0.40-1.00); Globulin, Blood 4.2 g/dL (2.2-4.0); Glucose, Blood 91 mg/dL (70-99); Magnesium, Blood 2.5 mg/dL (1.6-2.4); Phosphorus, Blood 3.6 mg/dL (2.5-4.9); Potassium, Blood 4.9 mmol/L (3.5-5.5); Sodium, Blood 136 mmol/L (136-145); Total Protein, Blood 7.3 g/dL (6.4-8.2); Triglycerides 78 mg/dL (30-160)
== END ==
LOC: LAB 09:35 → LAB SHORT 09:35
PROVIDERS: Hospitalist
DX: E46 Unspecified protein-calorie malnutrition (principal); E87.6 Hypokalemia; I12.9 Hypertensive chronic kidney disease with stage 1 through stage 4 chronic kidney disease, or unspecified chronic kidney disease; K86.81 Exocrine pancreatic insufficiency
CPT/HCPCS: 80053; 83735; 84100; 84478; 85025

== ENCOUNTER 2025-06-27 06:32 | Day surgery (SDC) | payer MEDICARE, BC ==
[~2025-06-27 06:32] MED LIST changes: +Sod Ferric Gluc Complx/Sucrose 125 MG in NS 100 ML IV SCH
[2025-06-27 13:44] VITALS: BP 159/92
== END 2025-06-27 14:38 | disposition home or self-care (01) ==
LOC: ATC 06:32
DX: I12.9 Hypertensive chronic kidney disease with stage 1 through stage 4 chronic kidney disease, or unspecified chronic kidney disease (principal); N18.31 Chronic kidney disease, stage 3a; D63.1 Anemia in chronic kidney disease; G40.909 Epilepsy, unspecified, not intractable, without status epilepticus; E03.9 Hypothyroidism, unspecified; K52.9 Noninfective gastroenteritis and colitis, unspecified; G35.D Multiple sclerosis, unspecified; Z79.82 Long term (current) use of aspirin; Z79.899 Other long term (current) drug therapy; Z87.891 Personal history of nicotine dependence; Z91.018 Allergy to other foods; Z91.09 Other allergy status, other than to drugs and biological substances; Z90.710 Acquired absence of both cervix and uterus; Z90.49 Acquired absence of other specified parts of digestive tract
CPT/HCPCS: 96365; J2916

== ENCOUNTER 2025-07-03 01:22 | Day surgery (SDC) | payer MEDICARE, BC ==
[2025-07-03 08:58] VITALS: BP 146/95
== END 2025-07-03 09:53 | disposition home or self-care (01) ==
LOC: ATC 01:22
DX: I12.9 Hypertensive chronic kidney disease with stage 1 through stage 4 chronic kidney disease, or unspecified chronic kidney disease (principal); N18.31 Chronic kidney disease, stage 3a; D63.1 Anemia in chronic kidney disease; G40.909 Epilepsy, unspecified, not intractable, without status epilepticus; K52.9 Noninfective gastroenteritis and colitis, unspecified; E03.9 Hypothyroidism, unspecified; G35.D Multiple sclerosis, unspecified; Z87.891 Personal history of nicotine dependence; Z79.82 Long term (current) use of aspirin; Z79.899 Other long term (current) drug therapy; Z91.018 Allergy to other foods; Z91.048 Other nonmedicinal substance allergy status; Z90.49 Acquired absence of other specified parts of digestive tract; Z90.710 Acquired absence of both cervix and uterus
CPT/HCPCS: J2916

== ENCOUNTER → 2025-07-09 | Outpatient (CLI) | payer MEDICARE, BC ==
[~2025-07-09] MED LIST changes: -Sod Ferric Gluc Complx/Sucrose 125 MG in NS 100 ML IV SCH
[2025-07-09 14:21] LABS: BASOPHILS ABSOLUTE AUTO 0.07 K/mm3 (0.00-0.23); BASOPHILS PERCENT AUTO 1 % (0-2); EOSINOPHILS ABSOLUTE AUTO 0.29 K/mm3 (0.00-0.68); EOSINOPHILS PERCENT AUTO 3 % (0-6); Hematocrit 31.1 % (33.0-51.0); Hemoglobin 9.4 g/dL (11.5-16.0); IMMATURE GRAN ABSOLUTE AUTO 0.03 K/mm3 (0.00-0.10); IMMATURE GRAN PERCENT AUTO 0 % (0-1); LYMPHOCYTES ABSOLUTE AUTO 1.42 K/mm3 (0.84-5.20); LYMPHOCYTES PERCENT AUTO 16 % (21-46); MONOCYTES ABSOLUTE AUTO 0.36 K/mm3 (0.16-1.47); MONOCYTES PERCENT AUTO 4 % (4-13); Mean Corpuscular HGB Conc 30.2 g/dL (31.5-36.5); Mean Corpuscular Volume 85 fL (80-100); NEUTROPHILS ABSOLUTE AUTO 6.71 K/mm3 (1.96-9.15); NEUTROPHILS PERCENT AUTO 76 % (41-73); NRBC ABSOLUTE 0.00 K/mm3 (0.00-0.02); NRBC Auto 0.0 /100 WBC (0.0-0.2); Platelet Count 465 K/mm3 (150-400); RDW Coefficient Variation 17.2 % (11.7-14.2); RDW Standard Deviation 52.7 fL (35.1-46.3)
[2025-07-09 19:24] LABS: Alanine Aminotransfer (ALT/SGP 54 U/L (12-78); Albumin, Blood 3.0 g/dL (3.4-5.0); Albumin/Globulin Ratio 0.7 (0.8-1.8); Anion Gap 13 mmol/L (3-11); Aspartate Aminotrans (AST/SGOT 55 U/L (12-37); Bilirubin, Direct <0.1 mg/dL (0.0-0.3); Bilirubin, Total 0.3 mg/dL (0.1-1.0); Blood Urea Nitrogen 35 mg/dL (8-24); CO2, Blood 22 mmol/L (21-32); Calcium, Blood 8.6 mg/dL (8.5-10.1); Chloride, Blood 106 mmol/L (98-108); Creatinine, Blood 1.45 mg/dL (0.40-1.00); Ferritin, Serum 186 ng/mL (8-252); Globulin, Blood 4.1 g/dL (2.2-4.0); Glucose, Blood 117 mg/dL (70-99); Magnesium, Blood 2.0 mg/dL (1.6-2.4); Phosphorus, Blood 3.3 mg/dL (2.5-4.9); Potassium, Blood 3.3 mmol/L (3.5-5.5); Prealbumin, Blood 17.5 mg/dL (20.0-40.0); Sodium, Blood 138 mmol/L (136-145); Total Iron Binding Capacity 356 ug/dL (250-450); Total Protein, Blood 7.1 g/dL (6.4-8.2); Triglycerides 124 mg/dL (30-160)
== END ==
LOC: LAB 11:09 → LAB SHORT 11:09
PROVIDERS: Hospitalist
DX: I12.9 Hypertensive chronic kidney disease with stage 1 through stage 4 chronic kidney disease, or unspecified chronic kidney disease (principal); N18.31 Chronic kidney disease, stage 3a; D63.1 Anemia in chronic kidney disease; E46 Unspecified protein-calorie malnutrition; E87.6 Hypokalemia; K86.81 Exocrine pancreatic insufficiency
CPT/HCPCS: 80053; 82248; 82728; 83540; 83550; 83735; 84100; 84134; 84478; 85025

== ENCOUNTER 2025-07-10 02:37 | Day surgery (SDC) | payer MEDICARE, BC ==
[~2025-07-10 02:37] MED LIST changes: +Sod Ferric Gluc Complx/Sucrose 125 MG in NS 100 ML IV SCH
[2025-07-10 09:00] VITALS: BP 187/102
[2025-07-10 09:58] VITALS: BP 176/104
[2025-07-10 10:15] VITALS: BP 170/103
--- NOTE | 2025-07-10 10:32 | NUR ---
PTS BP WAS ELEVATED NOTED DURING HER APPOINTMENT. PTS SPOUSE STS SHE TOOK HER BP MEDS LATE THIS MORNING. THIS RN WAS GOING TO CALL THE MD, BUT PT AND SPOUSE REFUSED AND STATED THEY WOULD RECHECK BP AT HOME AND IF IT WAS STILL ELEVATED BY NOON THEY WOULD GO TO THE ER.
== END 2025-07-10 10:15 | disposition home or self-care (01) ==
LOC: ATC 02:37
DX: I12.9 Hypertensive chronic kidney disease with stage 1 through stage 4 chronic kidney disease, or unspecified chronic kidney disease (principal); N18.31 Chronic kidney disease, stage 3a; D63.1 Anemia in chronic kidney disease; K52.9 Noninfective gastroenteritis and colitis, unspecified; G40.909 Epilepsy, unspecified, not intractable, without status epilepticus; E03.9 Hypothyroidism, unspecified; G35.D Multiple sclerosis, unspecified; I95.1 Orthostatic hypotension; I87.2 Venous insufficiency (chronic) (peripheral); Z87.891 Personal history of nicotine dependence; Z79.82 Long term (current) use of aspirin; Z79.899 Other long term (current) drug therapy; Z91.018 Allergy to other foods; Z91.048 Other nonmedicinal substance allergy status; Z98.84 Bariatric surgery status
CPT/HCPCS: 96365; J2916

== ENCOUNTER 2025-07-17 02:42 | Day surgery (SDC) | payer MEDICARE, BC ==
[~2025-07-17 02:42] MED LIST changes: -Sod Ferric Gluc Complx/Sucrose 125 MG in NS 100 ML IV SCH
[2025-07-17] MEDS ORDERED: Sod Ferric Gluc Complx/Sucrose 125 MG in NS 100 ML IV SCH (06:00)
[2025-07-17 09:01] VITALS: BP 135/89
== END 2025-07-17 10:03 | disposition home or self-care (01) ==
LOC: ATC 02:42
DX: I12.9 Hypertensive chronic kidney disease with stage 1 through stage 4 chronic kidney disease, or unspecified chronic kidney disease (principal); N18.31 Chronic kidney disease, stage 3a; D63.1 Anemia in chronic kidney disease; E03.9 Hypothyroidism, unspecified; G40.909 Epilepsy, unspecified, not intractable, without status epilepticus; Z87.891 Personal history of nicotine dependence; Z79.82 Long term (current) use of aspirin; Z79.899 Other long term (current) drug therapy; Z91.018 Allergy to other foods; Z91.09 Other allergy status, other than to drugs and biological substances; Z98.84 Bariatric surgery status; Z90.710 Acquired absence of both cervix and uterus; Z90.49 Acquired absence of other specified parts of digestive tract; G35.D Multiple sclerosis, unspecified
CPT/HCPCS: 96365; J2916

== ENCOUNTER → 2025-07-23 | Outpatient (CLI) | payer MEDICARE, BC ==
[2025-07-23 18:16] LABS: BASOPHILS ABSOLUTE AUTO 0.07 K/mm3 (0.00-0.23); BASOPHILS PERCENT AUTO 1 % (0-2); EOSINOPHILS ABSOLUTE AUTO 0.30 K/mm3 (0.00-0.68); EOSINOPHILS PERCENT AUTO 3 % (0-6); Hematocrit 32.3 % (33.0-51.0); Hemoglobin 9.7 g/dL (11.5-16.0); IMMATURE GRAN ABSOLUTE AUTO 0.04 K/mm3 (0.00-0.10); IMMATURE GRAN PERCENT AUTO 0 % (0-1); LYMPHOCYTES ABSOLUTE AUTO 2.34 K/mm3 (0.84-5.20); LYMPHOCYTES PERCENT AUTO 26 % (21-46); MONOCYTES ABSOLUTE AUTO 0.58 K/mm3 (0.16-1.47); MONOCYTES PERCENT AUTO 6 % (4-13); Mean Corpuscular HGB Conc 30.0 g/dL (31.5-36.5); Mean Corpuscular Volume 84 fL (80-100); NEUTROPHILS ABSOLUTE AUTO 5.68 K/mm3 (1.96-9.15); NEUTROPHILS PERCENT AUTO 63 % (41-73); NRBC ABSOLUTE 0.00 K/mm3 (0.00-0.02); NRBC Auto 0.0 /100 WBC (0.0-0.2); Platelet Count 464 K/mm3 (150-400); RDW Coefficient Variation 17.2 % (11.7-14.2); RDW Standard Deviation 52.1 fL (35.1-46.3)
[2025-07-23 18:30] LABS: Alanine Aminotransfer (ALT/SGP 47 U/L (12-78); Albumin, Blood 3.1 g/dL (3.4-5.0); Albumin/Globulin Ratio 0.7 (0.8-1.8); Anion Gap 6 mmol/L (3-11); Aspartate Aminotrans (AST/SGOT 48 U/L (12-37); Bilirubin, Total 0.3 mg/dL (0.1-1.0); Blood Urea Nitrogen 39 mg/dL (8-24); CO2, Blood 27 mmol/L (21-32); Calcium, Blood 8.8 mg/dL (8.5-10.1); Chloride, Blood 105 mmol/L (98-108); Creatinine, Blood 1.39 mg/dL (0.40-1.00); Globulin, Blood 4.2 g/dL (2.2-4.0); Glucose, Blood 87 mg/dL (70-99); Magnesium, Blood 2.4 mg/dL (1.6-2.4); Phosphorus, Blood 3.6 mg/dL (2.5-4.9); Potassium, Blood 4.7 mmol/L (3.5-5.5); Sodium, Blood 133 mmol/L (136-145); Total Protein, Blood 7.3 g/dL (6.4-8.2); Triglycerides 97 mg/dL (30-160)
== END ==
LOC: LAB 12:36 → LAB SHORT 12:36
PROVIDERS: Hospitalist
DX: E46 Unspecified protein-calorie malnutrition (principal); E87.6 Hypokalemia; I12.9 Hypertensive chronic kidney disease with stage 1 through stage 4 chronic kidney disease, or unspecified chronic kidney disease; K86.81 Exocrine pancreatic insufficiency
CPT/HCPCS: 80053; 83735; 84100; 84478; 85025

== ENCOUNTER 2025-08-04 00:44 | Day surgery (SDC) | payer MEDICARE, BC ==
[2025-08-04] MEDS ORDERED: Sod Ferric Gluc Complx/Sucrose 125 MG in NS 100 ML IV SCH (01:00)
[2025-08-04 09:39] VITALS: BP 136/81
== END 2025-08-04 10:33 | disposition home or self-care (01) ==
LOC: ATC 00:44
DX: I12.9 Hypertensive chronic kidney disease with stage 1 through stage 4 chronic kidney disease, or unspecified chronic kidney disease (principal); N18.31 Chronic kidney disease, stage 3a; D63.1 Anemia in chronic kidney disease; G40.909 Epilepsy, unspecified, not intractable, without status epilepticus; E03.9 Hypothyroidism, unspecified; G35.D Multiple sclerosis, unspecified; K52.9 Noninfective gastroenteritis and colitis, unspecified; Z79.82 Long term (current) use of aspirin; Z79.890 Hormone replacement therapy; Z79.899 Other long term (current) drug therapy; Z91.018 Allergy to other foods; Z91.09 Other allergy status, other than to drugs and biological substances; Z87.891 Personal history of nicotine dependence; Z90.49 Acquired absence of other specified parts of digestive tract
CPT/HCPCS: 96365; J2916

== ENCOUNTER → 2025-08-06 | Outpatient (CLI) | payer MEDICARE, BC ==
[~2025-08-06] MED LIST changes: +AMOX-CLAV 875-1 EAC5 PO; +Zithromax Tri-500 MG PO
[2025-08-06 12:50] LABS: BASOPHILS ABSOLUTE AUTO 0.08 K/mm3 (0.00-0.23); BASOPHILS PERCENT AUTO 1 % (0-2); EOSINOPHILS ABSOLUTE AUTO 0.20 K/mm3 (0.00-0.68); EOSINOPHILS PERCENT AUTO 2 % (0-6); Hematocrit 36.2 % (33.0-51.0); Hemoglobin 11.1 g/dL (11.5-16.0); IMMATURE GRAN ABSOLUTE AUTO 0.05 K/mm3 (0.00-0.10); IMMATURE GRAN PERCENT AUTO 1 % (0-1); LYMPHOCYTES ABSOLUTE AUTO 1.43 K/mm3 (0.84-5.20); LYMPHOCYTES PERCENT AUTO 13 % (21-46); MONOCYTES ABSOLUTE AUTO 0.55 K/mm3 (0.16-1.47); MONOCYTES PERCENT AUTO 5 % (4-13); Mean Corpuscular HGB Conc 30.7 g/dL (31.5-36.5); Mean Corpuscular Volume 83 fL (80-100); NEUTROPHILS ABSOLUTE AUTO 8.36 K/mm3 (1.96-9.15); NEUTROPHILS PERCENT AUTO 78 % (41-73); NRBC ABSOLUTE 0.00 K/mm3 (0.00-0.02); NRBC Auto 0.0 /100 WBC (0.0-0.2); Platelet Count 473 K/mm3 (150-400); RDW Coefficient Variation 18.2 % (11.7-14.2); RDW Standard Deviation 54.4 fL (35.1-46.3)
[2025-08-06 12:58] LABS: Alanine Aminotransfer (ALT/SGP 32 U/L (12-78); Albumin, Blood 3.1 g/dL (3.4-5.0); Albumin/Globulin Ratio 0.7 (0.8-1.8); Anion Gap 11 mmol/L (3-11); Aspartate Aminotrans (AST/SGOT 28 U/L (12-37); Bilirubin, Total 0.3 mg/dL (0.1-1.0); Blood Urea Nitrogen 38 mg/dL (8-24); CO2, Blood 28 mmol/L (21-32); Calcium, Blood 8.9 mg/dL (8.5-10.1); Chloride, Blood 101 mmol/L (98-108); Creatinine, Blood 1.36 mg/dL (0.40-1.00); Globulin, Blood 4.4 g/dL (2.2-4.0); Glucose, Blood 101 mg/dL (70-99); Magnesium, Blood 2.3 mg/dL (1.6-2.4); Phosphorus, Blood 3.4 mg/dL (2.5-4.9); Potassium, Blood 3.7 mmol/L (3.5-5.5); Sodium, Blood 136 mmol/L (136-145); Thyroid Stimulating Hormone 0.569 uIU/mL (0.360-4.800); Total Protein, Blood 7.5 g/dL (6.4-8.2); Triglycerides 126 mg/dL (30-160)
== END ==
LOC: LAB 09:24 → LAB SHORT 09:24
PROVIDERS: Physician Assistant Medical
DX: Z45.2 Encounter for adjustment and management of vascular access device (principal); E46 Unspecified protein-calorie malnutrition; E87.6 Hypokalemia; K86.81 Exocrine pancreatic insufficiency; R63.4 Abnormal weight loss
CPT/HCPCS: 80053; 83735; 84100; 84439; 84443; 84478; 85025

== ENCOUNTER 2025-08-07 07:41 | Day surgery (SDC) | payer MEDICARE, BC ==
[~2025-08-07 07:41] MED LIST changes: -AMOX-CLAV 875-1 EAC5 PO; +Sod Ferric Gluc Complx/Sucrose 125 MG in NS 100 ML IV SCH; -Zithromax Tri-500 MG PO
[2025-08-07 07:47] VITALS: BP 146/90
== END 2025-08-07 08:54 | disposition home or self-care (01) ==
LOC: ATC 07:41
DX: I12.9 Hypertensive chronic kidney disease with stage 1 through stage 4 chronic kidney disease, or unspecified chronic kidney disease (principal); D63.1 Anemia in chronic kidney disease; N18.31 Chronic kidney disease, stage 3a; G40.909 Epilepsy, unspecified, not intractable, without status epilepticus; K52.9 Noninfective gastroenteritis and colitis, unspecified; Z91.048 Other nonmedicinal substance allergy status; Z91.018 Allergy to other foods; Z87.891 Personal history of nicotine dependence
CPT/HCPCS: 96365; J2916